=== PATIENT | female | born 1960 | race Caucasian/White ===

== ENCOUNTER 2025-03-12 13:58 | Outpatient (AMB) | payer MEDICARE, SELFPAY ==
--- OUTSIDE RECORDS SUMMARY | 2024-05-27 08:30 | XMS_ITS ---
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 Name Role Phone YUE ESTEVEZ Unavailable [phone] LALO PRATER [phone] Encounters Encounter Location Date Provider Diagnosis [facility] [address] [place] [address] 05/27/2024 LALO PRATER Plan Of Treatment Next Appt Details Provider Name:LALO PRATER , 05/13/2025 01:00:00 PM, [address], [address], [place], [address], Progress Notes * Varsha COOKeDOB: (65 yo F)Acc No.[id number]:05/27/2024 Patient: Wendi GARCIA Provider: Debbie PRATER :1960 A ge:64 Y S ex:Female Date:05/27/2024 Address:[address] [place] [address] * Electronic signature of SID PRATER PA-C, [id number] on 03/12/2025 at 06:35 PM EST Sign off status: Pending * Provider: Debbie PRATER Date: 0 05/27/2024 Generated for Printi ng/Faxing/eTransmitting on: 1 05/13/2024 06:35 PM EST
--- NOTE | 2025-03-12 14:01 | MHC.OFFVIS ---
Intake Visit Reasons: 6M Allergies lisinopril Allergy (Unknown, Verified 03/12/25 14:07) Unknown Medication List - Last Reconciled 03/12/25 by Hortensia Ordaz CNP albuterol sulfate 90 mcg/actuation 1 puff inhalation QID amlodipine 5 mg PO DAILY rvegpsrcso-maruntvlzpfom-zamj 50-325-40 mg 1 tab PO Q6H PRN 30 days gabapentin 800 mg PO TID trazodone mg PO BEDTIME PRN HPI Comments Details: She was doing okay. Over the last few months, she had few brief, sharp, shooting-pains to left side of head that lasted about 3 seconds. It could happen once every couple of weeks, none within the last four weeks or so. Some mild, pressure-type headaches to top of head. Butalbital as needed helps. Mood has been okay, working with psychiatrist. Had twin grandsons born 01/2024.?Seen at [facility] for headache around 11/2023. Stress is trigger for headaches. Previously, concerned about taking butalbital as she is caffeine sensitive. Maintains sleep schedule as it is important for managing bipolar disorder. She has history of anxiety, depression and bipolar disorder. She started having headaches when she was 22 years old treated by [facility] quite effectively. On January 25, 2021 she was seen in the emergency room for severe headache that had been going on for [address] scan was negative. She was given Fioricet which helped. Since then she has had a few headaches one for which he needed to take a single Fioricet. [facility] Medical History (Updated 03/12/25 @ 14:06 by Hortensia Ordaz CNP) Hyperlipidemia Hypertension Mood disorder Asthma Migraine Insomnia Tension headache Review of Systems Const Denies chills, Denies daytime sleepiness, Reports difficulty sleeping, Denies fatigue, Denies fever(s), Denies frequent falls, Reports headache(s), Denies increased appetite, Denies poor appetite, Denies snoring, Denies weakness, Denies weight gain and Denies weight loss Eyes Denies loss of vision ENT Denies vertigo, Reports dizziness, Reports headache(s) and Reports neck pain Card Denies chest pain at rest, Denies chest pain with activity, Denies syncope, Denies leg edema, Denies palpitations, Denies dyspnea and Denies dyspnea on exertion Resp Denies cough, Denies dyspnea, Denies dyspnea on exertion and Denies snoring GI Denies abdominal pain, Denies constipation, Denies heartburn, Denies diarrhea and Denies nausea Denies urinary frequency, Denies urinary incontinence and Denies urinary urgency Musc Denies abnormal gait, Reports back pain, Reports myalgias, Denies arthralgias, Reports neck pain, Denies numbness and Denies tingling Neuro Denies abnormal gait, Denies vertigo, Reports dizziness, Denies syncope, Denies frequent falls, Reports headache(s), Denies lack of coordination, Denies loss of vision, Denies memory loss, Denies numbness, Denies Other visual disturbances, Denies restless legs, Denies seizure-like activity, Denies tingling, Denies paresthesias, Denies tremor(s) and Denies weakness Psych Reports anxiety, Denies depression, Denies auditory hallucinations, Denies memory loss and Denies visual hallucinations Endo Denies fatigue and Denies palpitations Physical Exam Const Other: General Appearance:? normal, in no acute distress. Heart:? S1, S2 normal, no murmurs. Lungs:? clear anteriorly and posteriorly. Musculoskeletal:? normal. Extremities:? no edema. Psych:? alert, oriented, cognitive function intact, cooperative with exam. Neuro Other: Abnormal Neurological Findings:?none.? Mental Status: alert and oriented X 3. Normal attention, orientation, memory, and affect. Cranial Nerves: Pupils are equal, round, and reactive to light. External ocular muscles are intact. Visual zarate are full, no ptosis. Face is symmetrical, no facial weakness or droop. Facial sensations are normal. Tongue protrudes in midline. Palate elevates symmetrically. Shoulder shrugging is normal Motor Examination: Normal muscle tone, bulk and strength. No atrophy or fasciculations. No drift of the extended upper extremities. DTR 2+. Plantars are flexor. Sensory Exam: Normal light touch, temperature, pinprick, vibration, and joint-position sensations. Rhomberg sign is absent. Coordination: No ataxia. No titubation. Gait Exam: Within normal limits. Cerebellar Signs: Gezrrt-nz-hbgu is okay. Extrapyramidal System: No tremor, rigidity with normal facial expressions. No bradykinesia. No bradyphrenia. Normal arm swing and posture. No propulsion or retropulsion. Speech: Normal. Assessment & Plan Assessment & Plan (1) Tension headache: Code(s): G44.209 - Tension-type headache, unspecified, not intractable Category: Medical Plan: Continue idibnxotkz-ICXY-xtsx 50-325-40mg 1 tablet q6h as needed for headache #12 for 30 days. Follow up in 6 months or sooner as needed. Plan Meds tried: naproxen, sumatriptan Coding Level of Care Code Est Pt Level 4 (63901) Diagnoses Tension headache G44.209
--- OUTSIDE RECORDS SUMMARY | 2025-03-12 18:34 | XMS_ITS | Patient Health Record ---
Author Organization [facility] Address [address] [place] [address] Care Team Providers Care General Teller Name Role Phone GRZEGORZ DAVALOS Primary Care Provider Unavail able Hoda Marshall Unavailable [phone] Allergies Allergen (clinical drug ingredient) Drug/Non Drug Allergy documented on EMR Reaction Allergy Type Onset Date Status lisinopril Lisinopril Unknown Drug Allergy Activ e Reason For Referral No Information Medications Medication SIG (Take, Route, Frequency, Duration) Notes Start Date End Date Status Cinnamon 500 MG as directed Orally Active Glucosamine Chond Complex/MSM - as directed Orally Active Probiotic - as directed Orally Active Ventolin HFA 108 (90 Base) MCG/ACT 1 puff as needed Inhalation every 4 hrs Active Multi-Vitamin - 1 tablet Orally Once a day; Duration: 30 day(s) Active Alpha Lipoic Acid 200 MG 1 capsule Orally Once a day; Duration: 30 day(s) Active Fish Oil 1200 MG 1 capsule Orally Onc e a day; Duration: 30 day(s) Active Melatonin 5 MG 1 tablet in the evening Orally Once a day; Duration: 30 day(s) Unknown Dose Active LORazepam 0.5 MG 1 tablet at bedtime as needed Orally Once a day NEEDED Active ProAir HFA Active 5-HTP 50 MG 1 capsule with a denise l Orally Once a day; Duration: 30 day(s) Unknown Dose Active Fmlgneelje-PFII-Eqslvee e 50-300-40 MG 2 capsule as needed Orally Active cloNIDine HCl 0.2 MG 1 Orally twice daily [facility] 10/17/19 14 Active Vitamin D3 125 MCG (5000 UT) as directed Orally Active Gabapentin 800 MG 1 Orally daily [facility] 10/16/2013 Active Collagen Ultra - as directed Orally Active traZODone HCl 150 MG 1 tablet at bedtime Orally Once a day; Duration: 30 day(s) Active amLODIPine Besylate 5 MG TAKE 1 TABLET BY MOUTH EVERY DAY Oral; Duration: 90 Active Social History Tobacco Use: Social History Observation Description Date Details (start date - stop date) Former Smoker NA - NA Tobacco Use/Smoking Question Answer Notes Are you a former smoker How long has it been since you last smoked? > 10 years Alcohol Screen (Audit-C) Question Answer Notes Did you have a drink contain ing alcohol in the past year? Yes How often did you have a dri nk containing alcohol in the past year? 2 to 3 times a week (3 points) How many drinks did you have on a typical day when you were drinking in the past year? 3 or 4 drinks (1 point) Points 4 Interpretation Positive Sexual History Question Answer Notes Had sex in the past 12 months (vaginal, oral, or anal)? No Section Notes: MARITAL STATUS: CHILDREN: 2 Children LIVES WITH: spouse OCCUPATION: employed full-time NUTRITION: average diet EXERCISE: regular walking SEXUAL ACTIVITY: monogamous relationship. CONTRACEPTION: tubal ligation .CE: Smoking: Former smoker .CE: ALCOHOL: socially drinks alcohol TEXT MESSAGING WHILE DRIVING: no SUNSCREEN: yes ILLICIT DRUGS: no SEATBEALT: yes MARITAL STATUS: CHILDREN: 2 Children LIVES WITH: spouse OCCUPATION: employed full-time NUTRITION: average diet EXERCISE: regular walking SEXUAL ACTIVITY: monogamous relationship. CONTRACEPTION: tubal ligation .CE: Smoking: Former smoker .CE: ALCOHOL: socially drinks alcohol TEXT MESSAGING WHILE DRIVING: no SUNSCREEN: yes ILLICIT DRUGS: no SEATBEALT: yes MARITAL STATUS: CHILDREN: 2 Children LIVES WITH: spouse OCCUPATION: employed full-time NUTRITION: average diet EXERCISE: regular walking SEXUAL ACTIVITY: monogamous relationship. CONTRACEPTION: tubal ligation .CE: Smoking: Former smoker .CE: ALCOHOL: socially drinks alcohol TEXT MESSAGING WHILE DRIVING: no SUNSCREEN: yes ILLICIT DRUGS: no SEATBEALT: yes Problems Problem Type SNOMED Code ICD Code Onset Dates Problem Status W/U Status Risk Notes Problem Postmenopausal atrophic vaginitis (98875390) Postmenopausal atrophic vaginitis (N95.2) Active confirmed Problem Essential hypertension (97009132) Essential (primary) hypertension (I10) Active confirmed Problem Anxiety disorder (562685089) Anxiety disorder, unspecified (F41.9) Active confirmed Problem Asthma (995778211) Other asthma (J45.998) Active confirmed Problem Congenital deformity of hip joint (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) 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) Active confirmed Problem Excessive and frequent menstruation (842160005) Excessive or frequent menstruation (626.2) Active confirmed Diag Problem Gynecological examination normal (881685449759268) Routine gynecological examination (V72.31) Active confirmed Major Plan Of Treatment Pending Test Test Name Order Date MAMMOGRAM, SCREENING 07/29/2021 THIN PREP,HPV,DAKOTAH IF HPV+ (>29YR)(SCRN) 12/26/2017 BONE DENSITY 10/27/2022 MM Digital Mammo Screening 12/26/2017 MM Digital Mammo Screening 10/27/2022 MM Digital Mammo Screening 07/27/2020 MM Digital Mammo Screening 07/29/2021 Next Appt Details Provider Name:Hoda Grant brian, 04/18/2025 02:00:00 PM, [address] [facility], [address], [place], [address], Insurance Providers Payer Name Payer Address Payer Phone Subscriber Number Group Number Insured Name Patient Relationship to Insured Coverage Start Date Coverage End Date [employer] MEDICARE PPO [address] [place] [address] [id number] KIERA MOREJON Self - patient is the insured Medical (General) History Medical History History ICD Code Excessive and frequent menstruation with regular cycle N92.0 Postmenopausal atrophic vaginitis N95.2 Anxiety disorder, unspecified F41.9 Essential (primary) hypertension I10 Other specified congenital deformities o f hip Q65.89 Other asthma J45.998 Surgical History Surgery Date(Month/Year) Bilateral Tubal Ligation Colonoscopy Bilateral Hip Reconstruction Sinus Surgery Hospitalization History Reason Date(Month/Year) Child See Surgery Hx ER Visit for Headache
--- OUTSIDE RECORDS SUMMARY | 2025-03-12 18:35 | XMS_ITS | Patient Health Record ---
Author Organization [facility] [address] Address [address] [place] [address] Care Team Providers Care Turkey Cleaner Name Role Phone YUE ESTEVEZ Unavailable [phone] YolaFarzaneh peña Unavailable [phone] LUIDYLLAN LALO Unavailable [phone] Allergies Allergen (clinical drug ingredient) Drug/Non Drug Allergy documented on EMR Reaction Allergy Type Onset Date Status lisinopril Lisinopril swollen lips Drug Allergy Ac tive Results Component Value Reference Range Flag Notes LIPID PANEL WITH REFLEX TO D IRECT LDL Reviewed date:01/07/2025 03:24:52 PM Interpretation: Performing Lab: Notes/Report: Cholesterol 220 0-200 mg/dL H Triglycerides 55 0-150 mg/dL HDL 106 >=40 mg/dL LDL Calculated 103 0-100 mg/dL H Estimated LDL Calculated using equation: Total cholesterol - HDL cholesterol - (Triglycerides/5) VLDL Cholesterol Isaac 11 Non HDL Chol. (LDL+VLDL) 114 <145 mg/dL Chol/HDL Ratio 2.1 0.0-4.4 VITAMIN D 25 HYDROXY Reviewed date:01/07/2025 08:47:38 AM Interpretation: Performing Lab: Notes/Report: Vit D, 25-Hydroxy 68.2 30.0-80.0 ng/mL COMPREHENSIVE METABOLIC PANE L Reviewed date:01/07/2025 08:47:51 AM Interpretation: Performing Lab: Notes/Report: Sodium 135 133-145 mmol/L Potassium 3.9 3.5-5.5 mmol/L Chloride 104 96-110 mmol/L CO2 27 21-32 mmol/L Anion Gap 4 3-11 Glucose 89 70-100 mg/dL BUN 13 5-25 mg/dL Creatinine 0.94 0.50-1.10 mg/dL eGFR 67 >=60 mL/min/1.73m2 Calculation based on the Chronic Kidney Disease Epidemiology Collaboration (CKD-EPI) equation refit without adjustment for race. BUN/Creatinine Ratio 13.8 Calcium 9.1 8.5-10.5 mg/dL AST (SGOT) 21 10-42 unit/L ALT (SGPT) 23 10-60 unit/L Alkaline Phosphatase 80 42-121 unit/L Total Protein 7.5 6.0-8.0 g/dL Albumin 3.9 3.2-5.0 g/dL Total Bilirubin 0.4 0.0-1.4 mg/dL THYROID STIMULATING HORMONE WITH REFLEX TO FREE T4 AND FREE T3 Reviewed date:01/07/2025 08:47:42 AM Interpretation: Performing Lab: Notes/Report: TSH 1.41 0.40-4.00 mcIU/mL CBC WITH AUTO DIFFERENTIAL Reviewed date:01/07/2025 08:48:10 AM Interpretation: Performing Lab: Notes/Report: WBC 6.1 4.8-10.8 K/mcL RBC 4.20 3.80-4.80 M/mcL Hemoglobin 12.9 11.5-16.0 g/dL Hematocrit 39.3 35.0-47.0 % MCV 92.9 79.0-98.0 FL MCH 30.5 27.0-32.0 pcg MCHC 32.8 32.0-37.0 g/dL RDW 13.4 11.0-15.0 % Platelets 314 130-400 K/mcL MPV 11.0 7.0-11.0 FL NRBC 0.0 <1.0 % NRBC Absolute 0.00 <0.10 K/mcL Neutrophils Relative 49.6 Lymphocytes Relative 32.4 Monocytes Relative 12.7 Eosinophils Relative 4.0 Basophils Relative 1.0 Immature Granulocytes Relative 0.3 Neutrophils Absolute 3.00 1.50-7.00 K/mcL Lymphocytes Absolute 1.96 1.00-5.00 K/mcL Monocytes Absolute 0.77 0.20-1.00 K/mcL Eosinophils Absolute 0.24 0.00-0.50 K/mcL Basophils Absolute 0.06 0.00-0.20 K/mcL Immature Granulocytes Absolute 0.02 0.00-0.03 K/mcL URINALYSIS WITH REFLEX MICRO SCOPIC Reviewed date:01/07/2025 03:24:56 PM Interpretation: Performing Lab: Notes/Report: Specific [place] Urine 1.014 1.003-1.030 pH, Urine 7.5 5.0-8.0 pH Leukocytes, Urine Large Negative A Nitrite, Urine Negative Negative Protein, Urine Negative <=Trace mg/dL Glucose, Urine Negative Negative mg/dL Ketones, Urine Negative Negative mg/dL Urobilinogen, Urine 1.0 0.2-1.0 mg/dL Bilirubin, Urine Negative Negative Blood, Urine Negative Negative RBC, Urine 0.0 0-4 /HPF WBC, Urine 8.0 0-4 /HPF H Squamous Epithelial, Urine 33 0-60 /LPF Bacteria, Urine Few Negative /HPF A Hyaline Casts, Urine 0.8 0-3 /LPF Non-Squamous Epithelial, Urine 5-10 Transitional epithelial cells. LIPID PANEL, STANDARD Reviewed date:06/26/2024 04:10:06 PM Interpretation: Performing Lab:NL2, [employer] [id number] Harmeet Polo Notes/Report: FASTING:NO FASTING: NO CHOLESTEROL, TOTAL 229 <200 mg/dL H HDL CHOLESTEROL 91 > OR = 50 mg/dL N TRIGLYCERIDES 86 <150 mg/dL N LDL-CHOLESTEROL 119 H Reference range: <100 Desirable range <100 mg/dL for primary prevention; <70 mg/dL for patients with CHD or diabetic patients with > or = 2 CHD risk factors. LDL-C is now calculated using the Levy-Lacy calculation, which is a validated novel method providing better accuracy than the Friedewald equation in the estimation of LDL-C. Levy CHAN et al. GARY. 2013;310(19): 4784-1231 (http://education.Heart Health.com/faq /MBG604) CHOL/HDLC RATIO 2.5 <5.0 (calc) N NON HDL CHOLESTEROL 138 <130 mg/dL (calc) H For patients with diabetes plus 1 major ASCVD risk factor, treating to a non-HDL-C goal of <100 mg/dL (LDL-C of <70 mg/dL) is considered a therapeutic option. BD BONE DENSITY DXA AXIAL SK [facility] Reviewed date:02/04/2025 08:51:41 AM Interpretation: Performing Lab: Notes/Report: See Note [facility], a member of [employer] HISTORY: The patient is a 65-year-old postmenopausal female with clinical concern for metabolic bone disease. The patient has undergone previous bilateral hip replacement surgery. FINDINGS: Dual energy x-ray absorptiometry of the lumbar spine is performed. The mean bone mineral density at L1-L4 (with the exclusion of L3) is 1.031 gm/cm2 which is 88% of that of young normals and 97% of that of age matched controls. This yields a T-score of -1.2 and a Z-score of -0.3 which is diagnostic of osteopenia. IMPRESSION: Osteopenia. There has been a decrease of 7.0% in bone mineral density in the lumbar spine since the prior examination of 12/28/2018. Code 10525 -------- FINAL REPORT -------- Dictated By: Oswald Witt Dictated Date: 02/04/2025 08:06 ET Assigned Physician: Oswald Witt Reviewed and Electronically Signed By: Oswald Witt Signed Date: 02/04/2025 08:08 ET Workstation ID: [id number] Transcribed By: Self Edit Transcribed Date: 02/04/2025 08:06 ET Reason For Referral No Information Medications Medication SIG (Take, Route, Frequency, Duration) Notes Start Date End Date Status amLODIPine Besylate 5 MG Tablet TAKE ONE TABLET BY MOUTH EVERY DAY; Duration: 90 Active Albuterol Sulfate HFA 108 (90 Base) MCG/ACT Aerosol Solution 1 puff as needed Inhalation every 4 hrs; Duration: 30 days As needed for shortness of breath or wheezing Active Multi Vitamin 05/11/2023 Activ e Collagen Active LORazepam 0.5 MG Tablet TAKE 1 TABLET BY MOUTH DAILY AT BEDTIME NEEDED FOR ANXIETY FOR UP TO 30 DAYS Oral; Duration: 30 Days Active Gabapentin 800 MG Tablet TAKE 1 TABLET B Y MOUTH THREE TIMES A DAY Oral; Duration: 90 Days Active Fish Oil 1200 MG Capsule 1 capsule Orall y Three times a day; Duration: 30 day(s) 05/11/2023 Active Calcium 600 MG Tablet 1 tablet with meal s Orally Twice a day; Duration: 30 day(s) 05/11/2023 Active Glucosamine Chondr 1500 Complx - Capsule as directed Orally Activ e Probiotic & Acidophilus Ex St Active traZODone HCl 150 MG Tablet TAKE 1 AND 1 /2 TO 2 TABLETS BY MOUTH EVERY NIGHT NEEDED FOR SLEEP Oral; Duration: 90 Days Active Alpha Lipoic Acid 200 MG Capsule 1 capsule Orally Once a day Active Social History Tobacco Use: Social History Observation Description Date Details (start date - stop date) Former Smoker NA - NA Social History Drugs/Alcohol: Social Info Question Answer Notes Alcohol Screen (Audit-C) Did you have a drink containing alcohol in the past year? Yes How often did you have a drink containing alcohol in the past year? Monthly or less (1 point) Points 1 Interpretation Negative Drugs Have you used drugs other than those for medical reasons in the past 12 months? No Tobacco Use: Social Info Question Answer Notes Tobacco Use/Smoking Are you a former smoker How long has it been since you last smoked? > 10 years Section Notes: quit smoking in 1980 quit smoking in 1980 quit smoking in 1980 quit smoking in 1980 quit smoking in 1980 quit smoking in 1980 quit smoking in 1980 quit smoking in 1980 quit smoking in 1980 quit smoking in 1980 quit smoking in 1980 quit smoking in 1980 Problems Problem Type SNOMED Code ICD Code Onset Dates Problem Status W/U Status Risk Notes Problem Obesity (151116439) Other obesity (E66.8) Active confirmed Problem Mixed hyperlipidemia (220258105) Mixed hyperlipidemia (E78.2) Active confirmed Problem Insomnia (177792069) Other insomnia (G47.09) Active confirmed Problem Lipid screening (836620408) Encounter for screening for lipoid disorders (Z13.220) Active confirmed Problem Hyperlipidaemia (73551231) Hyperlipidemia, unspecified hyperlipidemia type (E78.5) Active confirmed Problem Anxiety (18957868) Anxiety (F41.9) Active confi rmed Problem Adult health examination (523176619) Adult general medical exam (Z00.00) Active confirmed Problem Vitamin D deficiency (23535915) Vitamin D deficiency (E55.9) Active confirmed Problem Diabetes mellitus screening (835009480) Diabetes mellitus screening (Z13.1) Active confirmed Problem Mild intermittent asthma (987045059) Mild intermittent asthma without complication (J45.20) Active confirmed Problem Obese class I (467838066374069) BMI 33.0-33.9,adult (Z68.33) Active confirmed Problem BMI 30+ - obesity (419202294) BMI 32.0-32.9,adult (Z68.32) Active confirmed Problem Primary hypertension (38850677) Primary hypertension (I10) Active confirmed Problem Body mass index 30.00 to 34.99 (470635407490747) BMI 31.0-31.9,adult (Z68.31) Active confirmed Problem Adult-onset obesity (651230949) Adult-onset obesity (E66.9) Active confirmed Problem Avitaminosis D (88342539) Avitaminosis D (E55.9) Active confirmed Problem Endocrine/metaboli c screening (476252852) Encounter for screening for endocrine disorder (Z13.29) Active confirmed Problem Episodic migraine (959225731239076) Episodic migraine (G43.909) Active confirmed Problem Bipolar disorder (86038892) Bipolar disease, chronic (F31.9) Active confirmed Problem Insomnia due to mental disorder (06239320) Insomnia due to mental disorder (F51.05) Active confirmed Vital Signs Heart Rate 83 /min 01/07/2025 Oximetry 95 % 01/07/2025 Blood pressure diastolic 64 mm Hg 01/07/2025 Height 63 in 01/07/2025 Blood pressure systolic 118 mm Hg 01/07/2025 Weight 186 lbs 01/07/2025 BMI 32.94 kg/m2 01/07/2025 Encounters Encounter Location Date Provider Diagnosis [facility] [address] [address] 04/01/2024 LALO PRATER Adult-onset obesity E66.9 ; BMI 33.0-33.9,adult Z68.33 ; Primary hypertension I10 ; Bipolar disease, chronic F31.9 ; Mild intermittent asthma without complication J45.20 ; Other insomnia G47.09 ; Hyperlipidemia, unspecified hyperlipidemia type E78.5 ; Episodic migraine G43.909 ; Acute left ankle pain M25.572 and Hot flashes R23.2 [facility] [address] [address] 04/29/2024 LALO PRATER Adult-onset obesity E66.9 ; BMI 32.0-32.9,adult Z68.32 ; Primary hypertension I10 ; Bipolar disease, chronic F31.9 ; Mild intermittent asthma without complication J45.20 ; Other insomnia G47.09 ; Hyperlipidemia, unspecified hyperlipidemia type E78.5 and Episodic migraine G43.909 [facility] [address] 05/27/2024 LALO PRATER Adult-onset obesity E66.9 ; BMI 32.0-32.9,adult Z68.32 ; Primary hypertension I10 ; Bipolar disease, chronic F31.9 ; Mild intermittent asthma without complication J45.20 ; Other insomnia G47.09 ; Hyperlipidemia, unspecified hyperlipidemia type E78.5 and Episodic migraine G43.909 [facility] [address] [address] 06/24/2024 LALO PRATER Adult-onset obesity E66.9 ; BMI 31.0-31.9,adult Z68.31 ; Primary hypertension I10 ; Bipolar disease, chronic F31.9 ; Mild intermittent asthma without complication J45.20 ; Other insomnia G47.09 ; Hyperlipidemia, unspecified hyperlipidemia type E78.5 and Episodic migraine G43.909 [facility] [address] [address] 06/26/2024 LALO PRATER Mixed hyperlipidemia E78.2 ; Primary hypertension I10 ; Mild intermittent asthma without complication J45.20 ; Bipolar disease, chronic F31.9 ; Other insomnia G47.09 ; Anxiety F41.9 ; Episodic migraine G43.909 and Obesity (BMI 30.0-34.9) E66.811 [facility] [address] [address] 11/19/2024 Farzaneh Svrcek Left wrist pain M25. 532 and Primary hypertension I10 [facility] [address] [address] 01/07/2025 LALO PRATER Adult general medica l exam Z00.00 ; Depression screen Z13.31 ; Encounter for screening for other disorder Z13.89 ; Adult-onset obesity E66.9 ; BMI 32.0-32.9,adult Z68.32 ; Advance care planning Z71.89 ; Primary hypertension I10 ; Bipolar disease, chronic F31.9 ; Anxiety F41.9 ; Episodic migraine G43.909 ; Mixed hyperlipidemia E78.2 and Insomnia due to mental disorder F51.05 [facility] [address] [place] [address] 04/04/2024 LALO BIRKS [facility] [address] [place] [address] 04/12/2024 LALO BIRKS [facility] [address] [place] [address] 04/29/[address] [facility] [address] [place] [address] 11/15/2024 YUE ESTEVEZ [facility] [address] [place] [address] 12/24/2024 LALO BIRKS [facility] [address] [place] [address] 02/03/2025 LALO BIRKS [facility] [address] [place] [address] 02/04/2025 LALO BIRKS [facility] [address] [place] [address] 02/04/[address] [facility] [address] [place] [address] 04/03/[address] [facility] [address] [place] [address] 04/05/[address]KS [facility] [address] [place] [address] 04/11/[address]KS [facility] [address] [place] [address] 04/11/[address]KS [facility] [address] [place] [address] 04/11/2024 YUE ESTEVEZ [facility] [address] [place] [address] 04/15/[address]IRKS [facility] [address] [place] [address] 07/23/2024 YUE ESTEVEZ [facility] [address] [place] [address] 08/02/[address]IRKS [facility] [address] [place] [address] 08/05/[address] [facility] [address] [facility] [place] [address] 10/14/[address]ATER [facility] [address] [facility] [place] [address] 11/15/2024 YUE [address]EVEZ [facility] [address] [place] [address] 11/24/2024 YUE ESTEVEZ [facility] [address] [place] [address] 12/07/2024 LALO PRATER Encounter for screen ing for osteoporosis Z13.820 Assessments Encounter Date Diagnosis (ICD Code) Assessment Notes Treatment Notes Treatment Clinical Notes Section Notes 04/01/2024 BMI 33.0-33.9,adult (ICD-10 - Z68.33) Patient is here for weight management follow-up. We focused on significance of healthy lifestyle changes. We talked about need to track steps with goal between 6000-10,000 steps daily, focus on portion control, read food labels, get adequate sleep between 7 to 8 hours, get adequate rest to the body, meditate, frequent nutritious meals including vegetables and healthy choices of lean meats, fish, and elimination of refined carbohydrates. We also talked about mindfulness and mindful eating. Particular focus was on continuing to improve diet and increase physical activity as well as reducing alcohol consumption. Total time spent with 30 minutes with greater than 50% spent on counseling and coordinating care. 11/30/2023:Weight 184, BMI 32 Extensively educated on lifestyle modifications including high-protein foods, low carbohydrate snacks, healthy fats, sleep hygiene, stress reduction. Provided with educational documentation in regards to all of this. Discussed cortisol manager [place] for sleep. Options limited for medication secondary to Medicare. Discussed Contrave which patient would like to avoid because she does drink alcohol on occasion. Avoid phentermine due to age. Patient also has a history of insomnia/difficulty sleeping. Will obtain blood work for physical in 4 weeks. 01/03/2024: Weight 184, BMI 32.7. Patient's weight has plateaued since consultation last visit. She is still working on lifestyle. Hesitant to start GLP-1 secondary to patient's concern for hair loss. Is going to contact her health insurance to see if they cover medication such as Wegovy or Zepbound. Otherwise, discussed [id number] options but patient states that this is a challenge for her to afford. Continue to encourage that she is able to do this with lifestyle alone with consistency. 02/28/24: Weight 186, BMI 32. Patient is going to contact her health insurance to see if they cover medication such as Zepbound or Wegovy and with the rij-cf-[id number] cost looks like. Avoid Contrave due to other psychiatric medications.Avoid phentermine secondary to history of hypertension, Continue to encourage lifestyle, Body scan showing 2 pounds of increased fat, but also 2 pounds of increased muscle. 04/01/2024: Weight 189 pounds, BMI 33.48. Currently not on weight loss medication. She is not a good candidate for Contrave given concomitant psychiatric medications. Would avoid phentermine given history of hypertension. Discussed Wegovy and Zepbound and patient will contact insurance to understand which medication may be covered by plan. Reviewed goals of lifestyle including diet and exercise. Plan to follow-up in approximately 1 month for further management. # Left ankle pain: Patient reporting injury to left ankle while she was consuming alcohol, was dressing and had a mechanical fall on her left foot. Reports improvement in pain overall, following up with podiatry tomorrow at [facility] [place] with Dr. Sheldon Spencer. Advised to continue [id number] Tylenol or ibuprofen as needed for pain. Will continue to monitor. # Hot flashes: Reporting on and off sensation of feeling hot then cold. TSH within normal limits at 1.670. She is in menopause at this time. Was previously on hormone replacement therapy however discontinued due to risks associated. Can consider DHEA-S for symptomatic treatment. # Osteoporosis of forearm and femoral head/hip: Taking vitamin D/calcium. Finding in 2022 with plan to repeat in next 1 to 2 years. Not interested in medication for treatment of osteoporosis at this time. # Hypertension: Continue amlodipine 5 mg once daily. No longer taking clonidine. Discussed red flag signs of hypertension clinic but not limited to headache, blurry vision, chest pain, difficulty breathing, dizziness, or weakness. Will continue to monitor. # Asthma: Currently well-controlled without maintenance inhalers. Continue albuterol sulfate as needed. # Bipolar disorder: History of 2 prior hospitalizations. Currently stable on current regimen followed by psychiatry through [facility]. # Insomnia: Continue trazodone and gabapentin. Medications managed by psychiatry. # Hyperlipidemia: Total cholesterol on 12/06/2023 with LDL 107. Reviewed importance of lifestyle to help lower cholesterol and prevent other comorbidities. Will repeat lipid panel in 6 months and consider statin if increased. Discussed importance of incorporating fish oil. # Anxiety: Stable at this time, managed with psychiatry through [facility]. Infrequently uses lorazepam for panic symptoms. Reports some improvement with the clonidine. # Migraines: Per chart review has had 2 ED visits due to severe headaches. Follows with Dr. Troy with neurology. Trialed sumatriptan however made her nauseous. Continue butalbital, APAP, and caffeine tablet. 04/01/2024 Adult-onset obesity (ICD-10 - E66.9) Patient is here for weight management follow-up. We focused on significance of healthy lifestyle changes. We talked about need to track steps with goal between 6000-10,000 steps daily, focus on portion control, read food labels, get adequate sleep between 7 to 8 hours, get adequate rest to the body, meditate, frequent nutritious meals including vegetables and healthy choices of lean meats, fish, and elimination of refined carbohydrates. We also talked about mindfulness and mindful eating. Particular focus was on continuing to improve diet and increase physical activity as well as reducing alcohol consumption. Total time spent with 30 minutes with greater than 50% spent on counseling and coordinating care. 11/30/2023:Weight 184, BMI 32 Extensively educated on lifestyle modifications including high-protein foods, low carbohydrate snacks, healthy fats, sleep hygiene, stress reduction. Provided with educational documentation in regards to all of this. Discussed cortisol manager [place] for sleep. Options limited for medication secondary to Medicare. Discussed Contrave which patient would like to avoid because she does drink alcohol on occasion. Avoid phentermine due to age. Patient also has a history of insomnia/difficulty sleeping. Will obtain blood work for physical in 4 weeks. 01/03/2024: Weight 184, BMI 32.7. Patient's weight has plateaued since consultation last visit. She is still working on lifestyle. Hesitant to start GLP-1 secondary to patient's concern for hair loss. Is going to contact her health insurance to see if they cover medication such as Wegovy or Zepbound. Otherwise, discussed [id number] options but patient states that this is a challenge for her to afford. Continue to encourage that she is able to do this with lifestyle alone with consistency. 02/28/24: Weight 186, BMI 32. Patient is going to contact her health insurance to see if they cover medication such as Zepbound or Wegovy and with the [id number] cost looks like. Avoid Contrave due to other psychiatric medications.Avoid phentermine secondary to history of hypertension, Continue to encourage lifestyle, Body scan showing 2 pounds of increased fat, but also 2 pounds of increased muscle. 04/01/2024: Weight 189 pounds, BMI 33.48. Currently not on weight loss medication. She is not a good candidate for Contrave given concomitant psychiatric medications. Would avoid phentermine given history of hypertension. Discussed Wegovy and Zepbound and patient will contact insurance to understand which medication may be covered by plan. Reviewed goals of lifestyle including diet and exercise. Plan to follow-up in approximately 1 month for further management. # Left ankle pain: Patient reporting injury to left ankle while she was consuming alcohol, was dressing and had a mechanical fall on her left foot. Reports improvement in pain overall, following up with podiatry tomorrow at [facility] [place] with Dr. Sheldon Spencer. Advised to continue [id number]-xoeypta Tylenol or ibuprofen as needed for pain. Will continue to monitor. # Hot flashes: Reporting on and off sensation of feeling hot then cold. TSH within normal limits at 1.670. She is in menopause at this time. Was previously on hormone replacement therapy however discontinued due to risks associated. Can consider DHEA-S for symptomatic treatment. # Osteoporosis of forearm and femoral head/hip: Taking vitamin D/calcium. Finding in 2022 with plan to repeat in next 1 to 2 years. Not interested in medication for treatment of osteoporosis at this time. # Hypertension: Continue amlodipine 5 mg once daily. No longer taking clonidine. Discussed red flag signs of hypertension clinic but not limited to headache, blurry vision, chest pain, difficulty breathing, dizziness, or weakness. Will continue to monitor. # Asthma: Currently well-controlled without maintenance inhalers. Continue albuterol sulfate as needed. # Bipolar disorder: History of 2 prior hospitalizations. Currently stable on current regimen followed by psychiatry through [facility]. # Insomnia: Continue trazodone and gabapentin. Medications managed by psychiatry. # Hyperlipidemia: Total cholesterol on 12/06/2023 with LDL 107. Reviewed importance of lifestyle to help lower cholesterol and prevent other comorbidities. Will repeat lipid panel in 6 months and consider statin if increased. Discussed importance of incorporating fish oil. # Anxiety: Stable at this time, managed with psychiatry through [facility]. Infrequently uses lorazepam for panic symptoms. Reports some improvement with the clonidine. # Migraines: Per chart review has had 2 ED visits due to severe headaches. Follows with Dr. Troy with neurology. Trialed sumatriptan however made her nauseous. Continue butalbital, APAP, and caffeine tablet. 04/29/2024 BMI 32.0-32.9,adult (ICD-10 - Z68.32) Patient is here for weight management follow-up. We focused on significance of healthy lifestyle changes. We talked about need to track steps with goal between 6000-10,000 steps daily, focus on portion control, read food labels, get adequate sleep between 7 to 8 hours, get adequate rest to the body, meditate, frequent nutritious meals including vegetables and healthy choices of lean meats, fish, and elimination of refined carbohydrates. We also talked about mindfulness and mindful eating. Particular focus was on continuing to improve diet and increase physical activity as well as reducing alcohol consumption. Total time spent with 30 minutes with greater than 50% spent on counseling and coordinating care. 11/30/2023:Weight 184, BMI 32 Extensively educated on lifestyle modifications including high-protein foods, low carbohydrate snacks, healthy fats, sleep hygiene, stress reduction. Provided with educational documentation in regards to all of this. Discussed cortisol manager [place] for sleep. Options limited for medication secondary to Medicare. Discussed Contrave which patient would like to avoid because she does drink alcohol on occasion. Avoid phentermine due to age. Patient also has a history of insomnia/difficulty sleeping. Will obtain blood work for physical in 4 weeks. 01/03/2024: Weight 184, BMI 32.7. Patient's weight has plateaued since consultation last visit. She is still working on lifestyle. Hesitant to start GLP-1 secondary to patient's concern for hair loss. Is going to contact her health insurance to see if they cover medication such as Wegovy or Zepbound. Otherwise, discussed [id number] options but patient states that this is a challenge for her to afford. Continue to encourage that she is able to do this with lifestyle alone with consistency. 02/28/24: Weight 186, BMI 32. Patient is going to contact her health insurance to see if they cover medication such as Zepbound or Wegovy and with the [id number] cost looks like. Avoid Contrave due to other psychiatric medications.Avoid phentermine secondary to history of hypertension, Continue to encourage lifestyle, Body scan showing 2 pounds of increased fat, but also 2 pounds of increased muscle. 04/01/2024: Weight 189 pounds, BMI 33.48. Currently not on weight loss medication. She is not a good candidate for Contrave given concomitant psychiatric medications. Would avoid phentermine given history of hypertension. Discussed Wegovy and Zepbound and patient will contact insurance to understand which medication may be covered by plan. Reviewed goals of lifestyle including diet and exercise. Plan to follow-up in approximately 1 month for further management. 04/29/2024: Weight 183 pounds, BMI 32.41. Seca scan completed today and interpreted with patient. She is down approximately 6 pounds from last visit. Prior authorization for Wegovy denied by insurance. Otherwise has been implementing lifestyle modifications including exercise. Reviewed goals of diet and hydration of 60 to 80 ounces daily. At this time we will trial Contrave 8-90 mg. Discussed proper use of the medication and potential side effect profile including but not limited to headache, dizziness, dry mouth, and GI upset. Advised that medication requires a prior authorization which can take 2 to 4 weeks. If medication is uncovered she will pay as much as $99 per month through [email or web address]. Patient understanding. She will follow-up in office in 4 weeks for further management. # Osteoporosis of forearm and femoral head/hip: Taking vitamin D/calcium. Finding in 2022 with plan to repeat in next 1 to 2 years. Not interested in medication for treatment of osteoporosis at this time. # Hypertension: BP 118/76. Continue amlodipine 5 mg once daily. No longer taking clonidine. Discussed red flag signs of hypertension clinic but not limited to headache, blurry vision, chest pain, difficulty breathing, dizziness, or weakness. Will continue to monitor. # Asthma: Currently well-controlled without maintenance inhalers. Continue albuterol sulfate as needed. # Bipolar disorder: History of 2 prior hospitalizations. Currently stable on current regimen followed by psychiatry through [facility]. # Insomnia: Continue trazodone and gabapentin. Medications managed by psychiatry. # Hyperlipidemia: Total cholesterol on 12/06/2023 with LDL 107. Reviewed importance of lifestyle to help lower cholesterol and prevent other comorbidities. Will repeat lipid panel in 6 months and consider statin if increased. Discussed importance of incorporating fish oil. # Anxiety: Stable at this time, managed with psychiatry through [facility]. Infrequently uses lorazepam for panic symptoms. Reports some improvement with the clonidine. # Migraines: Per chart review has had 2 ED visits due to severe headaches. Follows with Dr. Troy with neurology. Trialed sumatriptan however made her nauseous. Continue butalbital, APAP, and caffeine tablet. All questions have been answered to patient's satisfaction. Patient verbalized understanding of diagnosis and treatments explained. Advised to call sooner prior to next visit it any questions/concerns arise. Case discussed with collaborating physician Hudson Vela who reviewed the assessment and plan. Chart, medications, labs, vital signs reviewed. Dictation was accomplished with the use of [employer] voice recognition software, which is prone to medical misidentifications and grammatical errors. This are unintentional and the practitioner does try to identify and correct these, but some could still be present. Please do not hesitate to contact practitioner for clarification. 04/29/2024 Adult-onset obesity (ICD-10 - E66.9) Patient is here for weight management follow-up. We focused on significance of healthy lifestyle changes. We talked about need to track steps with goal between 6000-10,000 steps daily, focus on portion control, read food labels, get adequate sleep between 7 to 8 hours, get adequate rest to the body, meditate, frequent nutritious meals including vegetables and healthy choices of lean meats, fish, and elimination of refined carbohydrates. We also talked about mindfulness and mindful eating. Particular focus was on continuing to improve diet and increase physical activity as well as reducing alcohol consumption. Total time spent with 30 minutes with greater than 50% spent on counseling and coordinating care. 11/30/2023:Weight 184, BMI 32 Extensively educated on lifestyle modifications including high-protein foods, low carbohydrate snacks, healthy fats, sleep hygiene, stress reduction. Provided with educational documentation in regards to all of this. Discussed cortisol manager [place] for sleep. Options limited for medication secondary to Medicare. Discussed Contrave which patient would like to avoid because she does drink alcohol on occasion. Avoid phentermine due to age. Patient also has a history of insomnia/difficulty sleeping. Will obtain blood work for physical in 4 weeks. 01/03/2024: Weight 184, BMI 32.7. Patient's weight has plateaued since consultation last visit. She is still working on lifestyle. Hesitant to start GLP-1 secondary to patient's concern for hair loss. Is going to contact her health insurance to see if they cover medication such as Wegovy or Zepbound. Otherwise, discussed [id number] options but patient states that this is a challenge for her to afford. Continue to encourage that she is able to do this with lifestyle alone with consistency. 02/28/24: Weight 186, BMI 32. Patient is going to contact her health insurance to see if they cover medication such as Zepbound or Wegovy and with the [id number] cost looks like. Avoid Contrave due to other psychiatric medications.Avoid phentermine secondary to history of hypertension, Continue to encourage lifestyle, Body scan showing 2 pounds of increased fat, but also 2 pounds of increased muscle. 04/01/2024: Weight 189 pounds, BMI 33.48. Currently not on weight loss medication. She is not a good candidate for Contrave given concomitant psychiatric medications. Would avoid phentermine given history of hypertension. Discussed Wegovy and Zepbound and patient will contact insurance to understand which medication may be covered by plan. Reviewed goals of lifestyle including diet and exercise. Plan to follow-up in approximately 1 month for further management. 04/29/2024: Weight 183 pounds, BMI 32.41. Seca scan completed today and interpreted with patient. She is down approximately 6 pounds from last visit. Prior authorization for Wegovy denied by insurance. Otherwise has been implementing lifestyle modifications including exercise. Reviewed goals of diet and hydration of 60 to 80 ounces daily. At this time we will trial Contrave 8-90 mg. Discussed proper use of the medication and potential side effect profile including but not limited to headache, dizziness, dry mouth, and GI upset. Advised that medication requires a prior authorization which can take 2 to 4 weeks. If medication is uncovered she will pay as much as $99 per month through [facility]. Patient understanding. She will follow-up in office in 4 weeks for further management. # Osteoporosis of forearm and femoral head/hip: Taking vitamin D/calcium. Finding in 2022 with plan to repeat in next 1 to 2 years. Not interested in medication for treatment of osteoporosis at this time. # Hypertension: BP 118/76. Continue amlodipine 5 mg once daily. No longer taking clonidine. Discussed red flag signs of hypertension clinic but not limited to headache, blurry vision, chest pain, difficulty breathing, dizziness, or weakness. Will continue to monitor. # Asthma: Currently well-controlled without maintenance inhalers. Continue albuterol sulfate as needed. # Bipolar disorder: History of 2 prior hospitalizations. Currently stable on current regimen followed by psychiatry through [facility]. # Insomnia: Continue trazodone and gabapentin. Medications managed by psychiatry. # Hyperlipidemia: Total cholesterol on 12/06/2023 with LDL 107. Reviewed importance of lifestyle to help lower cholesterol and prevent other comorbidities. Will repeat lipid panel in 6 months and consider statin if increased. Discussed importance of incorporating fish oil. # Anxiety: Stable at this time, managed with psychiatry through [facility]. Infrequently uses lorazepam for panic symptoms. Reports some improvement with the clonidine. # Migraines: Per chart review has had 2 ED visits due to severe headaches. Follows with Dr. Troy with neurology. Trialed sumatriptan however made her nauseous. Continue butalbital, APAP, and caffeine tablet. All questions have been answered to patient's satisfaction. Patient verbalized understanding of diagnosis and treatments explained. Advised to call sooner prior to next visit it any questions/concerns arise. Case discussed with collaborating physician Hudson Vela who reviewed the assessment and plan. Chart, medications, labs, vital signs reviewed. Dictation was accomplished with the use of [employer] voice recognition software, which is prone to medical misidentifications and grammatical errors. This are unintentional and the practitioner does try to identify and correct these, but some could still be present. Please do not hesitate to contact practitioner for clarification. 05/27/2024 Adult-onset obesity (ICD-10 - E66.9) Patient is here for weight management follow-up. We focused on significance of healthy lifestyle changes. We talked about need to track steps with goal between 6000-10,000 steps daily, focus on portion control, read food labels, get adequate sleep between 7 to 8 hours, get adequate rest to the body, meditate, frequent nutritious meals including vegetables and healthy choices of lean meats, fish, and elimination of refined carbohydrates. We also talked about mindfulness and mindful eating. Particular focus was on continuing to improve diet and increase physical activity as well as reducing alcohol consumption. Total time spent with 30 minutes with greater than 50% spent on counseling and coordinating care. 11/30/2023:Weight 184, BMI 32 Extensively educated on lifestyle modifications including high-protein foods, low carbohydrate snacks, healthy fats, sleep hygiene, stress reduction. Provided with educational documentation in regards to all of this. Discussed cortisol manager [place] for sleep. Options limited for medication secondary to Medicare. Discussed Contrave which patient would like to avoid because she does drink alcohol on occasion. Avoid phentermine due to age. Patient also has a history of insomnia/difficulty sleeping. Will obtain blood work for physical in 4 weeks. 01/03/2024: Weight 184, BMI 32.7. Patient's weight has plateaued since consultation last visit. She is still working on lifestyle. Hesitant to start GLP-1 secondary to patient's concern for hair loss. Is going to contact her health insurance to see if they cover medication such as Wegovy or Zepbound. Otherwise, discussed [id number] options but patient states that this is a challenge for her to afford. Continue to encourage that she is able to do this with lifestyle alone with consistency. 02/28/24: Weight 186, BMI 32. Patient is going to contact her health insurance to see if they cover medication such as Zepbound or Wegovy and with the [id number] cost looks like. Avoid Contrave due to other psychiatric medications.Avoid phentermine secondary to history of hypertension, Continue to encourage lifestyle, Body scan showing 2 pounds of increased fat, but also 2 pounds of increased muscle. 04/01/2024: Weight 189 pounds, BMI 33.48. Currently not on weight loss medication. She is not a good candidate for Contrave given concomitant psychiatric medications. Would avoid phentermine given history of hypertension. Discussed Wegovy and Zepbound and patient will contact insurance to understand which medication may be covered by plan. Reviewed goals of lifestyle including diet and exercise. Plan to follow-up in approximately 1 month for further management. 04/29/2024: Weight 183 pounds, BMI 32.41. Seca scan completed today and interpreted with patient. She is down approximately 6 pounds from last visit. Prior authorization for Wegovy denied by insurance. Otherwise has been implementing lifestyle modifications including exercise. Reviewed goals of diet and hydration of 60 to 80 ounces daily. At this time we will trial Contrave 8-90 mg. Discussed proper use of the medication and potential side effect profile including but not limited to headache, dizziness, dry mouth, and GI upset. Advised that medication requires a prior authorization which can take 2 to 4 weeks. If medication is uncovered she will pay as much as $99 per month through [email or web address]. Patient understanding. She will follow-up in office in 4 weeks for further management. 05/27/2024: Weight 183 pounds, BMI 32.41. Seca scan completed today and interpreted with the patient. Patient's weight has been stable since last visit. Is now going to retrial Contrave, tried a couple doses however had a headache. Reviewed goals of diet and exercise as well as hydration 60 to 80 ounces daily. She will follow-up in office in approximately 4 weeks at which time we will reevaluate progress. # Osteoporosis of forearm and femoral head/hip: Taking vitamin D/calcium. Finding in 2022 with plan to repeat in next 1 to 2 years. Not interested in medication for treatment of osteoporosis at this time. # Hypertension: BP 128/88. Continue amlodipine 5 mg once daily. No longer taking clonidine. Discussed red flag signs of hypertension clinic but not limited to headache, blurry vision, chest pain, difficulty breathing, dizziness, or weakness. Will continue to monitor. # Asthma: Currently well-controlled without maintenance inhalers. Continue albuterol sulfate as needed. # Bipolar disorder: History of 2 prior hospitalizations. Currently stable on current regimen followed by psychiatry through [facility]. # Insomnia: Continue trazodone and gabapentin. Medications managed by psychiatry. # Hyperlipidemia: Total cholesterol on 12/06/2023 with LDL 107. Reviewed importance of lifestyle to help lower cholesterol and prevent other comorbidities. Will repeat lipid panel in 6 months and consider statin if increased. Discussed importance of incorporating fish oil. # Anxiety: Stable at this time, managed with psychiatry through [facility]. Infrequently uses lorazepam for panic symptoms. Reports some improvement with the clonidine. # Migraines: Per chart review has had 2 ED visits due to severe headaches. Follows with Dr. Troy with neurology. Trialed sumatriptan however made her nauseous. Continue butalbital, APAP, and caffeine tablet. All questions have been answered to patient's satisfaction. Patient verbalized understanding of diagnosis and treatments explained. Advised to call sooner prior to next visit it any questions/concerns arise. Case discussed with collaborating physician Hudson Vela who reviewed the assessment and plan. Chart, medications, labs, vital signs reviewed. Dictation was accomplished with the use of [employer] voice recognition software, which is prone to medical misidentifications and grammatical errors. This are unintentional and the practitioner does try to identify and correct these, but some could still be present. Please do not hesitate to contact practitioner for clarification. 06/24/2024 BMI 31.0-31.9,adult (ICD-10 - Z68.31) Patient is here for weight management follow-up. We focused on significance of healthy lifestyle changes. We talked about need to track steps with goal between 6000-10,000 steps daily, focus on portion control, read food labels, get adequate sleep between 7 to 8 hours, get adequate rest to the body, meditate, frequent nutritious meals including vegetables and healthy choices of lean meats, fish, and elimination of refined carbohydrates. We also talked about mindfulness and mindful eating. Particular focus was on continuing to practice portion control and implement physical activity. Total time spent with 30 minutes with greater than 50% spent on counseling and coordinating care. 11/30/2023:Weight 184, BMI 32 Extensively educated on lifestyle modifications including high-protein foods, low carbohydrate snacks, healthy fats, sleep hygiene, stress reduction. Provided with educational documentation in regards to all of this. Discussed cortisol [place] for sleep. Options limited for medication secondary to Medicare. Discussed Contrave which patient would like to avoid because she does drink alcohol on occasion. Avoid phentermine due to age. Patient also has a history of insomnia/difficulty sleeping. Will obtain blood work for physical in 4 weeks. 01/03/2024: Weight 184, BMI 32.7. Patient's weight has plateaued since consultation last visit. She is still working on lifestyle. Hesitant to start GLP-1 secondary to patient's concern for hair loss. Is going to contact her health insurance to see if they cover medication such as Wegovy or Zepbound. Otherwise, discussed [id number] options but patient states that this is a challenge for her to afford. Continue to encourage that she is able to do this with lifestyle alone with consistency. 02/28/24: Weight 186, BMI 32. Patient is going to contact her health insurance to see if they cover medication such as Zepbound or Wegovy and with the [id number] cost looks like. Avoid Contrave due to other psychiatric medications.Avoid phentermine secondary to history of hypertension, Continue to encourage lifestyle, Body scan showing 2 pounds of increased fat, but also 2 pounds of increased muscle. 04/01/2024: Weight 189 pounds, BMI 33.48. Currently not on weight loss medication. She is not a good candidate for Contrave given concomitant psychiatric medications. Would avoid phentermine given history of hypertension. Discussed Wegovy and Zepbound and patient will contact insurance to understand which medication may be covered by plan. Reviewed goals of lifestyle including diet and exercise. Plan to follow-up in approximately 1 month for further management. 04/29/2024: Weight 183 pounds, BMI 32.41. Seca scan completed today and interpreted with patient. She is down approximately 6 pounds from last visit. Prior authorization for Wegovy denied by insurance. Otherwise has been implementing lifestyle modifications including exercise. Reviewed goals of diet and hydration of 60 to 80 ounces daily. At this time we will trial Contrave 8-90 mg. Discussed proper use of the medication and potential side effect profile including but not limited to headache, dizziness, dry mouth, and GI upset. Advised that medication requires a prior authorization which can take 2 to 4 weeks. If medication is uncovered she will pay as much as $99 per month through [email or web address]. Patient understanding. She will follow-up in office in 4 weeks for further management. 05/27/2024: Weight 183 pounds, BMI 32.41. Seca scan completed today and interpreted with the patient. Patient's weight has been stable since last visit. Is now going to retrial Contrave, tried a couple doses however had a headache. Reviewed goals of diet and exercise as well as hydration 60 to 80 ounces daily. She will follow-up in office in approximately 4 weeks at which time we will reevaluate progress. 06/24/2024: Weight 177 pounds, BMI 31.35. SECA scan completed today and interpreted with the patient. Patient is down about 6 pounds from last visit. She is down 4 pounds of fat mass and has increased amounts of muscle mass. Waist circumference has decreased by 2 inches. Patient is no longer on Contrave due to adverse effects of dizziness and sensation of off balance. At this time not on medication. Insurance not covering GLP-1 medications. We discussed use of compounded medications including compounded tirzepatide and semaglutide. Patient will have discussion with her and get back to our office regarding plan of action. Otherwise we reviewed goals of diet and exercise as well as hydration 60 to 80 ounces daily. Plan is to follow-up for weight management in 4 weeks for further assessment. # Osteoporosis of forearm and femoral head/hip: Taking vitamin D/calcium. Finding in 2022 with plan to repeat in next 1 to 2 years. Not interested in medication for treatment of osteoporosis at this time. # Hypertension: BP (). Continue amlodipine 5 mg once daily. No longer taking clonidine. Discussed red flag signs of hypertension clinic but not limited to headache, blurry vision, chest pain, difficulty breathing, dizziness, or weakness. Will continue to monitor. # Asthma: Currently well-controlled without maintenance inhalers. Continue albuterol sulfate as needed. # Bipolar disorder: History of 2 prior hospitalizations. Currently stable on current regimen followed by psychiatry through [facility]. # Insomnia: Continue trazodone and gabapentin. Medications managed by psychiatry. # Hyperlipidemia: Total cholesterol on 12/06/2023 with LDL 107. Reviewed importance of lifestyle to help lower cholesterol and prevent other comorbidities. Will repeat lipid panel at next f/u and consider statin if increased. Discussed importance of incorporating fish oil. # Anxiety: Stable at this time, managed with psychiatry through [facility]. Infrequently uses lorazepam for panic symptoms. Reports some improvement with the clonidine. # Migraines: Per chart review has had 2 ED visits due to severe headaches. Follows with Dr. Troy with neurology. Trialed sumatriptan however made her nauseous. Continue butalbital, APAP, and caffeine tablet. # Preventative medicine: Patient recently updated her Shingrix vaccine. Had first dose in series however this was a few years ago and now has to restart series. Will complete second dose in approximately 2 to 6 months. Also recently updated COVID booster. All questions have been answered to patient's satisfaction. Patient verbalized understanding of diagnosis and treatments explained. Advised to call sooner prior to next visit it any questions/concerns arise. Case discussed with collaborating physician Hudson Vela who reviewed the assessment and plan. Chart, medications, labs, vital signs reviewed. Dictation was accomplished with the use of [employer] voice recognition software, which is prone to medical misidentifications and grammatical errors. This are unintentional and the practitioner does try to identify and correct these, but some could still be present. Please do not hesitate to contact practitioner for clarification. 06/24/2024 Adult-onset obesity (ICD-10 - E66.9) Patient is here for weight management follow-up. We focused on significance of healthy lifestyle changes. We talked about need to track steps with goal between 6000-10,000 steps daily, focus on portion control, read food labels, get adequate sleep between 7 to 8 hours, get adequate rest to the body, meditate, frequent nutritious meals including vegetables and healthy choices of lean meats, fish, and elimination of refined carbohydrates. We also talked about mindfulness and mindful eating. Particular focus was on continuing to practice portion control and implement physical activity. Total time spent with 30 minutes with greater than 50% spent on counseling and coordinating care. 11/30/2023:Weight 184, BMI 32 Extensively educated on lifestyle modifications including high-protein foods, low carbohydrate snacks, healthy fats, sleep hygiene, stress reduction. Provided with educational documentation in regards to all of this. Discussed cortisol manager [place] for sleep. Options limited for medication secondary to Medicare. Discussed Contrave which patient would like to avoid because she does drink alcohol on occasion. Avoid phentermine due to age. Patient also has a history of insomnia/difficulty sleeping. Will obtain blood work for physical in 4 weeks. 01/03/2024: Weight 184, BMI 32.7. Patient's weight has plateaued since consultation last visit. She is still working on lifestyle. Hesitant to start GLP-1 secondary to patient's concern for hair loss. Is going to contact her health insurance to see if they cover medication such as Wegovy or Zepbound. Otherwise, discussed [id number] options but patient states that this is a challenge for her to afford. Continue to encourage that she is able to do this with lifestyle alone with consistency. 02/28/24: Weight 186, BMI 32. Patient is going to contact her health insurance to see if they cover medication such as Zepbound or Wegovy and with the [id number] cost looks like. Avoid Contrave due to other psychiatric medications.Avoid phentermine secondary to history of hypertension, Continue to encourage lifestyle, Body scan showing 2 pounds of increased fat, but also 2 pounds of increased muscle. 04/01/2024: Weight 189 pounds, BMI 33.48. Currently not on weight loss medication. She is not a good candidate for Contrave given concomitant psychiatric medications. Would avoid phentermine given history of hypertension. Discussed Wegovy and Zepbound and patient will contact insurance to understand which medication may be covered by plan. Reviewed goals of lifestyle including diet and exercise. Plan to follow-up in approximately 1 month for further management. 04/29/2024: Weight 183 pounds, BMI 32.41. Seca scan completed today and interpreted with patient. She is down approximately 6 pounds from last visit. Prior authorization for Wegovy denied by insurance. Otherwise has been implementing lifestyle modifications including exercise. Reviewed goals of diet and hydration of 60 to 80 ounces daily. At this time we will trial Contrave 8-90 mg. Discussed proper use of the medication and potential side effect profile including but not limited to headache, dizziness, dry mouth, and GI upset. Advised that medication requires a prior authorization which can take 2 to 4 weeks. If medication is uncovered she will pay as much as $99 per month through [email or web address]. Patient understanding. She will follow-up in office in 4 weeks for further management. 05/27/2024: Weight 183 pounds, BMI 32.41. Seca scan completed today and interpreted with the patient. Patient's weight has been stable since last visit. Is now going to retrial Contrave, tried a couple doses however had a headache. Reviewed goals of diet and exercise as well as hydration 60 to 80 ounces daily. She will follow-up in office in approximately 4 weeks at which time we will reevaluate progress. 06/24/2024: Weight 177 pounds, BMI 31.35. SECA scan completed today and interpreted with the patient. Patient is down about 6 pounds from last visit. She is down 4 pounds of fat mass and has increased amounts of muscle mass. Waist circumference has decreased by 2 inches. Patient is no longer on Contrave due to adverse effects of dizziness and sensation of off balance. At this time not on medication. Insurance not covering GLP-1 medications. We discussed use of compounded medications including compounded tirzepatide and semaglutide. Patient will have discussion with her and get back to our office regarding plan of action. Otherwise we reviewed goals of diet and exercise as well as hydration 60 to 80 ounces daily. Plan is to follow-up for weight management in 4 weeks for further assessment. # Osteoporosis of forearm and femoral head/hip: Taking vitamin D/calcium. Finding in 2022 with plan to repeat in next 1 to 2 years. Not interested in medication for treatment of osteoporosis at this time. # Hypertension: BP (). Continue amlodipine 5 mg once daily. No longer taking clonidine. Discussed red flag signs of hypertension clinic but not limited to headache, blurry vision, chest pain, difficulty breathing, dizziness, or weakness. Will continue to monitor. # Asthma: Currently well-controlled without maintenance inhalers. Continue albuterol sulfate as needed. # Bipolar disorder: History of 2 prior hospitalizations. Currently stable on current regimen followed by psychiatry through [facility]. # Insomnia: Continue trazodone and gabapentin. Medications managed by psychiatry. # Hyperlipidemia: Total cholesterol on 12/06/2023 with LDL 107. Reviewed importance of lifestyle to help lower cholesterol and prevent other comorbidities. Will repeat lipid panel at next f/u and consider statin if increased. Discussed importance of incorporating fish oil. # Anxiety: Stable at this time, managed with psychiatry through [facility]. Infrequently uses lorazepam for panic symptoms. Reports some improvement with the clonidine. # Migraines: Per chart review has had 2 ED visits due to severe headaches. Follows with Dr. Troy with neurology. Trialed sumatriptan however made her nauseous. Continue butalbital, APAP, and caffeine tablet. # Preventative medicine: Patient recently updated her Shingrix vaccine. Had first dose in series however this was a few years ago and now has to restart series. Will complete second dose in approximately 2 to 6 months. Also recently updated COVID booster. All questions have been answered to patient's satisfaction. Patient verbalized understanding of diagnosis and treatments explained. Advised to call sooner prior to next visit it any questions/concerns arise. Case discussed with collaborating physician Hudson Vela who reviewed the assessment and plan. Chart, medications, labs, vital signs reviewed. Dictation was accomplished with the use of [employer] voice recognition software, which is prone to medical misidentifications and grammatical errors. This are unintentional and the practitioner does try to identify and correct these, but some could still be present. Please do not hesitate to contact practitioner for clarification. 06/26/2024 Mixed hyperlipidemia (ICD-10 - E78.2) Wendi is a 64-year-old male with a of multiple medical conditions who presents today for follow-up today of hyperlipidemia. Cardiopulmonary exam unremarkable. Patient will follow-up in office for her annual exam in December with updated labs. # Hyperlipidemia: Updated lipid panel on with total cholesterol 229, HDL 91, triglycerides 86, LDL 119. LDL and total cholesterol have slightly increased from labs in November. Low ASCVD risk less than 10%, no indication for statin at this time. Discussed other measures of lowering cholesterol including incorporating fiber in diet, regular vitamin D intake, use of turmeric supplements, fish oil which she currently takes, as well as maintaining regular physical activity. Patient understanding and will reevaluate lipid panel at her next visit in December. # Hypertension: BP 122/80. Continue amlodipine 5 mg once daily. No longer taking clonidine. Discussed red flag signs of hypertension clinic but not limited to headache, blurry vision, chest pain, difficulty breathing, dizziness, or weakness. Will continue to monitor. # Asthma: Currently well-controlled without maintenance inhalers. Continue albuterol sulfate as needed. # Bipolar disorder: History of 2 prior hospitalizations. Currently stable on current regimen followed by psychiatry through [facility]. # Insomnia: Continue trazodone and gabapentin. Medications managed by psychiatry. # Anxiety: Stable at this time, managed with psychiatry through [facility]. Infrequently uses lorazepam for panic symptoms. Reports some improvement with the clonidine. # Migraines: Per chart review has had 2 ED visits due to severe headaches. Follows with Dr. Troy with neurology. Trialed sumatriptan however made her nauseous. Continue butalbital, APAP, and caffeine tablet. # Obesity: Weight 177 pounds, BMI 31.35. Patient established in weight management program, next follow-up on 07/25/2024. Will continue to monitor. All questions have been answered to patient's satisfaction. Patient verbalized understanding of diagnosis and treatments explained. Advised to call sooner prior to next visit it any questions/concerns arise. Case discussed with collaborating physician Hudson Vela who reviewed the assessment and plan. Chart, medications, labs, vital signs reviewed. Dictation was accomplished with the use of [employer] voice recognition software, which is prone to medical misidentifications and grammatical errors. This are unintentional and the practitioner does try to identify and correct these, but some could still be present. Please do not hesitate to contact practitioner for clarification. 06/26/2024 Primary hypertension (ICD-10 - I10) Wendi is a 64-year-old male with a of multiple medical conditions who presents today for follow-up today of hyperlipidemia. Cardiopulmonary exam unremarkable. Patient will follow-up in office for her annual exam in December with updated labs. # Hyperlipidemia: Updated lipid panel on with total cholesterol 229, HDL 91, triglycerides 86, LDL 119. LDL and total cholesterol have slightly increased from labs in November. Low ASCVD risk less than 10%, no indication for statin at this time. Discussed other measures of lowering cholesterol including incorporating fiber in diet, regular vitamin D intake, use of turmeric supplements, fish oil which she currently takes, as well as maintaining regular physical activity. Patient understanding and will reevaluate lipid panel at her next visit in December. # Hypertension: BP 122/80. Continue amlodipine 5 mg once daily. No longer taking clonidine. Discussed red flag signs of hypertension clinic but not limited to headache, blurry vision, chest pain, difficulty breathing, dizziness, or weakness. Will continue to monitor. # Asthma: Currently well-controlled without maintenance inhalers. Continue albuterol sulfate as needed. # Bipolar disorder: History of 2 prior hospitalizations. Currently stable on current regimen followed by psychiatry through [facility]. # Insomnia: Continue trazodone and gabapentin. Medications managed by psychiatry. # Anxiety: Stable at this time, managed with psychiatry through [facility]. Infrequently uses lorazepam for panic symptoms. Reports some improvement with the clonidine. # Migraines: Per chart review has had 2 ED visits due to severe headaches. Follows with Dr. Troy with neurology. Trialed sumatriptan however made her nauseous. Continue butalbital, APAP, and caffeine tablet. # Obesity: Weight 177 pounds, BMI 31.35. Patient established in weight management program, next follow-up on 07/25/2024. Will continue to monitor. All questions have been answered to patient's satisfaction. Patient verbalized understanding of diagnosis and treatments explained. Advised to call sooner prior to next visit it any questions/concerns arise. Case discussed with collaborating physician Hudson Vela who reviewed the assessment and plan. Chart, medications, labs, vital signs reviewed. Dictation was accomplished with the use of [employer] voice recognition software, which is prone to medical misidentifications and grammatical errors. This are unintentional and the practitioner does try to identify and correct these, but some could still be present. Please do not hesitate to contact practitioner for clarification. 11/19/2024 Left wrist pain (ICD-10 - M25.532) #Left wrist swelling/discomfort. Transient left wrist swelling last week which has since resolved. Likely overuse from new exercises she has been doing at home. Normal exam in the office today. Reassurance provided. Follow-up with any recurrent symptoms. #Hypertension blood pressure at goal and well-controlled on current regimen of amlodipine 5 mg daily. Follow-up with PCP as scheduled for CPE/labs. Case discussed with collaborating physician Linda Vela who reviewed the assessment and plan. Chart, medications, labs, vital signs reviewed. Dictation was accomplished with the use of [employer] voice recognition software, prone to medical misidentifications and grammatical errors. This is unintentional and the practitioner does try to identify and correct these, but some could still be present. Please do not hesitate to contact practitioner for clarification. All questions answered to patients satisfaction. Patient verbalized understanding of diagnosis and treatments explained. To call sooner prior to next visit it any questions/concerns arise. 12/07/2024 Encounter for screening for osteoporosis (ICD-10 - Z13.820) 01/07/2025 Adult general medical exam (ICD-10 - Z00.00) Patient is here for a Medicare wellness visit. Complete paperwork was reviewed and updated and has been filed and scanned. Depression screen completed. Alcohol AUDIT SCREEN completed. Obesity screen completed. Cardiovascular risk stratification screen completed. # Hyperlipidemia: Lipid panel updated on 01/03/2025 with values of total cholesterol 220, triglycerides 55, LDL 103, HDL 106. ASCVD risk of 5.4%, moderate intensity statin is recommended. Patient centered discussion had today regarding ongoing treatment for hyperlipidemia, at this time patient states that she would prefer to not go on statin and continue to prioritize lifestyle. Discussed other measures of lowering cholesterol including incorporating fiber in diet, regular vitamin D intake, use of turmeric supplements, fish oil which she currently takes, as well as maintaining regular physical activity. # Hypertension: BP stable in office. Continue amlodipine 5 mg once daily. No longer taking clonidine. Discussed red flag signs of hypertension clinic but not limited to headache, blurry vision, chest pain, difficulty breathing, dizziness, or weakness. Will continue to monitor. # Asthma: Currently well-controlled without maintenance inhalers. Continue albuterol sulfate as needed. # Bipolar II disorder: Last televisit with psychiatry on 05/13/2024. Per specialist note review, mood symptoms are well-managed. She reports some sleep issues but is satisfied with trazodone and will work on sleep hygiene. Psychiatric evaluation is without wilfredo, psychosis, delusions, or OCD behaviors. Denies SI or HI. No previous history of suicidal attempts. Plan with specialist is to continue Ativan 0.5 mg daily as needed for anxiety, trazodone 225 to 300 mg nightly for sleep as needed, and to decrease gabapentin 800 mg from 3 times daily to 2 times daily. # Insomnia: Continue trazodone 225 to 300 mg once nightly as needed for sleep. Continue to practice good sleep hygiene. # Anxiety: Stable at this time, managed with psychiatry through [facility]. Infrequently uses lorazepam for panic symptoms. Reports some improvement with the clonidine. # Migraines: Per chart review has had 2 ED visits due to severe headaches. Follows with Dr. Troy with neurology. Trialed sumatriptan however made her nauseous. Continue butalbital, APAP, and caffeine tablet. # Obesity: Weight 186 pounds, BMI 32.94. Discussed lifestyle modifications to treat underlying obesity. Patient has been improving her diet. She is down 4 pounds from her last visit in October. Continue to monitor. # Preventative medicine: Patient up-to-date on all vaccinations. Mammogram updated November 2024. Updated bone mineral density scan is scheduled. # Advance care planning: Discussed and provided forms today for healthcare proxy and MOLST. Cognition assessed and within reasonable limits Fall risk assessed. Discussed healthcare proxy. Discussed [place] order for life sustaining treatment, end-of-life issues, intubation and resuscitation dialysis artificial nutrition and hydration is appropriate. We discussed [place] order for life sustaining treatment and healthcare proxy. We discussed need for resuscitation, intubation, ventilation, need for dialysis, short-term versus long-term, nutrition, IV nutrition and hydration. Total time spent was 45 minutes with greater than 50% spent on counseling and coordinating care All questions have been answered to patient's satisfaction. Patient verbalized understanding of diagnosis and treatments explained. Advised to call sooner prior to next visit it any questions/concerns arise. Case discussed with collaborating physician Hudson Vela who reviewed the assessment and plan. Chart, medications, labs, vital signs reviewed. Dictation was accomplished with the use of [employer] voice recognition software, which is prone to medical misidentifications and grammatical errors. This are unintentional and the practitioner does try to identify and correct these, but some could still be present. Please do not hesitate to contact practitioner for clarification. 01/07/2025 Depression screen (ICD-10 - Z13.31) Patient is here for a Medicare wellness visit. Complete paperwork was reviewed and updated and has been filed and scanned. Depression screen completed. Alcohol AUDIT SCREEN completed. Obesity screen completed. Cardiovascular risk stratification screen completed. # Hyperlipidemia: Lipid panel updated on 01/03/2025 with values of total cholesterol 220, triglycerides 55, LDL 103, HDL 106. ASCVD risk of 5.4%, moderate intensity statin is recommended. Patient centered discussion had today regarding ongoing treatment for hyperlipidemia, at this time patient states that she would prefer to not go on statin and continue to prioritize lifestyle. Discussed other measures of lowering cholesterol including incorporating fiber in diet, regular vitamin D intake, use of turmeric supplements, fish oil which she currently takes, as well as maintaining regular physical activity. # Hypertension: BP stable in office. Continue amlodipine 5 mg once daily. No longer taking clonidine. Discussed red flag signs of hypertension clinic but not limited to headache, blurry vision, chest pain, difficulty breathing, dizziness, or weakness. Will continue to monitor. # Asthma: Currently well-controlled without maintenance inhalers. Continue albuterol sulfate as needed. # Bipolar II disorder: Last televisit with psychiatry on 05/13/2024. Per specialist note review, mood symptoms are well-managed. She reports some sleep issues but is satisfied with trazodone and will work on sleep hygiene. Psychiatric evaluation is without wilfredo, psychosis, delusions, or OCD behaviors. Denies SI or HI. No previous history of suicidal attempts. Plan with specialist is to continue Ativan 0.5 mg daily as needed for anxiety, trazodone 225 to 300 mg nightly for sleep as needed, and to decrease gabapentin 800 mg from 3 times daily to 2 times daily. # Insomnia: Continue trazodone 225 to 300 mg once nightly as needed for sleep. Continue to practice good sleep hygiene. # Anxiety: Stable at this time, managed with psychiatry through [facility]. Infrequently uses lorazepam for panic symptoms. Reports some improvement with the clonidine. # Migraines: Per chart review has had 2 ED visits due to severe headaches. Follows with Dr. Troy with neurology. Trialed sumatriptan however made her nauseous. Continue butalbital, APAP, and caffeine tablet. # Obesity: Weight 186 pounds, BMI 32.94. Discussed lifestyle modifications to treat underlying obesity. Patient has been improving her diet. She is down 4 pounds from her last visit in October. Continue to monitor. # Preventative medicine: Patient up-to-date on all vaccinations. Mammogram updated November 2024. Updated bone mineral density scan is scheduled. # Advance care planning: Discussed and provided forms today for healthcare proxy and MOLST. Cognition assessed and within reasonable limits Fall risk assessed. Discussed healthcare proxy. Discussed [place] order for life sustaining treatment, end-of-life issues, intubation and resuscitation dialysis artificial nutrition and hydration is appropriate. We discussed [place] order for life sustaining treatment and healthcare proxy. We discussed need for resuscitation, intubation, ventilation, need for dialysis, short-term versus long-term, nutrition, IV nutrition and hydration. Total time spent was 45 minutes with greater than 50% spent on counseling and coordinating care All questions have been answered to patient's satisfaction. Patient verbalized understanding of diagnosis and treatments explained. Advised to call sooner prior to next visit it any questions/concerns arise. Case discussed with collaborating physician Hudson Vela who reviewed the assessment and plan. Chart, medications, labs, vital signs reviewed. Dictation was accomplished with the use of [employer] voice recognition software, which is prone to medical misidentifications and grammatical errors. This are unintentional and the practitioner does try to identify and correct these, but some could still be present. Please do not hesitate to contact practitioner for clarification. 01/07/2025 Encounter for screening for other disorder (ICD-10 - Z13.89) Patient is here for a Medicare wellness visit. Complete paperwork was reviewed and updated and has been filed and scanned. Depression screen completed. Alcohol AUDIT SCREEN completed. Obesity screen completed. Cardiovascular risk stratification screen completed. # Hyperlipidemia: Lipid panel updated on 01/03/2025 with values of total cholesterol 220, triglycerides 55, LDL 103, HDL 106. ASCVD risk of 5.4%, moderate intensity statin is recommended. Patient centered discussion had today regarding ongoing treatment for hyperlipidemia, at this time patient states that she would prefer to not go on statin and continue to prioritize lifestyle. Discussed other measures of lowering cholesterol including incorporating fiber in diet, regular vitamin D intake, use of turmeric supplements, fish oil which she currently takes, as well as maintaining regular physical activity. # Hypertension: BP stable in office. Continue amlodipine 5 mg once daily. No longer taking clonidine. Discussed red flag signs of hypertension clinic but not limited to headache, blurry vision, chest pain, difficulty breathing, dizziness, or weakness. Will continue to monitor. # Asthma: Currently well-controlled without maintenance inhalers. Continue albuterol sulfate as needed. # Bipolar II disorder: Last televisit with psychiatry on 05/13/2024. Per specialist note review, mood symptoms are well-managed. She reports some sleep issues but is satisfied with trazodone and will work on sleep hygiene. Psychiatric evaluation is without wilfredo, psychosis, delusions, or OCD behaviors. Denies SI or HI. No previous history of suicidal attempts. Plan with specialist is to continue Ativan 0.5 mg daily as needed for anxiety, trazodone 225 to 300 mg nightly for sleep as needed, and to decrease gabapentin 800 mg from 3 times daily to 2 times daily. # Insomnia: Continue trazodone 225 to 300 mg once nightly as needed for sleep. Continue to practice good sleep hygiene. # Anxiety: Stable at this time, managed with psychiatry through [facility]. Infrequently uses lorazepam for panic symptoms. Reports some improvement with the clonidine. # Migraines: Per chart review has had 2 ED visits due to severe headaches. Follows with Dr. Troy with neurology. Trialed sumatriptan however made her nauseous. Continue butalbital, APAP, and caffeine tablet. # Obesity: Weight 186 pounds, BMI 32.94. Discussed lifestyle modifications to treat underlying obesity. Patient has been improving her diet. She is down 4 pounds from her last visit in October. Continue to monitor. # Preventative medicine: Patient up-to-date on all vaccinations. Mammogram updated November 2024. Updated bone mineral density scan is scheduled. # Advance care planning: Discussed and provided forms today for healthcare proxy and MOLST. Cognition assessed and within reasonable limits Fall risk assessed. Discussed healthcare proxy. Discussed [place] order for life sustaining treatment, end-of-life issues, intubation and resuscitation dialysis artificial nutrition and hydration is appropriate. We discussed [place] order for life sustaining treatment and healthcare proxy. We discussed need for resuscitation, intubation, ventilation, need for dialysis, short-term versus long-term, nutrition, IV nutrition and hydration. Total time spent was 45 minutes with greater than 50% spent on counseling and coordinating care All questions have been answered to patient's satisfaction. Patient verbalized understanding of diagnosis and treatments explained. Advised to call sooner prior to next visit it any questions/concerns arise. Case discussed with collaborating physician Hudson Vela who reviewed the assessment and plan. Chart, medications, labs, vital signs reviewed. Dictation was accomplished with the use of [employer] voice recognition software, which is prone to medical misidentifications and grammatical errors. This are unintentional and the practitioner does try to identify and correct these, but some could still be present. Please do not hesitate to contact practitioner for clarification. 06/26/2024 Mild intermittent asthma without complication (ICD-10 - J45.20) Wendi is a 64-year-old male with a of multiple medical conditions who presents today for follow-up today of hyperlipidemia. Cardiopulmonary exam unremarkable. Patient will follow-up in office for her annual exam in December with updated labs. # Hyperlipidemia: Updated lipid panel on with total cholesterol 229, HDL 91, triglycerides 86, LDL 119. LDL and total cholesterol have slightly increased from labs in November. Low ASCVD risk less than 10%, no indication for statin at this time. Discussed other measures of lowering cholesterol including incorporating fiber in diet, regular vitamin D intake, use of turmeric supplements, fish oil which she currently takes, as well as maintaining regular physical activity. Patient understanding and will reevaluate lipid panel at her next visit in December. # Hypertension: BP 122/80. Continue amlodipine 5 mg once daily. No longer taking clonidine. Discussed red flag signs of hypertension clinic but not limited to headache, blurry vision, chest pain, difficulty breathing, dizziness, or weakness. Will continue to monitor. # Asthma: Currently well-controlled without maintenance inhalers. Continue albuterol sulfate as needed. # Bipolar disorder: History of 2 prior hospitalizations. Currently stable on current regimen followed by psychiatry through [facility]. # Insomnia: Continue trazodone and gabapentin. Medications managed by psychiatry. # Anxiety: Stable at this time, managed with psychiatry through [facility]. Infrequently uses lorazepam for panic symptoms. Reports some improvement with the clonidine. # Migraines: Per chart review has had 2 ED visits due to severe headaches. Follows with Dr. Troy with neurology. Trialed sumatriptan however made her nauseous. Continue butalbital, APAP, and caffeine tablet. # Obesity: Weight 177 pounds, BMI 31.35. Patient established in weight management program, next follow-up on 07/25/2024. Will continue to monitor. All questions have been answered to patient's satisfaction. Patient verbalized understanding of diagnosis and treatments explained. Advised to call sooner prior to next visit it any questions/concerns arise. Case discussed with collaborating physician Hudson Vela who reviewed the assessment and plan. Chart, medications, labs, vital signs reviewed. Dictation was accomplished with the use of [employer] voice recognition software, which is prone to medical misidentifications and grammatical errors. This are unintentional and the practitioner does try to identify and correct these, but some could still be present. Please do not hesitate to contact practitioner for clarification. 11/19/2024 Primary hypertension (ICD-10 - I10) #Left wrist swelling/discomfort. Transient left wrist swelling last week which has since resolved. Likely overuse from new exercises she has been doing at home. Normal exam in the office today. Reassurance provided. Follow-up with any recurrent symptoms. #Hypertension blood pressure at goal and well-controlled on current regimen of amlodipine 5 mg daily. Follow-up with PCP as scheduled for CPE/labs. Case discussed with collaborating physician Linda Vela who reviewed the assessment and plan. Chart, medications, labs, vital signs reviewed. Dictation was accomplished with the use of [employer] voice recognition software, prone to medical misidentifications and grammatical errors. This is unintentional and the practitioner does try to identify and correct these, but some could still be present. Please do not hesitate to contact practitioner for clarification. All questions answered to patients satisfaction. Patient verbalized understanding of diagnosis and treatments explained. To call sooner prior to next visit it any questions/concerns arise. 06/24/2024 Primary hypertension (ICD-10 - I10) Patient is here for weight management follow-up. We focused on significance of healthy lifestyle changes. We talked about need to track steps with goal between 6000-10,000 steps daily, focus on portion control, read food labels, get adequate sleep between 7 to 8 hours, get adequate rest to the body, meditate, frequent nutritious meals including vegetables and healthy choices of lean meats, fish, and elimination of refined carbohydrates. We also talked about mindfulness and mindful eating. Particular focus was on continuing to practice portion control and implement physical activity. Total time spent with 30 minutes with greater than 50% spent on counseling and coordinating care. 11/30/2023:Weight 184, BMI 32 Extensively educated on lifestyle modifications including high-protein foods, low carbohydrate snacks, healthy fats, sleep hygiene, stress reduction. Provided with educational documentation in regards to all of this. Discussed cortisol manager [place] for sleep. Options limited for medication secondary to Medicare. Discussed Contrave which patient would like to avoid because she does drink alcohol on occasion. Avoid phentermine due to age. Patient also has a history of insomnia/difficulty sleeping. Will obtain blood work for physical in 4 weeks. 01/03/2024: Weight 184, BMI 32.7. Patient's weight has plateaued since consultation last visit. She is still working on lifestyle. Hesitant to start GLP-1 secondary to patient's concern for hair loss. Is going to contact her health insurance to see if they cover medication such as Wegovy or Zepbound. Otherwise, discussed [id number] options but patient states that this is a challenge for her to afford. Continue to encourage that she is able to do this with lifestyle alone with consistency. 02/28/24: Weight 186, BMI 32. Patient is going to contact her health insurance to see if they cover medication such as Zepbound or Wegovy and with the [id number] cost looks like. Avoid Contrave due to other psychiatric medications.Avoid phentermine secondary to history of hypertension, Continue to encourage lifestyle, Body scan showing 2 pounds of increased fat, but also 2 pounds of increased muscle. 04/01/2024: Weight 189 pounds, BMI 33.48. Currently not on weight loss medication. She is not a good candidate for Contrave given concomitant psychiatric medications. Would avoid phentermine given history of hypertension. Discussed Wegovy and Zepbound and patient will contact insurance to understand which medication may be covered by plan. Reviewed goals of lifestyle including diet and exercise. Plan to follow-up in approximately 1 month for further management. 04/29/2024: Weight 183 pounds, BMI 32.41. Seca scan completed today and interpreted with patient. She is down approximately 6 pounds from last visit. Prior authorization for Wegovy denied by insurance. Otherwise has been implementing lifestyle modifications including exercise. Reviewed goals of diet and hydration of 60 to 80 ounces daily. At this time we will trial Contrave 8-90 mg. Discussed proper use of the medication and potential side effect profile including but not limited to headache, dizziness, dry mouth, and GI upset. Advised that medication requires a prior authorization which can take 2 to 4 weeks. If medication is uncovered she will pay as much as $99 per month through [email or web address]. Patient understanding. She will follow-up in office in 4 weeks for further management. 05/27/2024: Weight 183 pounds, BMI 32.41. Seca scan completed today and interpreted with the patient. Patient's weight has been stable since last visit. Is now going to retrial Contrave, tried a couple doses however had a headache. Reviewed goals of diet and exercise as well as hydration 60 to 80 ounces daily. She will follow-up in office in approximately 4 weeks at which time we will reevaluate progress. 06/24/2024: Weight 177 pounds, BMI 31.35. SECA scan completed today and interpreted with the patient. Patient is down about 6 pounds from last visit. She is down 4 pounds of fat mass and has increased amounts of muscle mass. Waist circumference has decreased by 2 inches. Patient is no longer on Contrave due to adverse effects of dizziness and sensation of off balance. At this time not on medication. Insurance not covering GLP-1 medications. We discussed use of compounded medications including compounded tirzepatide and semaglutide. Patient will have discussion with her and get back to our office regarding plan of action. Otherwise we reviewed goals of diet and exercise as well as hydration 60 to 80 ounces daily. Plan is to follow-up for weight management in 4 weeks for further assessment. # Osteoporosis of forearm and femoral head/hip: Taking vitamin D/calcium. Finding in 2022 with plan to repeat in next 1 to 2 years. Not interested in medication for treatment of osteoporosis at this time. # Hypertension: BP (). Continue amlodipine 5 mg once daily. No longer taking clonidine. Discussed red flag signs of hypertension clinic but not limited to headache, blurry vision, chest pain, difficulty breathing, dizziness, or weakness. Will continue to monitor. # Asthma: Currently well-controlled without maintenance inhalers. Continue albuterol sulfate as needed. # Bipolar disorder: History of 2 prior hospitalizations. Currently stable on current regimen followed by psychiatry through [facility]. # Insomnia: Continue trazodone and gabapentin. Medications managed by psychiatry. # Hyperlipidemia: Total cholesterol on 12/06/2023 with LDL 107. Reviewed importance of lifestyle to help lower cholesterol and prevent other comorbidities. Will repeat lipid panel at next f/u and consider statin if increased. Discussed importance of incorporating fish oil. # Anxiety: Stable at this time, managed with psychiatry through [facility]. Infrequently uses lorazepam for panic symptoms. Reports some improvement with the clonidine. # Migraines: Per chart review has had 2 ED visits due to severe headaches. Follows with Dr. Troy with neurology. Trialed sumatriptan however made her nauseous. Continue butalbital, APAP, and caffeine tablet. # Preventative medicine: Patient recently updated her Shingrix vaccine. Had first dose in series however this was a few years ago and now has to restart series. Will complete second dose in approximately 2 to 6 months. Also recently updated COVID booster. All questions have been answered to patient's satisfaction. Patient verbalized understanding of diagnosis and treatments explained. Advised to call sooner prior to next visit it any questions/concerns arise. Case discussed with collaborating physician Hudson Vela who reviewed the assessment and plan. Chart, medications, labs, vital signs reviewed. Dictation was accomplished with the use of [employer] voice recognition software, which is prone to medical misidentifications and grammatical errors. This are unintentional and the practitioner does try to identify and correct these, but some could still be present. Please do not hesitate to contact practitioner for clarification. 04/29/2024 Primary hypertension (ICD-10 - I10) Patient is here for weight management follow-up. We focused on significance of healthy lifestyle changes. We talked about need to track steps with goal between 6000-10,000 steps daily, focus on portion control, read food labels, get adequate sleep between 7 to 8 hours, get adequate rest to the body, meditate, frequent nutritious meals including vegetables and healthy choices of lean meats, fish, and elimination of refined carbohydrates. We also talked about mindfulness and mindful eating. Particular focus was on continuing to improve diet and increase physical activity as well as reducing alcohol consumption. Total time spent with 30 minutes with greater than 50% spent on counseling and coordinating care. 11/30/2023:Weight 184, BMI 32 Extensively educated on lifestyle modifications including high-protein foods, low carbohydrate snacks, healthy fats, sleep hygiene, stress reduction. Provided with educational documentation in regards to all of this. Discussed cortisol [place] for sleep. Options limited for medication secondary to Medicare. Discussed Contrave which patient would like to avoid because she does drink alcohol on occasion. Avoid phentermine due to age. Patient also has a history of insomnia/difficulty sleeping. Will obtain blood work for physical in 4 weeks. 01/03/2024: Weight 184, BMI 32.7. Patient's weight has plateaued since consultation last visit. She is still working on lifestyle. Hesitant to start GLP-1 secondary to patient's concern for hair loss. Is going to contact her health insurance to see if they cover medication such as Wegovy or Zepbound. Otherwise, discussed [id number] options but patient states that this is a challenge for her to afford. Continue to encourage that she is able to do this with lifestyle alone with consistency. 02/28/24: Weight 186, BMI 32. Patient is going to contact her health insurance to see if they cover medication such as Zepbound or Wegovy and with the [id number] cost looks like. Avoid Contrave due to other psychiatric medications.Avoid phentermine secondary to history of hypertension, Continue to encourage lifestyle, Body scan showing 2 pounds of increased fat, but also 2 pounds of increased muscle. 04/01/2024: Weight 189 pounds, BMI 33.48. Currently not on weight loss medication. She is not a good candidate for Contrave given concomitant psychiatric medications. Would avoid phentermine given history of hypertension. Discussed Wegovy and Zepbound and patient will contact insurance to understand which medication may be covered by plan. Reviewed goals of lifestyle including diet and exercise. Plan to follow-up in approximately 1 month for further management. 04/29/2024: Weight 183 pounds, BMI 32.41. Seca scan completed today and interpreted with patient. She is down approximately 6 pounds from last visit. Prior authorization for Wegovy denied by insurance. Otherwise has been implementing lifestyle modifications including exercise. Reviewed goals of diet and hydration of 60 to 80 ounces daily. At this time we will trial Contrave 8-90 mg. Discussed proper use of the medication and potential side effect profile including but not limited to headache, dizziness, dry mouth, and GI upset. Advised that medication requires a prior authorization which can take 2 to 4 weeks. If medication is uncovered she will pay as much as $99 per month through [email or web address]. Patient understanding. She will follow-up in office in 4 weeks for further management. # Osteoporosis of forearm and femoral head/hip: Taking vitamin D/calcium. Finding in 2022 with plan to repeat in next 1 to 2 years. Not interested in medication for treatment of osteoporosis at this time. # Hypertension: BP 118/76. Continue amlodipine 5 mg once daily. No longer taking clonidine. Discussed red flag signs of hypertension clinic but not limited to headache, blurry vision, chest pain, difficulty breathing, dizziness, or weakness. Will continue to monitor. # Asthma: Currently well-controlled without maintenance inhalers. Continue albuterol sulfate as needed. # Bipolar disorder: History of 2 prior hospitalizations. Currently stable on current regimen followed by psychiatry through [facility]. # Insomnia: Continue trazodone and gabapentin. Medications managed by psychiatry. # Hyperlipidemia: Total cholesterol on 12/06/2023 with LDL 107. Reviewed importance of lifestyle to help lower cholesterol and prevent other comorbidities. Will repeat lipid panel in 6 months and consider statin if increased. Discussed importance of incorporating fish oil. # Anxiety: Stable at this time, managed with psychiatry through [facility]. Infrequently uses lorazepam for panic symptoms. Reports some improvement with the clonidine. # Migraines: Per chart review has had 2 ED visits due to severe headaches. Follows with Dr. Troy with neurology. Trialed sumatriptan however made her nauseous. Continue butalbital, APAP, and caffeine tablet. All questions have been answered to patient's satisfaction. Patient verbalized understanding of diagnosis and treatments explained. Advised to call sooner prior to next visit it any questions/concerns arise. Case discussed with collaborating physician Hudson Vela who reviewed the assessment and plan. Chart, medications, labs, vital signs reviewed. Dictation was accomplished with the use of [employer] voice recognition software, which is prone to medical misidentifications and grammatical errors. This are unintentional and the practitioner does try to identify and correct these, but some could still be present. Please do not hesitate to contact practitioner for clarification. 05/27/2024 BMI 32.0-32.9,adult (ICD-10 - Z68.32) Patient is here for weight management follow-up. We focused on significance of healthy lifestyle changes. We talked about need to track steps with goal between 6000-10,000 steps daily, focus on portion control, read food labels, get adequate sleep between 7 to 8 hours, get adequate rest to the body, meditate, frequent nutritious meals including vegetables and healthy choices of lean meats, fish, and elimination of refined carbohydrates. We also talked about mindfulness and mindful eating. Particular focus was on continuing to improve diet and increase physical activity as well as reducing alcohol consumption. Total time spent with 30 minutes with greater than 50% spent on counseling and coordinating care. 11/30/2023:Weight 184, BMI 32 Extensively educated on lifestyle modifications including high-protein foods, low carbohydrate snacks, healthy fats, sleep hygiene, stress reduction. Provided with educational documentation in regards to all of this. Discussed cortisol [place] for sleep. Options limited for medication secondary to Medicare. Discussed Contrave which patient would like to avoid because she does drink alcohol on occasion. Avoid phentermine due to age. Patient also has a history of insomnia/difficulty sleeping. Will obtain blood work for physical in 4 weeks. 01/03/2024: Weight 184, BMI 32.7. Patient's weight has plateaued since consultation last visit. She is still working on lifestyle. Hesitant to start GLP-1 secondary to patient's concern for hair loss. Is going to contact her health insurance to see if they cover medication such as Wegovy or Zepbound. Otherwise, discussed [id number] options but patient states that this is a challenge for her to afford. Continue to encourage that she is able to do this with lifestyle alone with consistency. 02/28/24: Weight 186, BMI 32. Patient is going to contact her health insurance to see if they cover medication such as Zepbound or Wegovy and with the [id number] cost looks like. Avoid Contrave due to other psychiatric medications.Avoid phentermine secondary to history of hypertension, Continue to encourage lifestyle, Body scan showing 2 pounds of increased fat, but also 2 pounds of increased muscle. 04/01/2024: Weight 189 pounds, BMI 33.48. Currently not on weight loss medication. She is not a good candidate for Contrave given concomitant psychiatric medications. Would avoid phentermine given history of hypertension. Discussed Wegovy and Zepbound and patient will contact insurance to understand which medication may be covered by plan. Reviewed goals of lifestyle including diet and exercise. Plan to follow-up in approximately 1 month for further management. 04/29/2024: Weight 183 pounds, BMI 32.41. Seca scan completed today and interpreted with patient. She is down approximately 6 pounds from last visit. Prior authorization for Wegovy denied by insurance. Otherwise has been implementing lifestyle modifications including exercise. Reviewed goals of diet and hydration of 60 to 80 ounces daily. At this time we will trial Contrave 8-90 mg. Discussed proper use of the medication and potential side effect profile including but not limited to headache, dizziness, dry mouth, and GI upset. Advised that medication requires a prior authorization which can take 2 to 4 weeks. If medication is uncovered she will pay as much as $99 per month through [email or web address]. Patient understanding. She will follow-up in office in 4 weeks for further management. 05/27/2024: Weight 183 pounds, BMI 32.41. Seca scan completed today and interpreted with the patient. Patient's weight has been stable since last visit. Is now going to retrial Contrave, tried a couple doses however had a headache. Reviewed goals of diet and exercise as well as hydration 60 to 80 ounces daily. She will follow-up in office in approximately 4 weeks at which time we will reevaluate progress. # Osteoporosis of forearm and femoral head/hip: Taking vitamin D/calcium. Finding in 2022 with plan to repeat in next 1 to 2 years. Not interested in medication for treatment of osteoporosis at this time. # Hypertension: BP 128/88. Continue amlodipine 5 mg once daily. No longer taking clonidine. Discussed red flag signs of hypertension clinic but not limited to headache, blurry vision, chest pain, difficulty breathing, dizziness, or weakness. Will continue to monitor. # Asthma: Currently well-controlled without maintenance inhalers. Continue albuterol sulfate as needed. # Bipolar disorder: History of 2 prior hospitalizations. Currently stable on current regimen followed by psychiatry through [facility]. # Insomnia: Continue trazodone and gabapentin. Medications managed by psychiatry. # Hyperlipidemia: Total cholesterol on 12/06/2023 with LDL 107. Reviewed importance of lifestyle to help lower cholesterol and prevent other comorbidities. Will repeat lipid panel in 6 months and consider statin if increased. Discussed importance of incorporating fish oil. # Anxiety: Stable at this time, managed with psychiatry through [facility]. Infrequently uses lorazepam for panic symptoms. Reports some improvement with the clonidine. # Migraines: Per chart review has had 2 ED visits due to severe headaches. Follows with Dr. Troy with neurology. Trialed sumatriptan however made her nauseous. Continue butalbital, APAP, and caffeine tablet. All questions have been answered to patient's satisfaction. Patient verbalized understanding of diagnosis and treatments explained. Advised to call sooner prior to next visit it any questions/concerns arise. Case discussed with collaborating physician Hudson Vela who reviewed the assessment and plan. Chart, medications, labs, vital signs reviewed. Dictation was accomplished with the use of [employer] voice recognition software, which is prone to medical misidentifications and grammatical errors. This are unintentional and the practitioner does try to identify and correct these, but some could still be present. Please do not hesitate to contact practitioner for clarification. 04/01/2024 Primary hypertension (ICD-10 - I10) Patient is here for weight management follow-up. We focused on significance of healthy lifestyle changes. We talked about need to track steps with goal between 6000-10,000 steps daily, focus on portion control, read food labels, get adequate sleep between 7 to 8 hours, get adequate rest to the body, meditate, frequent nutritious meals including vegetables and healthy choices of lean meats, fish, and elimination of refined carbohydrates. We also talked about mindfulness and mindful eating. Particular focus was on continuing to improve diet and increase physical activity as well as reducing alcohol consumption. Total time spent with 30 minutes with greater than 50% spent on counseling and coordinating care. 11/30/2023:Weight 184, BMI 32 Extensively educated on lifestyle modifications including high-protein foods, low carbohydrate snacks, healthy fats, sleep hygiene, stress reduction. Provided with educational documentation in regards to all of this. Discussed cortisol [place] for sleep. Options limited for medication secondary to Medicare. Discussed Contrave which patient would like to avoid because she does drink alcohol on occasion. Avoid phentermine due to age. Patient also has a history of insomnia/difficulty sleeping. Will obtain blood work for physical in 4 weeks. 01/03/2024: Weight 184, BMI 32.7. Patient's weight has plateaued since consultation last visit. She is still working on lifestyle. Hesitant to start GLP-1 secondary to patient's concern for hair loss. Is going to contact her health insurance to see if they cover medication such as Wegovy or Zepbound. Otherwise, discussed [id number] options but patient states that this is a challenge for her to afford. Continue to encourage that she is able to do this with lifestyle alone with consistency. 02/28/24: Weight 186, BMI 32. Patient is going to contact her health insurance to see if they cover medication such as Zepbound or Wegovy and with the [id number] cost looks like. Avoid Contrave due to other psychiatric medications.Avoid phentermine secondary to history of hypertension, Continue to encourage lifestyle, Body scan showing 2 pounds of increased fat, but also 2 pounds of increased muscle. 04/01/2024: Weight 189 pounds, BMI 33.48. Currently not on weight loss medication. She is not a good candidate for Contrave given concomitant psychiatric medications. Would avoid phentermine given history of hypertension. Discussed Wegovy and Zepbound and patient will contact insurance to understand which medication may be covered by plan. Reviewed goals of lifestyle including diet and exercise. Plan to follow-up in approximately 1 month for further management. # Left ankle pain: Patient reporting injury to left ankle while she was consuming alcohol, was dressing and had a mechanical fall on her left foot. Reports improvement in pain overall, following up with podiatry tomorrow at [facility] [place] with Dr. Sheldon Spencer. Advised to continue [id number] Tylenol or ibuprofen as needed for pain. Will continue to monitor. # Hot flashes: Reporting on and off sensation of feeling hot then cold. TSH within normal limits at 1.670. She is in menopause at this time. Was previously on hormone replacement therapy however discontinued due to risks associated. Can consider DHEA-S for symptomatic treatment. # Osteoporosis of forearm and femoral head/hip: Taking vitamin D/calcium. Finding in 2022 with plan to repeat in next 1 to 2 years. Not interested in medication for treatment of osteoporosis at this time. # Hypertension: Continue amlodipine 5 mg once daily. No longer taking clonidine. Discussed red flag signs of hypertension clinic but not limited to headache, blurry vision, chest pain, difficulty breathing, dizziness, or weakness. Will continue to monitor. # Asthma: Currently well-controlled without maintenance inhalers. Continue albuterol sulfate as needed. # Bipolar disorder: History of 2 prior hospitalizations. Currently stable on current regimen followed by psychiatry through [facility]. # Insomnia: Continue trazodone and gabapentin. Medications managed by psychiatry. # Hyperlipidemia: Total cholesterol on 12/06/2023 with LDL 107. Reviewed importance of lifestyle to help lower cholesterol and prevent other comorbidities. Will repeat lipid panel in 6 months and consider statin if increased. Discussed importance of incorporating fish oil. # Anxiety: Stable at this time, managed with psychiatry through [facility]. Infrequently uses lorazepam for panic symptoms. Reports some improvement with the clonidine. # Migraines: Per chart review has had 2 ED visits due to severe headaches. Follows with Dr. Troy with neurology. Trialed sumatriptan however made her nauseous. Continue butalbital, APAP, and caffeine tablet. 04/01/2024 Bipolar disease, chronic (ICD-10 - F31.9) Patient is here for weight management follow-up. We focused on significance of healthy lifestyle changes. We talked about need to track steps with goal between 6000-10,000 steps daily, focus on portion control, read food labels, get adequate sleep between 7 to 8 hours, get adequate rest to the body, meditate, frequent nutritious meals including vegetables and healthy choices of lean meats, fish, and elimination of refined carbohydrates. We also talked about mindfulness and mindful eating. Particular focus was on continuing to improve diet and increase physical activity as well as reducing alcohol consumption. Total time spent with 30 minutes with greater than 50% spent on counseling and coordinating care. 11/30/2023:Weight 184, BMI 32 Extensively educated on lifestyle modifications including high-protein foods, low carbohydrate snacks, healthy fats, sleep hygiene, stress reduction. Provided with educational documentation in regards to all of this. Discussed cortisol [place] for sleep. Options limited for medication secondary to Medicare. Discussed Contrave which patient would like to avoid because she does drink alcohol on occasion. Avoid phentermine due to age. Patient also has a history of insomnia/difficulty sleeping. Will obtain blood work for physical in 4 weeks. 01/03/2024: Weight 184, BMI 32.7. Patient's weight has plateaued since consultation last visit. She is still working on lifestyle. Hesitant to start GLP-1 secondary to patient's concern for hair loss. Is going to contact her health insurance to see if they cover medication such as Wegovy or Zepbound. Otherwise, discussed [id number] options but patient states that this is a challenge for her to afford. Continue to encourage that she is able to do this with lifestyle alone with consistency. 02/28/24: Weight 186, BMI 32. Patient is going to contact her health insurance to see if they cover medication such as Zepbound or Wegovy and with the [id number] cost looks like. Avoid Contrave due to other psychiatric medications.Avoid phentermine secondary to history of hypertension, Continue to encourage lifestyle, Body scan showing 2 pounds of increased fat, but also 2 pounds of increased muscle. 04/01/2024: Weight 189 pounds, BMI 33.48. Currently not on weight loss medication. She is not a good candidate for Contrave given concomitant psychiatric medications. Would avoid phentermine given history of hypertension. Discussed Wegovy and Zepbound and patient will contact insurance to understand which medication may be covered by plan. Reviewed goals of lifestyle including diet and exercise. Plan to follow-up in approximately 1 month for further management. # Left ankle pain: Patient reporting injury to left ankle while she was consuming alcohol, was dressing and had a mechanical fall on her left foot. Reports improvement in pain overall, following up with podiatry tomorrow at [facility] [place] with Dr. Sheldon Spencer. Advised to continue [id number] Tylenol or ibuprofen as needed for pain. Will continue to monitor. # Hot flashes: Reporting on and off sensation of feeling hot then cold. TSH within normal limits at 1.670. She is in menopause at this time. Was previously on hormone replacement therapy however discontinued due to risks associated. Can consider DHEA-S for symptomatic treatment. # Osteoporosis of forearm and femoral head/hip: Taking vitamin D/calcium. Finding in 2022 with plan to repeat in next 1 to 2 years. Not interested in medication for treatment of osteoporosis at this time. # Hypertension: Continue amlodipine 5 mg once daily. No longer taking clonidine. Discussed red flag signs of hypertension clinic but not limited to headache, blurry vision, chest pain, difficulty breathing, dizziness, or weakness. Will continue to monitor. # Asthma: Currently well-controlled without maintenance inhalers. Continue albuterol sulfate as needed. # Bipolar disorder: History of 2 prior hospitalizations. Currently stable on current regimen followed by psychiatry through [facility]. # Insomnia: Continue trazodone and gabapentin. Medications managed by psychiatry. # Hyperlipidemia: Total cholesterol on 12/06/2023 with LDL 107. Reviewed importance of lifestyle to help lower cholesterol and prevent other comorbidities. Will repeat lipid panel in 6 months and consider statin if increased. Discussed importance of incorporating fish oil. # Anxiety: Stable at this time, managed with psychiatry through [facility]. Infrequently uses lorazepam for panic symptoms. Reports some improvement with the clonidine. # Migraines: Per chart review has had 2 ED visits due to severe headaches. Follows with Dr. Troy with neurology. Trialed sumatriptan however made her nauseous. Continue butalbital, APAP, and caffeine tablet. 05/27/2024 Primary hypertension (ICD-10 - I10) Patient is here for weight management follow-up. We focused on significance of healthy lifestyle changes. We talked about need to track steps with goal between 6000-10,000 steps daily, focus on portion control, read food labels, get adequate sleep between 7 to 8 hours, get adequate rest to the body, meditate, frequent nutritious meals including vegetables and healthy choices of lean meats, fish, and elimination of refined carbohydrates. We also talked about mindfulness and mindful eating. Particular focus was on continuing to improve diet and increase physical activity as well as reducing alcohol consumption. Total time spent with 30 minutes with greater than 50% spent on counseling and coordinating care. 11/30/2023:Weight 184, BMI 32 Extensively educated on lifestyle modifications including high-protein foods, low carbohydrate snacks, healthy fats, sleep hygiene, stress reduction. Provided with educational documentation in regards to all of this. Discussed cortisol [place] for sleep. Options limited for medication secondary to Medicare. Discussed Contrave which patient would like to avoid because she does drink alcohol on occasion. Avoid phentermine due to age. Patient also has a history of insomnia/difficulty sleeping. Will obtain blood work for physical in 4 weeks. 01/03/2024: Weight 184, BMI 32.7. Patient's weight has plateaued since consultation last visit. She is still working on lifestyle. Hesitant to start GLP-1 secondary to patient's concern for hair loss. Is going to contact her health insurance to see if they cover medication such as Wegovy or Zepbound. Otherwise, discussed [id number] options but patient states that this is a challenge for her to afford. Continue to encourage that she is able to do this with lifestyle alone with consistency. 02/28/24: Weight 186, BMI 32. Patient is going to contact her health insurance to see if they cover medication such as Zepbound or Wegovy and with the [id number] cost looks like. Avoid Contrave due to other psychiatric medications.Avoid phentermine secondary to history of hypertension, Continue to encourage lifestyle, Body scan showing 2 pounds of increased fat, but also 2 pounds of increased muscle. 04/01/2024: Weight 189 pounds, BMI 33.48. Currently not on weight loss medication. She is not a good candidate for Contrave given concomitant psychiatric medications. Would avoid phentermine given history of hypertension. Discussed Wegovy and Zepbound and patient will contact insurance to understand which medication may be covered by plan. Reviewed goals of lifestyle including diet and exercise. Plan to follow-up in approximately 1 month for further management. 04/29/2024: Weight 183 pounds, BMI 32.41. Seca scan completed today and interpreted with patient. She is down approximately 6 pounds from last visit. Prior authorization for Wegovy denied by insurance. Otherwise has been implementing lifestyle modifications including exercise. Reviewed goals of diet and hydration of 60 to 80 ounces daily. At this time we will trial Contrave 8-90 mg. Discussed proper use of the medication and potential side effect profile including but not limited to headache, dizziness, dry mouth, and GI upset. Advised that medication requires a prior authorization which can take 2 to 4 weeks. If medication is uncovered she will pay as much as $99 per month through [email or web address]. Patient understanding. She will follow-up in office in 4 weeks for further management. 05/27/2024: Weight 183 pounds, BMI 32.41. Seca scan completed today and interpreted with the patient. Patient's weight has been stable since last visit. Is now going to retrial Contrave, tried a couple doses however had a headache. Reviewed goals of diet and exercise as well as hydration 60 to 80 ounces daily. She will follow-up in office in approximately 4 weeks at which time we will reevaluate progress. # Osteoporosis of forearm and femoral head/hip: Taking vitamin D/calcium. Finding in 2022 with plan to repeat in next 1 to 2 years. Not interested in medication for treatment of osteoporosis at this time. # Hypertension: BP 128/88. Continue amlodipine 5 mg once daily. No longer taking clonidine. Discussed red flag signs of hypertension clinic but not limited to headache, blurry vision, chest pain, difficulty breathing, dizziness, or weakness. Will continue to monitor. # Asthma: Currently well-controlled without maintenance inhalers. Continue albuterol sulfate as needed. # Bipolar disorder: History of 2 prior hospitalizations. Currently stable on current regimen followed by psychiatry through [facility]. # Insomnia: Continue trazodone and gabapentin. Medications managed by psychiatry. # Hyperlipidemia: Total cholesterol on 12/06/2023 with LDL 107. Reviewed importance of lifestyle to help lower cholesterol and prevent other comorbidities. Will repeat lipid panel in 6 months and consider statin if increased. Discussed importance of incorporating fish oil. # Anxiety: Stable at this time, managed with psychiatry through [facility]. Infrequently uses lorazepam for panic symptoms. Reports some improvement with the clonidine. # Migraines: Per chart review has had 2 ED visits due to severe headaches. Follows with Dr. Troy with neurology. Trialed sumatriptan however made her nauseous. Continue butalbital, APAP, and caffeine tablet. All questions have been answered to patient's satisfaction. Patient verbalized understanding of diagnosis and treatments explained. Advised to call sooner prior to next visit it any questions/concerns arise. Case discussed with collaborating physician Hudson Vela who reviewed the assessment and plan. Chart, medications, labs, vital signs reviewed. Dictation was accomplished with the use of [employer] voice recognition software, which is prone to medical misidentifications and grammatical errors. This are unintentional and the practitioner does try to identify and correct these, but some could still be present. Please do not hesitate to contact practitioner for clarification. 04/29/2024 Bipolar disease, chronic (ICD-10 - F31.9) Patient is here for weight management follow-up. We focused on significance of healthy lifestyle changes. We talked about need to track steps with goal between 6000-10,000 steps daily, focus on portion control, read food labels, get adequate sleep between 7 to 8 hours, get adequate rest to the body, meditate, frequent nutritious meals including vegetables and healthy choices of lean meats, fish, and elimination of refined carbohydrates. We also talked about mindfulness and mindful eating. Particular focus was on continuing to improve diet and increase physical activity as well as reducing alcohol consumption. Total time spent with 30 minutes with greater than 50% spent on counseling and coordinating care. 11/30/2023:Weight 184, BMI 32 Extensively educated on lifestyle modifications including high-protein foods, low carbohydrate snacks, healthy fats, sleep hygiene, stress reduction. Provided with educational documentation in regards to all of this. Discussed cortisol [place] for sleep. Options limited for medication secondary to Medicare. Discussed Contrave which patient would like to avoid because she does drink alcohol on occasion. Avoid phentermine due to age. Patient also has a history of insomnia/difficulty sleeping. Will obtain blood work for physical in 4 weeks. 01/03/2024: Weight 184, BMI 32.7. Patient's weight has plateaued since consultation last visit. She is still working on lifestyle. Hesitant to start GLP-1 secondary to patient's concern for hair loss. Is going to contact her health insurance to see if they cover medication such as Wegovy or Zepbound. Otherwise, discussed [id number] options but patient states that this is a challenge for her to afford. Continue to encourage that she is able to do this with lifestyle alone with consistency. 02/28/24: Weight 186, BMI 32. Patient is going to contact her health insurance to see if they cover medication such as Zepbound or Wegovy and with the [id number] cost looks like. Avoid Contrave due to other psychiatric medications.Avoid phentermine secondary to history of hypertension, Continue to encourage lifestyle, Body scan showing 2 pounds of increased fat, but also 2 pounds of increased muscle. 04/01/2024: Weight 189 pounds, BMI 33.48. Currently not on weight loss medication. She is not a good candidate for Contrave given concomitant psychiatric medications. Would avoid phentermine given history of hypertension. Discussed Wegovy and Zepbound and patient will contact insurance to understand which medication may be covered by plan. Reviewed goals of lifestyle including diet and exercise. Plan to follow-up in approximately 1 month for further management. 04/29/2024: Weight 183 pounds, BMI 32.41. Seca scan completed today and interpreted with patient. She is down approximately 6 pounds from last visit. Prior authorization for Wegovy denied by insurance. Otherwise has been implementing lifestyle modifications including exercise. Reviewed goals of diet and hydration of 60 to 80 ounces daily. At this time we will trial Contrave 8-90 mg. Discussed proper use of the medication and potential side effect profile including but not limited to headache, dizziness, dry mouth, and GI upset. Advised that medication requires a prior authorization which can take 2 to 4 weeks. If medication is uncovered she will pay as much as $99 per month through [email or web address]. Patient understanding. She will follow-up in office in 4 weeks for further management. # Osteoporosis of forearm and femoral head/hip: Taking vitamin D/calcium. Finding in 2022 with plan to repeat in next 1 to 2 years. Not interested in medication for treatment of osteoporosis at this time. # Hypertension: BP 118/76. Continue amlodipine 5 mg once daily. No longer taking clonidine. Discussed red flag signs of hypertension clinic but not limited to headache, blurry vision, chest pain, difficulty breathing, dizziness, or weakness. Will continue to monitor. # Asthma: Currently well-controlled without maintenance inhalers. Continue albuterol sulfate as needed. # Bipolar disorder: History of 2 prior hospitalizations. Currently stable on current regimen followed by psychiatry through [facility]. # Insomnia: Continue trazodone and gabapentin. Medications managed by psychiatry. # Hyperlipidemia: Total cholesterol on 12/06/2023 with LDL 107. Reviewed importance of lifestyle to help lower cholesterol and prevent other comorbidities. Will repeat lipid panel in 6 months and consider statin if increased. Discussed importance of incorporating fish oil. # Anxiety: Stable at this time, managed with psychiatry through [facility]. Infrequently uses lorazepam for panic symptoms. Reports some improvement with the clonidine. # Migraines: Per chart review has had 2 ED visits due to severe headaches. Follows with Dr. Troy with neurology. Trialed sumatriptan however made her nauseous. Continue butalbital, APAP, and caffeine tablet. All questions have been answered to patient's satisfaction. Patient verbalized understanding of diagnosis and treatments explained. Advised to call sooner prior to next visit it any questions/concerns arise. Case discussed with collaborating physician Hudson Vela who reviewed the assessment and plan. Chart, medications, labs, vital signs reviewed. Dictation was accomplished with the use of [employer] voice recognition software, which is prone to medical misidentifications and grammatical errors. This are unintentional and the practitioner does try to identify and correct these, but some could still be present. Please do not hesitate to contact practitioner for clarification. 06/24/2024 Bipolar disease, chronic (ICD-10 - F31.9) Patient is here for weight management follow-up. We focused on significance of healthy lifestyle changes. We talked about need to track steps with goal between 6000-10,000 steps daily, focus on portion control, read food labels, get adequate sleep between 7 to 8 hours, get adequate rest to the body, meditate, frequent nutritious meals including vegetables and healthy choices of lean meats, fish, and elimination of refined carbohydrates. We also talked about mindfulness and mindful eating. Particular focus was on continuing to practice portion control and implement physical activity. Total time spent with 30 minutes with greater than 50% spent on counseling and coordinating care. 11/30/2023:Weight 184, BMI 32 Extensively educated on lifestyle modifications including high-protein foods, low carbohydrate snacks, healthy fats, sleep hygiene, stress reduction. Provided with educational documentation in regards to all of this. Discussed cortisol [place] for sleep. Options limited for medication secondary to Medicare. Discussed Contrave which patient would like to avoid because she does drink alcohol on occasion. Avoid phentermine due to age. Patient also has a history of insomnia/difficulty sleeping. Will obtain blood work for physical in 4 weeks. 01/03/2024: Weight 184, BMI 32.7. Patient's weight has plateaued since consultation last visit. She is still working on lifestyle. Hesitant to start GLP-1 secondary to patient's concern for hair loss. Is going to contact her health insurance to see if they cover medication such as Wegovy or Zepbound. Otherwise, discussed [id number] options but patient states that this is a challenge for her to afford. Continue to encourage that she is able to do this with lifestyle alone with consistency. 02/28/24: Weight 186, BMI 32. Patient is going to contact her health insurance to see if they cover medication such as Zepbound or Wegovy and with the [id number] cost looks like. Avoid Contrave due to other psychiatric medications.Avoid phentermine secondary to history of hypertension, Continue to encourage lifestyle, Body scan showing 2 pounds of increased fat, but also 2 pounds of increased muscle. 04/01/2024: Weight 189 pounds, BMI 33.48. Currently not on weight loss medication. She is not a good candidate for Contrave given concomitant psychiatric medications. Would avoid phentermine given history of hypertension. Discussed Wegovy and Zepbound and patient will contact insurance to understand which medication may be covered by plan. Reviewed goals of lifestyle including diet and exercise. Plan to follow-up in approximately 1 month for further management. 04/29/2024: Weight 183 pounds, BMI 32.41. Seca scan completed today and interpreted with patient. She is down approximately 6 pounds from last visit. Prior authorization for Wegovy denied by insurance. Otherwise has been implementing lifestyle modifications including exercise. Reviewed goals of diet and hydration of 60 to 80 ounces daily. At this time we will trial Contrave 8-90 mg. Discussed proper use of the medication and potential side effect profile including but not limited to headache, dizziness, dry mouth, and GI upset. Advised that medication requires a prior authorization which can take 2 to 4 weeks. If medication is uncovered she will pay as much as $99 per month through [email or web address]. Patient understanding. She will follow-up in office in 4 weeks for further management. 05/27/2024: Weight 183 pounds, BMI 32.41. Seca scan completed today and interpreted with the patient. Patient's weight has been stable since last visit. Is now going to retrial Contrave, tried a couple doses however had a headache. Reviewed goals of diet and exercise as well as hydration 60 to 80 ounces daily. She will follow-up in office in approximately 4 weeks at which time we will reevaluate progress. 06/24/2024: Weight 177 pounds, BMI 31.35. SECA scan completed today and interpreted with the patient. Patient is down about 6 pounds from last visit. She is down 4 pounds of fat mass and has increased amounts of muscle mass. Waist circumference has decreased by 2 inches. Patient is no longer on Contrave due to adverse effects of dizziness and sensation of off balance. At this time not on medication. Insurance not covering GLP-1 medications. We discussed use of compounded medications including compounded tirzepatide and semaglutide. Patient will have discussion with her and get back to our office regarding plan of action. Otherwise we reviewed goals of diet and exercise as well as hydration 60 to 80 ounces daily. Plan is to follow-up for weight management in 4 weeks for further assessment. # Osteoporosis of forearm and femoral head/hip: Taking vitamin D/calcium. Finding in 2022 with plan to repeat in next 1 to 2 years. Not interested in medication for treatment of osteoporosis at this time. # Hypertension: BP (). Continue amlodipine 5 mg once daily. No longer taking clonidine. Discussed red flag signs of hypertension clinic but not limited to headache, blurry vision, chest pain, difficulty breathing, dizziness, or weakness. Will continue to monitor. # Asthma: Currently well-controlled without maintenance inhalers. Continue albuterol sulfate as needed. # Bipolar disorder: History of 2 prior hospitalizations. Currently stable on current regimen followed by psychiatry through [facility]. # Insomnia: Continue trazodone and gabapentin. Medications managed by psychiatry. # Hyperlipidemia: Total cholesterol on 12/06/2023 with LDL 107. Reviewed importance of lifestyle to help lower cholesterol and prevent other comorbidities. Will repeat lipid panel at next f/u and consider statin if increased. Discussed importance of incorporating fish oil. # Anxiety: Stable at this time, managed with psychiatry through [facility]. Infrequently uses lorazepam for panic symptoms. Reports some improvement with the clonidine. # Migraines: Per chart review has had 2 ED visits due to severe headaches. Follows with Dr. Troy with neurology. Trialed sumatriptan however made her nauseous. Continue butalbital, APAP, and caffeine tablet. # Preventative medicine: Patient recently updated her Shingrix vaccine. Had first dose in series however this was a few years ago and now has to restart series. Will complete second dose in approximately 2 to 6 months. Also recently updated COVID booster. All questions have been answered to patient's satisfaction. Patient verbalized understanding of diagnosis and treatments explained. Advised to call sooner prior to next visit it any questions/concerns arise. Case discussed with collaborating physician Hudson Vela who reviewed the assessment and plan. Chart, medications, labs, vital signs reviewed. Dictation was accomplished with the use of [employer] voice recognition software, which is prone to medical misidentifications and grammatical errors. This are unintentional and the practitioner does try to identify and correct these, but some could still be present. Please do not hesitate to contact practitioner for clarification. 06/26/2024 Bipolar disease, chronic (ICD-10 - F31.9) Wendi is a 64-year-old male with a of multiple medical conditions who presents today for follow-up today of hyperlipidemia. Cardiopulmonary exam unremarkable. Patient will follow-up in office for her annual exam in December with updated labs. # Hyperlipidemia: Updated lipid panel on with total cholesterol 229, HDL 91, triglycerides 86, LDL 119. LDL and total cholesterol have slightly increased from labs in November. Low ASCVD risk less than 10%, no indication for statin at this time. Discussed other measures of lowering cholesterol including incorporating fiber in diet, regular vitamin D intake, use of turmeric supplements, fish oil which she currently takes, as well as maintaining regular physical activity. Patient understanding and will reevaluate lipid panel at her next visit in December. # Hypertension: BP 122/80. Continue amlodipine 5 mg once daily. No longer taking clonidine. Discussed red flag signs of hypertension clinic but not limited to headache, blurry vision, chest pain, difficulty breathing, dizziness, or weakness. Will continue to monitor. # Asthma: Currently well-controlled without maintenance inhalers. Continue albuterol sulfate as needed. # Bipolar disorder: History of 2 prior hospitalizations. Currently stable on current regimen followed by psychiatry through [facility]. # Insomnia: Continue trazodone and gabapentin. Medications managed by psychiatry. # Anxiety: Stable at this time, managed with psychiatry through [facility]. Infrequently uses lorazepam for panic symptoms. Reports some improvement with the clonidine. # Migraines: Per chart review has had 2 ED visits due to severe headaches. Follows with Dr. Troy with neurology. Trialed sumatriptan however made her nauseous. Continue butalbital, APAP, and caffeine tablet. # Obesity: Weight 177 pounds, BMI 31.35. Patient established in weight management program, next follow-up on 07/25/2024. Will continue to monitor. All questions have been answered to patient's satisfaction. Patient verbalized understanding of diagnosis and treatments explained. Advised to call sooner prior to next visit it any questions/concerns arise. Case discussed with collaborating physician Hudson Vela who reviewed the assessment and plan. Chart, medications, labs, vital signs reviewed. Dictation was accomplished with the use of [employer] voice recognition software, which is prone to medical misidentifications and grammatical errors. This are unintentional and the practitioner does try to identify and correct these, but some could still be present. Please do not hesitate to contact practitioner for clarification. 01/07/2025 Adult-onset obesity (ICD-10 - E66.9) Patient is here for a Medicare wellness visit. Complete paperwork was reviewed and updated and has been filed and scanned. Depression screen completed. Alcohol AUDIT SCREEN completed. Obesity screen completed. Cardiovascular risk stratification screen completed. # Hyperlipidemia: Lipid panel updated on 01/03/2025 with values of total cholesterol 220, triglycerides 55, LDL 103, HDL 106. ASCVD risk of 5.4%, moderate intensity statin is recommended. Patient centered discussion had today regarding ongoing treatment for hyperlipidemia, at this time patient states that she would prefer to not go on statin and continue to prioritize lifestyle. Discussed other measures of lowering cholesterol including incorporating fiber in diet, regular vitamin D intake, use of turmeric supplements, fish oil which she currently takes, as well as maintaining regular physical activity. # Hypertension: BP stable in office. Continue amlodipine 5 mg once daily. No longer taking clonidine. Discussed red flag signs of hypertension clinic but not limited to headache, blurry vision, chest pain, difficulty breathing, dizziness, or weakness. Will continue to monitor. # Asthma: Currently well-controlled without maintenance inhalers. Continue albuterol sulfate as needed. # Bipolar II disorder: Last televisit with psychiatry on 05/13/2024. Per specialist note review, mood symptoms are well-managed. She reports some sleep issues but is satisfied with trazodone and will work on sleep hygiene. Psychiatric evaluation is without wilfredo, psychosis, delusions, or OCD behaviors. Denies SI or HI. No previous history of suicidal attempts. Plan with specialist is to continue Ativan 0.5 mg daily as needed for anxiety, trazodone 225 to 300 mg nightly for sleep as needed, and to decrease gabapentin 800 mg from 3 times daily to 2 times daily. # Insomnia: Continue trazodone 225 to 300 mg once nightly as needed for sleep. Continue to practice good sleep hygiene. # Anxiety: Stable at this time, managed with psychiatry through [facility]. Infrequently uses lorazepam for panic symptoms. Reports some improvement with the clonidine. # Migraines: Per chart review has had 2 ED visits due to severe headaches. Follows with Dr. Troy with neurology. Trialed sumatriptan however made her nauseous. Continue butalbital, APAP, and caffeine tablet. # Obesity: Weight 186 pounds, BMI 32.94. Discussed lifestyle modifications to treat underlying obesity. Patient has been improving her diet. She is down 4 pounds from her last visit in October. Continue to monitor. # Preventative medicine: Patient up-to-date on all vaccinations. Mammogram updated November 2024. Updated bone mineral density scan is scheduled. # Advance care planning: Discussed and provided forms today for healthcare proxy and MOLST. Cognition assessed and within reasonable limits Fall risk assessed. Discussed healthcare proxy. Discussed [place] order for life sustaining treatment, end-of-life issues, intubation and resuscitation dialysis artificial nutrition and hydration is appropriate. We discussed [place] order for life sustaining treatment and healthcare proxy. We discussed need for resuscitation, intubation, ventilation, need for dialysis, short-term versus long-term, nutrition, IV nutrition and hydration. Total time spent was 45 minutes with greater than 50% spent on counseling and coordinating care All questions have been answered to patient's satisfaction. Patient verbalized understanding of diagnosis and treatments explained. Advised to call sooner prior to next visit it any questions/concerns arise. Case discussed with collaborating physician Hudson Vela who reviewed the assessment and plan. Chart, medications, labs, vital signs reviewed. Dictation was accomplished with the use of [employer] voice recognition software, which is prone to medical misidentifications and grammatical errors. This are unintentional and the practitioner does try to identify and correct these, but some could still be present. Please do not hesitate to contact practitioner for clarification. 01/07/2025 BMI 32.0-32.9,adult (ICD-10 - Z68.32) Patient is here for a Medicare wellness visit. Complete paperwork was reviewed and updated and has been filed and scanned. Depression screen completed. Alcohol AUDIT SCREEN completed. Obesity screen completed. Cardiovascular risk stratification screen completed. # Hyperlipidemia: Lipid panel updated on 01/03/2025 with values of total cholesterol 220, triglycerides 55, LDL 103, HDL 106. ASCVD risk of 5.4%, moderate intensity statin is recommended. Patient centered discussion had today regarding ongoing treatment for hyperlipidemia, at this time patient states that she would prefer to not go on statin and continue to prioritize lifestyle. Discussed other measures of lowering cholesterol including incorporating fiber in diet, regular vitamin D intake, use of turmeric supplements, fish oil which she currently takes, as well as maintaining regular physical activity. # Hypertension: BP stable in office. Continue amlodipine 5 mg once daily. No longer taking clonidine. Discussed red flag signs of hypertension clinic but not limited to headache, blurry vision, chest pain, difficulty breathing, dizziness, or weakness. Will continue to monitor. # Asthma: Currently well-controlled without maintenance inhalers. Continue albuterol sulfate as needed. # Bipolar II disorder: Last televisit with psychiatry on 05/13/2024. Per specialist note review, mood symptoms are well-managed. She reports some sleep issues but is satisfied with trazodone and will work on sleep hygiene. Psychiatric evaluation is without wilfredo, psychosis, delusions, or OCD behaviors. Denies SI or HI. No previous history of suicidal attempts. Plan with specialist is to continue Ativan 0.5 mg daily as needed for anxiety, trazodone 225 to 300 mg nightly for sleep as needed, and to decrease gabapentin 800 mg from 3 times daily to 2 times daily. # Insomnia: Continue trazodone 225 to 300 mg once nightly as needed for sleep. Continue to practice good sleep hygiene. # Anxiety: Stable at this time, managed with psychiatry through [facility]. Infrequently uses lorazepam for panic symptoms. Reports some improvement with the clonidine. # Migraines: Per chart review has had 2 ED visits due to severe headaches. Follows with Dr. Troy with neurology. Trialed sumatriptan however made her nauseous. Continue butalbital, APAP, and caffeine tablet. # Obesity: Weight 186 pounds, BMI 32.94. Discussed lifestyle modifications to treat underlying obesity. Patient has been improving her diet. She is down 4 pounds from her last visit in October. Continue to monitor. # Preventative medicine: Patient up-to-date on all vaccinations. Mammogram updated November 2024. Updated bone mineral density scan is scheduled. # Advance care planning: Discussed and provided forms today for healthcare proxy and MOLST. Cognition assessed and within reasonable limits Fall risk assessed. Discussed healthcare proxy. Discussed [place] order for life sustaining treatment, end-of-life issues, intubation and resuscitation dialysis artificial nutrition and hydration is appropriate. We discussed [place] order for life sustaining treatment and healthcare proxy. We discussed need for resuscitation, intubation, ventilation, need for dialysis, short-term versus long-term, nutrition, IV nutrition and hydration. Total time spent was 45 minutes with greater than 50% spent on counseling and coordinating care All questions have been answered to patient's satisfaction. Patient verbalized understanding of diagnosis and treatments explained. Advised to call sooner prior to next visit it any questions/concerns arise. Case discussed with collaborating physician Hudson Vela who reviewed the assessment and plan. Chart, medications, labs, vital signs reviewed. Dictation was accomplished with the use of [employer] voice recognition software, which is prone to medical misidentifications and grammatical errors. This are unintentional and the practitioner does try to identify and correct these, but some could still be present. Please do not hesitate to contact practitioner for clarification. 06/26/2024 Other insomnia (ICD-10 - G47.09) Wendi is a 64-year-old male with a of multiple medical conditions who presents today for follow-up today of hyperlipidemia. Cardiopulmonary exam unremarkable. Patient will follow-up in office for her annual exam in December with updated labs. # Hyperlipidemia: Updated lipid panel on with total cholesterol 229, HDL 91, triglycerides 86, LDL 119. LDL and total cholesterol have slightly increased from labs in November. Low ASCVD risk less than 10%, no indication for statin at this time. Discussed other measures of lowering cholesterol including incorporating fiber in diet, regular vitamin D intake, use of turmeric supplements, fish oil which she currently takes, as well as maintaining regular physical activity. Patient understanding and will reevaluate lipid panel at her next visit in December. # Hypertension: BP 122/80. Continue amlodipine 5 mg once daily. No longer taking clonidine. Discussed red flag signs of hypertension clinic but not limited to headache, blurry vision, chest pain, difficulty breathing, dizziness, or weakness. Will continue to monitor. # Asthma: Currently well-controlled without maintenance inhalers. Continue albuterol sulfate as needed. # Bipolar disorder: History of 2 prior hospitalizations. Currently stable on current regimen followed by psychiatry through [facility]. # Insomnia: Continue trazodone and gabapentin. Medications managed by psychiatry. # Anxiety: Stable at this time, managed with psychiatry through [facility]. Infrequently uses lorazepam for panic symptoms. Reports some improvement with the clonidine. # Migraines: Per chart review has had 2 ED visits due to severe headaches. Follows with Dr. Troy with neurology. Trialed sumatriptan however made her nauseous. Continue butalbital, APAP, and caffeine tablet. # Obesity: Weight 177 pounds, BMI 31.35. Patient established in weight management program, next follow-up on 07/25/2024. Will continue to monitor. All questions have been answered to patient's satisfaction. Patient verbalized understanding of diagnosis and treatments explained. Advised to call sooner prior to next visit it any questions/concerns arise. Case discussed with collaborating physician Hudson Vela who reviewed the assessment and plan. Chart, medications, labs, vital signs reviewed. Dictation was accomplished with the use of [employer] voice recognition software, which is prone to medical misidentifications and grammatical errors. This are unintentional and the practitioner does try to identify and correct these, but some could still be present. Please do not hesitate to contact practitioner for clarification. 06/24/2024 Mild intermittent asthma without complication (ICD-10 - J45.20) Patient is here for weight management follow-up. We focused on significance of healthy lifestyle changes. We talked about need to track steps with goal between 6000-10,000 steps daily, focus on portion control, read food labels, get adequate sleep between 7 to 8 hours, get adequate rest to the body, meditate, frequent nutritious meals including vegetables and healthy choices of lean meats, fish, and elimination of refined carbohydrates. We also talked about mindfulness and mindful eating. Particular focus was on continuing to practice portion control and implement physical activity. Total time spent with 30 minutes with greater than 50% spent on counseling and coordinating care. 11/30/2023:Weight 184, BMI 32 Extensively educated on lifestyle modifications including high-protein foods, low carbohydrate snacks, healthy fats, sleep hygiene, stress reduction. Provided with educational documentation in regards to all of this. Discussed cortisol manager [place] for sleep. Options limited for medication secondary to Medicare. Discussed Contrave which patient would like to avoid because she does drink alcohol on occasion. Avoid phentermine due to age. Patient also has a history of insomnia/difficulty sleeping. Will obtain blood work for physical in 4 weeks. 01/03/2024: Weight 184, BMI 32.7. Patient's weight has plateaued since consultation last visit. She is still working on lifestyle. Hesitant to start GLP-1 secondary to patient's concern for hair loss. Is going to contact her health insurance to see if they cover medication such as Wegovy or Zepbound. Otherwise, discussed [id number] options but patient states that this is a challenge for her to afford. Continue to encourage that she is able to do this with lifestyle alone with consistency. 02/28/24: Weight 186, BMI 32. Patient is going to contact her health insurance to see if they cover medication such as Zepbound or Wegovy and with the [id number] cost looks like. Avoid Contrave due to other psychiatric medications.Avoid phentermine secondary to history of hypertension, Continue to encourage lifestyle, Body scan showing 2 pounds of increased fat, but also 2 pounds of increased muscle. 04/01/2024: Weight 189 pounds, BMI 33.48. Currently not on weight loss medication. She is not a good candidate for Contrave given concomitant psychiatric medications. Would avoid phentermine given history of hypertension. Discussed Wegovy and Zepbound and patient will contact insurance to understand which medication may be covered by plan. Reviewed goals of lifestyle including diet and exercise. Plan to follow-up in approximately 1 month for further management. 04/29/2024: Weight 183 pounds, BMI 32.41. Seca scan completed today and interpreted with patient. She is down approximately 6 pounds from last visit. Prior authorization for Wegovy denied by insurance. Otherwise has been implementing lifestyle modifications including exercise. Reviewed goals of diet and hydration of 60 to 80 ounces daily. At this time we will trial Contrave 8-90 mg. Discussed proper use of the medication and potential side effect profile including but not limited to headache, dizziness, dry mouth, and GI upset. Advised that medication requires a prior authorization which can take 2 to 4 weeks. If medication is uncovered she will pay as much as $99 per month through [email or web address]. Patient understanding. She will follow-up in office in 4 weeks for further management. 05/27/2024: Weight 183 pounds, BMI 32.41. Seca scan completed today and interpreted with the patient. Patient's weight has been stable since last visit. Is now going to retrial Contrave, tried a couple doses however had a headache. Reviewed goals of diet and exercise as well as hydration 60 to 80 ounces daily. She will follow-up in office in approximately 4 weeks at which time we will reevaluate progress. 06/24/2024: Weight 177 pounds, BMI 31.35. SECA scan completed today and interpreted with the patient. Patient is down about 6 pounds from last visit. She is down 4 pounds of fat mass and has increased amounts of muscle mass. Waist circumference has decreased by 2 inches. Patient is no longer on Contrave due to adverse effects of dizziness and sensation of off balance. At this time not on medication. Insurance not covering GLP-1 medications. We discussed use of compounded medications including compounded tirzepatide and semaglutide. Patient will have discussion with her and get back to our office regarding plan of action. Otherwise we reviewed goals of diet and exercise as well as hydration 60 to 80 ounces daily. Plan is to follow-up for weight management in 4 weeks for further assessment. # Osteoporosis of forearm and femoral head/hip: Taking vitamin D/calcium. Finding in 2022 with plan to repeat in next 1 to 2 years. Not interested in medication for treatment of osteoporosis at this time. # Hypertension: BP (). Continue amlodipine 5 mg once daily. No longer taking clonidine. Discussed red flag signs of hypertension clinic but not limited to headache, blurry vision, chest pain, difficulty breathing, dizziness, or weakness. Will continue to monitor. # Asthma: Currently well-controlled without maintenance inhalers. Continue albuterol sulfate as needed. # Bipolar disorder: History of 2 prior hospitalizations. Currently stable on current regimen followed by psychiatry through [facility]. # Insomnia: Continue trazodone and gabapentin. Medications managed by psychiatry. # Hyperlipidemia: Total cholesterol on 12/06/2023 with LDL 107. Reviewed importance of lifestyle to help lower cholesterol and prevent other comorbidities. Will repeat lipid panel at next f/u and consider statin if increased. Discussed importance of incorporating fish oil. # Anxiety: Stable at this time, managed with psychiatry through [facility]. Infrequently uses lorazepam for panic symptoms. Reports some improvement with the clonidine. # Migraines: Per chart review has had 2 ED visits due to severe headaches. Follows with Dr. Troy with neurology. Trialed sumatriptan however made her nauseous. Continue butalbital, APAP, and caffeine tablet. # Preventative medicine: Patient recently updated her Shingrix vaccine. Had first dose in series however this was a few years ago and now has to restart series. Will complete second dose in approximately 2 to 6 months. Also recently updated COVID booster. All questions have been answered to patient's satisfaction. Patient verbalized understanding of diagnosis and treatments explained. Advised to call sooner prior to next visit it any questions/concerns arise. Case discussed with collaborating physician Hudson Vela who reviewed the assessment and plan. Chart, medications, labs, vital signs reviewed. Dictation was accomplished with the use of [employer] voice recognition software, which is prone to medical misidentifications and grammatical errors. This are unintentional and the practitioner does try to identify and correct these, but some could still be present. Please do not hesitate to contact practitioner for clarification. 05/27/2024 Bipolar disease, chronic (ICD-10 - F31.9) Patient is here for weight management follow-up. We focused on significance of healthy lifestyle changes. We talked about need to track steps with goal between 6000-10,000 steps daily, focus on portion control, read food labels, get adequate sleep between 7 to 8 hours, get adequate rest to the body, meditate, frequent nutritious meals including vegetables and healthy choices of lean meats, fish, and elimination of refined carbohydrates. We also talked about mindfulness and mindful eating. Particular focus was on continuing to improve diet and increase physical activity as well as reducing alcohol consumption. Total time spent with 30 minutes with greater than 50% spent on counseling and coordinating care. 11/30/2023:Weight 184, BMI 32 Extensively educated on lifestyle modifications including high-protein foods, low carbohydrate snacks, healthy fats, sleep hygiene, stress reduction. Provided with educational documentation in regards to all of this. Discussed cortisol manager [place] for sleep. Options limited for medication secondary to Medicare. Discussed Contrave which patient would like to avoid because she does drink alcohol on occasion. Avoid phentermine due to age. Patient also has a history of insomnia/difficulty sleeping. Will obtain blood work for physical in 4 weeks. 01/03/2024: Weight 184, BMI 32.7. Patient's weight has plateaued since consultation last visit. She is still working on lifestyle. Hesitant to start GLP-1 secondary to patient's concern for hair loss. Is going to contact her health insurance to see if they cover medication such as Wegovy or Zepbound. Otherwise, discussed [id number] options but patient states that this is a challenge for her to afford. Continue to encourage that she is able to do this with lifestyle alone with consistency. 02/28/24: Weight 186, BMI 32. Patient is going to contact her health insurance to see if they cover medication such as Zepbound or Wegovy and with the [id number] cost looks like. Avoid Contrave due to other psychiatric medications.Avoid phentermine secondary to history of hypertension, Continue to encourage lifestyle, Body scan showing 2 pounds of increased fat, but also 2 pounds of increased muscle. 04/01/2024: Weight 189 pounds, BMI 33.48. Currently not on weight loss medication. She is not a good candidate for Contrave given concomitant psychiatric medications. Would avoid phentermine given history of hypertension. Discussed Wegovy and Zepbound and patient will contact insurance to understand which medication may be covered by plan. Reviewed goals of lifestyle including diet and exercise. Plan to follow-up in approximately 1 month for further management. 04/29/2024: Weight 183 pounds, BMI 32.41. Seca scan completed today and interpreted with patient. She is down approximately 6 pounds from last visit. Prior authorization for Wegovy denied by insurance. Otherwise has been implementing lifestyle modifications including exercise. Reviewed goals of diet and hydration of 60 to 80 ounces daily. At this time we will trial Contrave 8-90 mg. Discussed proper use of the medication and potential side effect profile including but not limited to headache, dizziness, dry mouth, and GI upset. Advised that medication requires a prior authorization which can take 2 to 4 weeks. If medication is uncovered she will pay as much as $99 per month through [email or web address]. Patient understanding. She will follow-up in office in 4 weeks for further management. 05/27/2024: Weight 183 pounds, BMI 32.41. Seca scan completed today and interpreted with the patient. Patient's weight has been stable since last visit. Is now going to retrial Contrave, tried a couple doses however had a headache. Reviewed goals of diet and exercise as well as hydration 60 to 80 ounces daily. She will follow-up in office in approximately 4 weeks at which time we will reevaluate progress. # Osteoporosis of forearm and femoral head/hip: Taking vitamin D/calcium. Finding in 2022 with plan to repeat in next 1 to 2 years. Not interested in medication for treatment of osteoporosis at this time. # Hypertension: BP 128/88. Continue amlodipine 5 mg once daily. No longer taking clonidine. Discussed red flag signs of hypertension clinic but not limited to headache, blurry vision, chest pain, difficulty breathing, dizziness, or weakness. Will continue to monitor. # Asthma: Currently well-controlled without maintenance inhalers. Continue albuterol sulfate as needed. # Bipolar disorder: History of 2 prior hospitalizations. Currently stable on current regimen followed by psychiatry through [facility]. # Insomnia: Continue trazodone and gabapentin. Medications managed by psychiatry. # Hyperlipidemia: Total cholesterol on 12/06/2023 with LDL 107. Reviewed importance of lifestyle to help lower cholesterol and prevent other comorbidities. Will repeat lipid panel in 6 months and consider statin if increased. Discussed importance of incorporating fish oil. # Anxiety: Stable at this time, managed with psychiatry through [facility]. Infrequently uses lorazepam for panic symptoms. Reports some improvement with the clonidine. # Migraines: Per chart review has had 2 ED visits due to severe headaches. Follows with Dr. Troy with neurology. Trialed sumatriptan however made her nauseous. Continue butalbital, APAP, and caffeine tablet. All questions have been answered to patient's satisfaction. Patient verbalized understanding of diagnosis and treatments explained. Advised to call sooner prior to next visit it any questions/concerns arise. Case discussed with collaborating physician Hudson Vela who reviewed the assessment and plan. Chart, medications, labs, vital signs reviewed. Dictation was accomplished with the use of [employer] voice recognition software, which is prone to medical misidentifications and grammatical errors. This are unintentional and the practitioner does try to identify and correct these, but some could still be present. Please do not hesitate to contact practitioner for clarification. 04/29/2024 Mild intermittent asthma without complication (ICD-10 - J45.20) Patient is here for weight management follow-up. We focused on significance of healthy lifestyle changes. We talked about need to track steps with goal between 6000-10,000 steps daily, focus on portion control, read food labels, get adequate sleep between 7 to 8 hours, get adequate rest to the body, meditate, frequent nutritious meals including vegetables and healthy choices of lean meats, fish, and elimination of refined carbohydrates. We also talked about mindfulness and mindful eating. Particular focus was on continuing to improve diet and increase physical activity as well as reducing alcohol consumption. Total time spent with 30 minutes with greater than 50% spent on counseling and coordinating care. 11/30/2023:Weight 184, BMI 32 Extensively educated on lifestyle modifications including high-protein foods, low carbohydrate snacks, healthy fats, sleep hygiene, stress reduction. Provided with educational documentation in regards to all of this. Discussed cortisol [place] for sleep. Options limited for medication secondary to Medicare. Discussed Contrave which patient would like to avoid because she does drink alcohol on occasion. Avoid phentermine due to age. Patient also has a history of insomnia/difficulty sleeping. Will obtain blood work for physical in 4 weeks. 01/03/2024: Weight 184, BMI 32.7. Patient's weight has plateaued since consultation last visit. She is still working on lifestyle. Hesitant to start GLP-1 secondary to patient's concern for hair loss. Is going to contact her health insurance to see if they cover medication such as Wegovy or Zepbound. Otherwise, discussed [id number] options but patient states that this is a challenge for her to afford. Continue to encourage that she is able to do this with lifestyle alone with consistency. 02/28/24: Weight 186, BMI 32. Patient is going to contact her health insurance to see if they cover medication such as Zepbound or Wegovy and with the [id number] cost looks like. Avoid Contrave due to other psychiatric medications.Avoid phentermine secondary to history of hypertension, Continue to encourage lifestyle, Body scan showing 2 pounds of increased fat, but also 2 pounds of increased muscle. 04/01/2024: Weight 189 pounds, BMI 33.48. Currently not on weight loss medication. She is not a good candidate for Contrave given concomitant psychiatric medications. Would avoid phentermine given history of hypertension. Discussed Wegovy and Zepbound and patient will contact insurance to understand which medication may be covered by plan. Reviewed goals of lifestyle including diet and exercise. Plan to follow-up in approximately 1 month for further management. 04/29/2024: Weight 183 pounds, BMI 32.41. Seca scan completed today and interpreted with patient. She is down approximately 6 pounds from last visit. Prior authorization for Wegovy denied by insurance. Otherwise has been implementing lifestyle modifications including exercise. Reviewed goals of diet and hydration of 60 to 80 ounces daily. At this time we will trial Contrave 8-90 mg. Discussed proper use of the medication and potential side effect profile including but not limited to headache, dizziness, dry mouth, and GI upset. Advised that medication requires a prior authorization which can take 2 to 4 weeks. If medication is uncovered she will pay as much as $99 per month through [email or web address]. Patient understanding. She will follow-up in office in 4 weeks for further management. # Osteoporosis of forearm and femoral head/hip: Taking vitamin D/calcium. Finding in 2022 with plan to repeat in next 1 to 2 years. Not interested in medication for treatment of osteoporosis at this time. # Hypertension: BP 118/76. Continue amlodipine 5 mg once daily. No longer taking clonidine. Discussed red flag signs of hypertension clinic but not limited to headache, blurry vision, chest pain, difficulty breathing, dizziness, or weakness. Will continue to monitor. # Asthma: Currently well-controlled without maintenance inhalers. Continue albuterol sulfate as needed. # Bipolar disorder: History of 2 prior hospitalizations. Currently stable on current regimen followed by psychiatry through [facility]. # Insomnia: Continue trazodone and gabapentin. Medications managed by psychiatry. # Hyperlipidemia: Total cholesterol on 12/06/2023 with LDL 107. Reviewed importance of lifestyle to help lower cholesterol and prevent other comorbidities. Will repeat lipid panel in 6 months and consider statin if increased. Discussed importance of incorporating fish oil. # Anxiety: Stable at this time, managed with psychiatry through [facility]. Infrequently uses lorazepam for panic symptoms. Reports some improvement with the clonidine. # Migraines: Per chart review has had 2 ED visits due to severe headaches. Follows with Dr. Troy with neurology. Trialed sumatriptan however made her nauseous. Continue butalbital, APAP, and caffeine tablet. All questions have been answered to patient's satisfaction. Patient verbalized understanding of diagnosis and treatments explained. Advised to call sooner prior to next visit it any questions/concerns arise. Case discussed with collaborating physician Hudson Vela who reviewed the assessment and plan. Chart, medications, labs, vital signs reviewed. Dictation was accomplished with the use of [employer] voice recognition software, which is prone to medical misidentifications and grammatical errors. This are unintentional and the practitioner does try to identify and correct these, but some could still be present. Please do not hesitate to contact practitioner for clarification. 04/01/2024 Mild intermittent asthma without complication (ICD-10 - J45.20) Patient is here for weight management follow-up. We focused on significance of healthy lifestyle changes. We talked about need to track steps with goal between 6000-10,000 steps daily, focus on portion control, read food labels, get adequate sleep between 7 to 8 hours, get adequate rest to the body, meditate, frequent nutritious meals including vegetables and healthy choices of lean meats, fish, and elimination of refined carbohydrates. We also talked about mindfulness and mindful eating. Particular focus was on continuing to improve diet and increase physical activity as well as reducing alcohol consumption. Total time spent with 30 minutes with greater than 50% spent on counseling and coordinating care. 11/30/2023:Weight 184, BMI 32 Extensively educated on lifestyle modifications including high-protein foods, low carbohydrate snacks, healthy fats, sleep hygiene, stress reduction. Provided with educational documentation in regards to all of this. Discussed cortisol [place] for sleep. Options limited for medication secondary to Medicare. Discussed Contrave which patient would like to avoid because she does drink alcohol on occasion. Avoid phentermine due to age. Patient also has a history of insomnia/difficulty sleeping. Will obtain blood work for physical in 4 weeks. 01/03/2024: Weight 184, BMI 32.7. Patient's weight has plateaued since consultation last visit. She is still working on lifestyle. Hesitant to start GLP-1 secondary to patient's concern for hair loss. Is going to contact her health insurance to see if they cover medication such as Wegovy or Zepbound. Otherwise, discussed [id number] options but patient states that this is a challenge for her to afford. Continue to encourage that she is able to do this with lifestyle alone with consistency. 02/28/24: Weight 186, BMI 32. Patient is going to contact her health insurance to see if they cover medication such as Zepbound or Wegovy and with the [id number] cost looks like. Avoid Contrave due to other psychiatric medications.Avoid phentermine secondary to history of hypertension, Continue to encourage lifestyle, Body scan showing 2 pounds of increased fat, but also 2 pounds of increased muscle. 04/01/2024: Weight 189 pounds, BMI 33.48. Currently not on weight loss medication. She is not a good candidate for Contrave given concomitant psychiatric medications. Would avoid phentermine given history of hypertension. Discussed Wegovy and Zepbound and patient will contact insurance to understand which medication may be covered by plan. Reviewed goals of lifestyle including diet and exercise. Plan to follow-up in approximately 1 month for further management. # Left ankle pain: Patient reporting injury to left ankle while she was consuming alcohol, was dressing and had a mechanical fall on her left foot. Reports improvement in pain overall, following up with podiatry tomorrow at [facility] [place] with Dr. Sheldon Spencer. Advised to continue [id number] Tylenol or ibuprofen as needed for pain. Will continue to monitor. # Hot flashes: Reporting on and off sensation of feeling hot then cold. TSH within normal limits at 1.670. She is in menopause at this time. Was previously on hormone replacement therapy however discontinued due to risks associated. Can consider DHEA-S for symptomatic treatment. # Osteoporosis of forearm and femoral head/hip: Taking vitamin D/calcium. Finding in 2022 with plan to repeat in next 1 to 2 years. Not interested in medication for treatment of osteoporosis at this time. # Hypertension: Continue amlodipine 5 mg once daily. No longer taking clonidine. Discussed red flag signs of hypertension clinic but not limited to headache, blurry vision, chest pain, difficulty breathing, dizziness, or weakness. Will continue to monitor. # Asthma: Currently well-controlled without maintenance inhalers. Continue albuterol sulfate as needed. # Bipolar disorder: History of 2 prior hospitalizations. Currently stable on current regimen followed by psychiatry through [facility]. # Insomnia: Continue trazodone and gabapentin. Medications managed by psychiatry. # Hyperlipidemia: Total cholesterol on 12/06/2023 with LDL 107. Reviewed importance of lifestyle to help lower cholesterol and prevent other comorbidities. Will repeat lipid panel in 6 months and consider statin if increased. Discussed importance of incorporating fish oil. # Anxiety: Stable at this time, managed with psychiatry through [facility]. Infrequently uses lorazepam for panic symptoms. Reports some improvement with the clonidine. # Migraines: Per chart review has had 2 ED visits due to severe headaches. Follows with Dr. Troy with neurology. Trialed sumatriptan however made her nauseous. Continue butalbital, APAP, and caffeine tablet. 04/01/2024 Other insomnia (ICD-10 - G47.09) Patient is here for weight management follow-up. We focused on significance of healthy lifestyle changes. We talked about need to track steps with goal between 6000-10,000 steps daily, focus on portion control, read food labels, get adequate sleep between 7 to 8 hours, get adequate rest to the body, meditate, frequent nutritious meals including vegetables and healthy choices of lean meats, fish, and elimination of refined carbohydrates. We also talked about mindfulness and mindful eating. Particular focus was on continuing to improve diet and increase physical activity as well as reducing alcohol consumption. Total time spent with 30 minutes with greater than 50% spent on counseling and coordinating care. 11/30/2023:Weight 184, BMI 32 Extensively educated on lifestyle modifications including high-protein foods, low carbohydrate snacks, healthy fats, sleep hygiene, stress reduction. Provided with educational documentation in regards to all of this. Discussed cortisol [place] for sleep. Options limited for medication secondary to Medicare. Discussed Contrave which patient would like to avoid because she does drink alcohol on occasion. Avoid phentermine due to age. Patient also has a history of insomnia/difficulty sleeping. Will obtain blood work for physical in 4 weeks. 01/03/2024: Weight 184, BMI 32.7. Patient's weight has plateaued since consultation last visit. She is still working on lifestyle. Hesitant to start GLP-1 secondary to patient's concern for hair loss. Is going to contact her health insurance to see if they cover medication such as Wegovy or Zepbound. Otherwise, discussed [id number] options but patient states that this is a challenge for her to afford. Continue to encourage that she is able to do this with lifestyle alone with consistency. 02/28/24: Weight 186, BMI 32. Patient is going to contact her health insurance to see if they cover medication such as Zepbound or Wegovy and with the [id number] cost looks like. Avoid Contrave due to other psychiatric medications.Avoid phentermine secondary to history of hypertension, Continue to encourage lifestyle, Body scan showing 2 pounds of increased fat, but also 2 pounds of increased muscle. 04/01/2024: Weight 189 pounds, BMI 33.48. Currently not on weight loss medication. She is not a good candidate for Contrave given concomitant psychiatric medications. Would avoid phentermine given history of hypertension. Discussed Wegovy and Zepbound and patient will contact insurance to understand which medication may be covered by plan. Reviewed goals of lifestyle including diet and exercise. Plan to follow-up in approximately 1 month for further management. # Left ankle pain: Patient reporting injury to left ankle while she was consuming alcohol, was dressing and had a mechanical fall on her left foot. Reports improvement in pain overall, following up with podiatry tomorrow at [facility] [place] with Dr. Sheldon Spencer. Advised to continue [id number] Tylenol or ibuprofen as needed for pain. Will continue to monitor. # Hot flashes: Reporting on and off sensation of feeling hot then cold. TSH within normal limits at 1.670. She is in menopause at this time. Was previously on hormone replacement therapy however discontinued due to risks associated. Can consider DHEA-S for symptomatic treatment. # Osteoporosis of forearm and femoral head/hip: Taking vitamin D/calcium. Finding in 2022 with plan to repeat in next 1 to 2 years. Not interested in medication for treatment of osteoporosis at this time. # Hypertension: Continue amlodipine 5 mg once daily. No longer taking clonidine. Discussed red flag signs of hypertension clinic but not limited to headache, blurry vision, chest pain, difficulty breathing, dizziness, or weakness. Will continue to monitor. # Asthma: Currently well-controlled without maintenance inhalers. Continue albuterol sulfate as needed. # Bipolar disorder: History of 2 prior hospitalizations. Currently stable on current regimen followed by psychiatry through [facility]. # Insomnia: Continue trazodone and gabapentin. Medications managed by psychiatry. # Hyperlipidemia: Total cholesterol on 12/06/2023 with LDL 107. Reviewed importance of lifestyle to help lower cholesterol and prevent other comorbidities. Will repeat lipid panel in 6 months and consider statin if increased. Discussed importance of incorporating fish oil. # Anxiety: Stable at this time, managed with psychiatry through [facility]. Infrequently uses lorazepam for panic symptoms. Reports some improvement with the clonidine. # Migraines: Per chart review has had 2 ED visits due to severe headaches. Follows with Dr. Troy with neurology. Trialed sumatriptan however made her nauseous. Continue butalbital, APAP, and caffeine tablet. 04/29/2024 Other insomnia (ICD-10 - G47.09) Patient is here for weight management follow-up. We focused on significance of healthy lifestyle changes. We talked about need to track steps with goal between 6000-10,000 steps daily, focus on portion control, read food labels, get adequate sleep between 7 to 8 hours, get adequate rest to the body, meditate, frequent nutritious meals including vegetables and healthy choices of lean meats, fish, and elimination of refined carbohydrates. We also talked about mindfulness and mindful eating. Particular focus was on continuing to improve diet and increase physical activity as well as reducing alcohol consumption. Total time spent with 30 minutes with greater than 50% spent on counseling and coordinating care. 11/30/2023:Weight 184, BMI 32 Extensively educated on lifestyle modifications including high-protein foods, low carbohydrate snacks, healthy fats, sleep hygiene, stress reduction. Provided with educational documentation in regards to all of this. Discussed cortisol manager [place] for sleep. Options limited for medication secondary to Medicare. Discussed Contrave which patient would like to avoid because she does drink alcohol on occasion. Avoid phentermine due to age. Patient also has a history of insomnia/difficulty sleeping. Will obtain blood work for physical in 4 weeks. 01/03/2024: Weight 184, BMI 32.7. Patient's weight has plateaued since consultation last visit. She is still working on lifestyle. Hesitant to start GLP-1 secondary to patient's concern for hair loss. Is going to contact her health insurance to see if they cover medication such as Wegovy or Zepbound. Otherwise, discussed [id number] options but patient states that this is a challenge for her to afford. Continue to encourage that she is able to do this with lifestyle alone with consistency. 02/28/24: Weight 186, BMI 32. Patient is going to contact her health insurance to see if they cover medication such as Zepbound or Wegovy and with the [id number] cost looks like. Avoid Contrave due to other psychiatric medications.Avoid phentermine secondary to history of hypertension, Continue to encourage lifestyle, Body scan showing 2 pounds of increased fat, but also 2 pounds of increased muscle. 04/01/2024: Weight 189 pounds, BMI 33.48. Currently not on weight loss medication. She is not a good candidate for Contrave given concomitant psychiatric medications. Would avoid phentermine given history of hypertension. Discussed Wegovy and Zepbound and patient will contact insurance to understand which medication may be covered by plan. Reviewed goals of lifestyle including diet and exercise. Plan to follow-up in approximately 1 month for further management. 04/29/2024: Weight 183 pounds, BMI 32.41. Seca scan completed today and interpreted with patient. She is down approximately 6 pounds from last visit. Prior authorization for Wegovy denied by insurance. Otherwise has been implementing lifestyle modifications including exercise. Reviewed goals of diet and hydration of 60 to 80 ounces daily. At this time we will trial Contrave 8-90 mg. Discussed proper use of the medication and potential side effect profile including but not limited to headache, dizziness, dry mouth, and GI upset. Advised that medication requires a prior authorization which can take 2 to 4 weeks. If medication is uncovered she will pay as much as $99 per month through [email or web address]. Patient understanding. She will follow-up in office in 4 weeks for further management. # Osteoporosis of forearm and femoral head/hip: Taking vitamin D/calcium. Finding in 2022 with plan to repeat in next 1 to 2 years. Not interested in medication for treatment of osteoporosis at this time. # Hypertension: BP 118/76. Continue amlodipine 5 mg once daily. No longer taking clonidine. Discussed red flag signs of hypertension clinic but not limited to headache, blurry vision, chest pain, difficulty breathing, dizziness, or weakness. Will continue to monitor. # Asthma: Currently well-controlled without maintenance inhalers. Continue albuterol sulfate as needed. # Bipolar disorder: History of 2 prior hospitalizations. Currently stable on current regimen followed by psychiatry through [facility]. # Insomnia: Continue trazodone and gabapentin. Medications managed by psychiatry. # Hyperlipidemia: Total cholesterol on 12/06/2023 with LDL 107. Reviewed importance of lifestyle to help lower cholesterol and prevent other comorbidities. Will repeat lipid panel in 6 months and consider statin if increased. Discussed importance of incorporating fish oil. # Anxiety: Stable at this time, managed with psychiatry through [facility]. Infrequently uses lorazepam for panic symptoms. Reports some improvement with the clonidine. # Migraines: Per chart review has had 2 ED visits due to severe headaches. Follows with Dr. Troy with neurology. Trialed sumatriptan however made her nauseous. Continue butalbital, APAP, and caffeine tablet. All questions have been answered to patient's satisfaction. Patient verbalized understanding of diagnosis and treatments explained. Advised to call sooner prior to next visit it any questions/concerns arise. Case discussed with collaborating physician Hudson Vela who reviewed the assessment and plan. Chart, medications, labs, vital signs reviewed. Dictation was accomplished with the use of [employer] voice recognition software, which is prone to medical misidentifications and grammatical errors. This are unintentional and the practitioner does try to identify and correct these, but some could still be present. Please do not hesitate to contact practitioner for clarification. 06/24/2024 Other insomnia (ICD-10 - G47.09) Patient is here for weight management follow-up. We focused on significance of healthy lifestyle changes. We talked about need to track steps with goal between 6000-10,000 steps daily, focus on portion control, read food labels, get adequate sleep between 7 to 8 hours, get adequate rest to the body, meditate, frequent nutritious meals including vegetables and healthy choices of lean meats, fish, and elimination of refined carbohydrates. We also talked about mindfulness and mindful eating. Particular focus was on continuing to practice portion control and implement physical activity. Total time spent with 30 minutes with greater than 50% spent on counseling and coordinating care. 11/30/2023:Weight 184, BMI 32 Extensively educated on lifestyle modifications including high-protein foods, low carbohydrate snacks, healthy fats, sleep hygiene, stress reduction. Provided with educational documentation in regards to all of this. Discussed cortisol manager [place] for sleep. Options limited for medication secondary to Medicare. Discussed Contrave which patient would like to avoid because she does drink alcohol on occasion. Avoid phentermine due to age. Patient also has a history of insomnia/difficulty sleeping. Will obtain blood work for physical in 4 weeks. 01/03/2024: Weight 184, BMI 32.7. Patient's weight has plateaued since consultation last visit. She is still working on lifestyle. Hesitant to start GLP-1 secondary to patient's concern for hair loss. Is going to contact her health insurance to see if they cover medication such as Wegovy or Zepbound. Otherwise, discussed [id number] options but patient states that this is a challenge for her to afford. Continue to encourage that she is able to do this with lifestyle alone with consistency. 02/28/24: Weight 186, BMI 32. Patient is going to contact her health insurance to see if they cover medication such as Zepbound or Wegovy and with the [id number] cost looks like. Avoid Contrave due to other psychiatric medications.Avoid phentermine secondary to history of hypertension, Continue to encourage lifestyle, Body scan showing 2 pounds of increased fat, but also 2 pounds of increased muscle. 04/01/2024: Weight 189 pounds, BMI 33.48. Currently not on weight loss medication. She is not a good candidate for Contrave given concomitant psychiatric medications. Would avoid phentermine given history of hypertension. Discussed Wegovy and Zepbound and patient will contact insurance to understand which medication may be covered by plan. Reviewed goals of lifestyle including diet and exercise. Plan to follow-up in approximately 1 month for further management. 04/29/2024: Weight 183 pounds, BMI 32.41. Seca scan completed today and interpreted with patient. She is down approximately 6 pounds from last visit. Prior authorization for Wegovy denied by insurance. Otherwise has been implementing lifestyle modifications including exercise. Reviewed goals of diet and hydration of 60 to 80 ounces daily. At this time we will trial Contrave 8-90 mg. Discussed proper use of the medication and potential side effect profile including but not limited to headache, dizziness, dry mouth, and GI upset. Advised that medication requires a prior authorization which can take 2 to 4 weeks. If medication is uncovered she will pay as much as $99 per month through [email or web address]. Patient understanding. She will follow-up in office in 4 weeks for further management. 05/27/2024: Weight 183 pounds, BMI 32.41. Seca scan completed today and interpreted with the patient. Patient's weight has been stable since last visit. Is now going to retrial Contrave, tried a couple doses however had a headache. Reviewed goals of diet and exercise as well as hydration 60 to 80 ounces daily. She will follow-up in office in approximately 4 weeks at which time we will reevaluate progress. 06/24/2024: Weight 177 pounds, BMI 31.35. SECA scan completed today and interpreted with the patient. Patient is down about 6 pounds from last visit. She is down 4 pounds of fat mass and has increased amounts of muscle mass. Waist circumference has decreased by 2 inches. Patient is no longer on Contrave due to adverse effects of dizziness and sensation of off balance. At this time not on medication. Insurance not covering GLP-1 medications. We discussed use of compounded medications including compounded tirzepatide and semaglutide. Patient will have discussion with her and get back to our office regarding plan of action. Otherwise we reviewed goals of diet and exercise as well as hydration 60 to 80 ounces daily. Plan is to follow-up for weight management in 4 weeks for further assessment. # Osteoporosis of forearm and femoral head/hip: Taking vitamin D/calcium. Finding in 2022 with plan to repeat in next 1 to 2 years. Not interested in medication for treatment of osteoporosis at this time. # Hypertension: BP (). Continue amlodipine 5 mg once daily. No longer taking clonidine. Discussed red flag signs of hypertension clinic but not limited to headache, blurry vision, chest pain, difficulty breathing, dizziness, or weakness. Will continue to monitor. # Asthma: Currently well-controlled without maintenance inhalers. Continue albuterol sulfate as needed. # Bipolar disorder: History of 2 prior hospitalizations. Currently stable on current regimen followed by psychiatry through [facility]. # Insomnia: Continue trazodone and gabapentin. Medications managed by psychiatry. # Hyperlipidemia: Total cholesterol on 12/06/2023 with LDL 107. Reviewed importance of lifestyle to help lower cholesterol and prevent other comorbidities. Will repeat lipid panel at next f/u and consider statin if increased. Discussed importance of incorporating fish oil. # Anxiety: Stable at this time, managed with psychiatry through [facility]. Infrequently uses lorazepam for panic symptoms. Reports some improvement with the clonidine. # Migraines: Per chart review has had 2 ED visits due to severe headaches. Follows with Dr. Troy with neurology. Trialed sumatriptan however made her nauseous. Continue butalbital, APAP, and caffeine tablet. # Preventative medicine: Patient recently updated her Shingrix vaccine. Had first dose in series however this was a few years ago and now has to restart series. Will complete second dose in approximately 2 to 6 months. Also recently updated COVID booster. All questions have been answered to patient's satisfaction. Patient verbalized understanding of diagnosis and treatments explained. Advised to call sooner prior to next visit it any questions/concerns arise. Case discussed with collaborating physician Hudson Vela who reviewed the assessment and plan. Chart, medications, labs, vital signs reviewed. Dictation was accomplished with the use of [employer] voice recognition software, which is prone to medical misidentifications and grammatical errors. This are unintentional and the practitioner does try to identify and correct these, but some could still be present. Please do not hesitate to contact practitioner for clarification. 05/27/2024 Mild intermittent asthma without complication (ICD-10 - J45.20) Patient is here for weight management follow-up. We focused on significance of healthy lifestyle changes. We talked about need to track steps with goal between 6000-10,000 steps daily, focus on portion control, read food labels, get adequate sleep between 7 to 8 hours, get adequate rest to the body, meditate, frequent nutritious meals including vegetables and healthy choices of lean meats, fish, and elimination of refined carbohydrates. We also talked about mindfulness and mindful eating. Particular focus was on continuing to improve diet and increase physical activity as well as reducing alcohol consumption. Total time spent with 30 minutes with greater than 50% spent on counseling and coordinating care. 11/30/2023:Weight 184, BMI 32 Extensively educated on lifestyle modifications including high-protein foods, low carbohydrate snacks, healthy fats, sleep hygiene, stress reduction. Provided with educational documentation in regards to all of this. Discussed cortisol manager [place] for sleep. Options limited for medication secondary to Medicare. Discussed Contrave which patient would like to avoid because she does drink alcohol on occasion. Avoid phentermine due to age. Patient also has a history of insomnia/difficulty sleeping. Will obtain blood work for physical in 4 weeks. 01/03/2024: Weight 184, BMI 32.7. Patient's weight has plateaued since consultation last visit. She is still working on lifestyle. Hesitant to start GLP-1 secondary to patient's concern for hair loss. Is going to contact her health insurance to see if they cover medication such as Wegovy or Zepbound. Otherwise, discussed [id number] options but patient states that this is a challenge for her to afford. Continue to encourage that she is able to do this with lifestyle alone with consistency. 02/28/24: Weight 186, BMI 32. Patient is going to contact her health insurance to see if they cover medication such as Zepbound or Wegovy and with the [id number] cost looks like. Avoid Contrave due to other psychiatric medications.Avoid phentermine secondary to history of hypertension, Continue to encourage lifestyle, Body scan showing 2 pounds of increased fat, but also 2 pounds of increased muscle. 04/01/2024: Weight 189 pounds, BMI 33.48. Currently not on weight loss medication. She is not a good candidate for Contrave given concomitant psychiatric medications. Would avoid phentermine given history of hypertension. Discussed Wegovy and Zepbound and patient will contact insurance to understand which medication may be covered by plan. Reviewed goals of lifestyle including diet and exercise. Plan to follow-up in approximately 1 month for further management. 04/29/2024: Weight 183 pounds, BMI 32.41. Seca scan completed today and interpreted with patient. She is down approximately 6 pounds from last visit. Prior authorization for Wegovy denied by insurance. Otherwise has been implementing lifestyle modifications including exercise. Reviewed goals of diet and hydration of 60 to 80 ounces daily. At this time we will trial Contrave 8-90 mg. Discussed proper use of the medication and potential side effect profile including but not limited to headache, dizziness, dry mouth, and GI upset. Advised that medication requires a prior authorization which can take 2 to 4 weeks. If medication is uncovered she will pay as much as $99 per month through [email or web address]. Patient understanding. She will follow-up in office in 4 weeks for further management. 05/27/2024: Weight 183 pounds, BMI 32.41. Seca scan completed today and interpreted with the patient. Patient's weight has been stable since last visit. Is now going to retrial Contrave, tried a couple doses however had a headache. Reviewed goals of diet and exercise as well as hydration 60 to 80 ounces daily. She will follow-up in office in approximately 4 weeks at which time we will reevaluate progress. # Osteoporosis of forearm and femoral head/hip: Taking vitamin D/calcium. Finding in 2022 with plan to repeat in next 1 to 2 years. Not interested in medication for treatment of osteoporosis at this time. # Hypertension: BP 128/88. Continue amlodipine 5 mg once daily. No longer taking clonidine. Discussed red flag signs of hypertension clinic but not limited to headache, blurry vision, chest pain, difficulty breathing, dizziness, or weakness. Will continue to monitor. # Asthma: Currently well-controlled without maintenance inhalers. Continue albuterol sulfate as needed. # Bipolar disorder: History of 2 prior hospitalizations. Currently stable on current regimen followed by psychiatry through [facility]. # Insomnia: Continue trazodone and gabapentin. Medications managed by psychiatry. # Hyperlipidemia: Total cholesterol on 12/06/2023 with LDL 107. Reviewed importance of lifestyle to help lower cholesterol and prevent other comorbidities. Will repeat lipid panel in 6 months and consider statin if increased. Discussed importance of incorporating fish oil. # Anxiety: Stable at this time, managed with psychiatry through [facility]. Infrequently uses lorazepam for panic symptoms. Reports some improvement with the clonidine. # Migraines: Per chart review has had 2 ED visits due to severe headaches. Follows with Dr. Troy with neurology. Trialed sumatriptan however made her nauseous. Continue butalbital, APAP, and caffeine tablet. All questions have been answered to patient's satisfaction. Patient verbalized understanding of diagnosis and treatments explained. Advised to call sooner prior to next visit it any questions/concerns arise. Case discussed with collaborating physician Hudson Vela who reviewed the assessment and plan. Chart, medications, labs, vital signs reviewed. Dictation was accomplished with the use of [employer] voice recognition software, which is prone to medical misidentifications and grammatical errors. This are unintentional and the practitioner does try to identify and correct these, but some could still be present. Please do not hesitate to contact practitioner for clarification. 06/26/2024 Anxiety (ICD-10 - F41.9) Wendi is a 64-year-old male with a of multiple medical conditions who presents today for follow-up today of hyperlipidemia. Cardiopulmonary exam unremarkable. Patient will follow-up in office for her annual exam in December with updated labs. # Hyperlipidemia: Updated lipid panel on with total cholesterol 229, HDL 91, triglycerides 86, LDL 119. LDL and total cholesterol have slightly increased from labs in November. Low ASCVD risk less than 10%, no indication for statin at this time. Discussed other measures of lowering cholesterol including incorporating fiber in diet, regular vitamin D intake, use of turmeric supplements, fish oil which she currently takes, as well as maintaining regular physical activity. Patient understanding and will reevaluate lipid panel at her next visit in December. # Hypertension: BP 122/80. Continue amlodipine 5 mg once daily. No longer taking clonidine. Discussed red flag signs of hypertension clinic but not limited to headache, blurry vision, chest pain, difficulty breathing, dizziness, or weakness. Will continue to monitor. # Asthma: Currently well-controlled without maintenance inhalers. Continue albuterol sulfate as needed. # Bipolar disorder: History of 2 prior hospitalizations. Currently stable on current regimen followed by psychiatry through [facility]. # Insomnia: Continue trazodone and gabapentin. Medications managed by psychiatry. # Anxiety: Stable at this time, managed with psychiatry through [facility]. Infrequently uses lorazepam for panic symptoms. Reports some improvement with the clonidine. # Migraines: Per chart review has had 2 ED visits due to severe headaches. Follows with Dr. Troy with neurology. Trialed sumatriptan however made her nauseous. Continue butalbital, APAP, and caffeine tablet. # Obesity: Weight 177 pounds, BMI 31.35. Patient established in weight management program, next follow-up on 07/25/2024. Will continue to monitor. All questions have been answered to patient's satisfaction. Patient verbalized understanding of diagnosis and treatments explained. Advised to call sooner prior to next visit it any questions/concerns arise. Case discussed with collaborating physician Hudson Vela who reviewed the assessment and plan. Chart, medications, labs, vital signs reviewed. Dictation was accomplished with the use of [employer] voice recognition software, which is prone to medical misidentifications and grammatical errors. This are unintentional and the practitioner does try to identify and correct these, but some could still be present. Please do not hesitate to contact practitioner for clarification. 01/07/2025 Advance care planning (ICD-10 - Z71.89) Patient is here for a Medicare wellness visit. Complete paperwork was reviewed and updated and has been filed and scanned. Depression screen completed. Alcohol AUDIT SCREEN completed. Obesity screen completed. Cardiovascular risk stratification screen completed. # Hyperlipidemia: Lipid panel updated on 01/03/2025 with values of total cholesterol 220, triglycerides 55, LDL 103, HDL 106. ASCVD risk of 5.4%, moderate intensity statin is recommended. Patient centered discussion had today regarding ongoing treatment for hyperlipidemia, at this time patient states that she would prefer to not go on statin and continue to prioritize lifestyle. Discussed other measures of lowering cholesterol including incorporating fiber in diet, regular vitamin D intake, use of turmeric supplements, fish oil which she currently takes, as well as maintaining regular physical activity. # Hypertension: BP stable in office. Continue amlodipine 5 mg once daily. No longer taking clonidine. Discussed red flag signs of hypertension clinic but not limited to headache, blurry vision, chest pain, difficulty breathing, dizziness, or weakness. Will continue to monitor. # Asthma: Currently well-controlled without maintenance inhalers. Continue albuterol sulfate as needed. # Bipolar II disorder: Last televisit with psychiatry on 05/13/2024. Per specialist note review, mood symptoms are well-managed. She reports some sleep issues but is satisfied with trazodone and will work on sleep hygiene. Psychiatric evaluation is without wilfredo, psychosis, delusions, or OCD behaviors. Denies SI or HI. No previous history of suicidal attempts. Plan with specialist is to continue Ativan 0.5 mg daily as needed for anxiety, trazodone 225 to 300 mg nightly for sleep as needed, and to decrease gabapentin 800 mg from 3 times daily to 2 times daily. # Insomnia: Continue trazodone 225 to 300 mg once nightly as needed for sleep. Continue to practice good sleep hygiene. # Anxiety: Stable at this time, managed with psychiatry through [facility]. Infrequently uses lorazepam for panic symptoms. Reports some improvement with the clonidine. # Migraines: Per chart review has had 2 ED visits due to severe headaches. Follows with Dr. Troy with neurology. Trialed sumatriptan however made her nauseous. Continue butalbital, APAP, and caffeine tablet. # Obesity: Weight 186 pounds, BMI 32.94. Discussed lifestyle modifications to treat underlying obesity. Patient has been improving her diet. She is down 4 pounds from her last visit in October. Continue to monitor. # Preventative medicine: Patient up-to-date on all vaccinations. Mammogram updated November 2024. Updated bone mineral density scan is scheduled. # Advance care planning: Discussed and provided forms today for healthcare proxy and MOLST. Cognition assessed and within reasonable limits Fall risk assessed. Discussed healthcare proxy. Discussed [place] order for life sustaining treatment, end-of-life issues, intubation and resuscitation dialysis artificial nutrition and hydration is appropriate. We discussed [place] order for life sustaining treatment and healthcare proxy. We discussed need for resuscitation, intubation, ventilation, need for dialysis, short-term versus long-term, nutrition, IV nutrition and hydration. Total time spent was 45 minutes with greater than 50% spent on counseling and coordinating care All questions have been answered to patient's satisfaction. Patient verbalized understanding of diagnosis and treatments explained. Advised to call sooner prior to next visit it any questions/concerns arise. Case discussed with collaborating physician Hudson Vela who reviewed the assessment and plan. Chart, medications, labs, vital signs reviewed. Dictation was accomplished with the use of [employer] voice recognition software, which is prone to medical misidentifications and grammatical errors. This are unintentional and the practitioner does try to identify and correct these, but some could still be present. Please do not hesitate to contact practitioner for clarification. 01/07/2025 Primary hypertension (ICD-10 - I10) Patient is here for a Medicare wellness visit. Complete paperwork was reviewed and updated and has been filed and scanned. Depression screen completed. Alcohol AUDIT SCREEN completed. Obesity screen completed. Cardiovascular risk stratification screen completed. # Hyperlipidemia: Lipid panel updated on 01/03/2025 with values of total cholesterol 220, triglycerides 55, LDL 103, HDL 106. ASCVD risk of 5.4%, moderate intensity statin is recommended. Patient centered discussion had today regarding ongoing treatment for hyperlipidemia, at this time patient states that she would prefer to not go on statin and continue to prioritize lifestyle. Discussed other measures of lowering cholesterol including incorporating fiber in diet, regular vitamin D intake, use of turmeric supplements, fish oil which she currently takes, as well as maintaining regular physical activity. # Hypertension: BP stable in office. Continue amlodipine 5 mg once daily. No longer taking clonidine. Discussed red flag signs of hypertension clinic but not limited to headache, blurry vision, chest pain, difficulty breathing, dizziness, or weakness. Will continue to monitor. # Asthma: Currently well-controlled without maintenance inhalers. Continue albuterol sulfate as needed. # Bipolar II disorder: Last televisit with psychiatry on 05/13/2024. Per specialist note review, mood symptoms are well-managed. She reports some sleep issues but is satisfied with trazodone and will work on sleep hygiene. Psychiatric evaluation is without wilfredo, psychosis, delusions, or OCD behaviors. Denies SI or HI. No previous history of suicidal attempts. Plan with specialist is to continue Ativan 0.5 mg daily as needed for anxiety, trazodone 225 to 300 mg nightly for sleep as needed, and to decrease gabapentin 800 mg from 3 times daily to 2 times daily. # Insomnia: Continue trazodone 225 to 300 mg once nightly as needed for sleep. Continue to practice good sleep hygiene. # Anxiety: Stable at this time, managed with psychiatry through [facility]. Infrequently uses lorazepam for panic symptoms. Reports some improvement with the clonidine. # Migraines: Per chart review has had 2 ED visits due to severe headaches. Follows with Dr. Troy with neurology. Trialed sumatriptan however made her nauseous. Continue butalbital, APAP, and caffeine tablet. # Obesity: Weight 186 pounds, BMI 32.94. Discussed lifestyle modifications to treat underlying obesity. Patient has been improving her diet. She is down 4 pounds from her last visit in October. Continue to monitor. # Preventative medicine: Patient up-to-date on all vaccinations. Mammogram updated November 2024. Updated bone mineral density scan is scheduled. # Advance care planning: Discussed and provided forms today for healthcare proxy and MOLST. Cognition assessed and within reasonable limits Fall risk assessed. Discussed healthcare proxy. Discussed [place] order for life sustaining treatment, end-of-life issues, intubation and resuscitation dialysis artificial nutrition and hydration is appropriate. We discussed [place] order for life sustaining treatment and healthcare proxy. We discussed need for resuscitation, intubation, ventilation, need for dialysis, short-term versus long-term, nutrition, IV nutrition and hydration. Total time spent was 45 minutes with greater than 50% spent on counseling and coordinating care All questions have been answered to patient's satisfaction. Patient verbalized understanding of diagnosis and treatments explained. Advised to call sooner prior to next visit it any questions/concerns arise. Case discussed with collaborating physician Hudson Vela who reviewed the assessment and plan. Chart, medications, labs, vital signs reviewed. Dictation was accomplished with the use of [employer] voice recognition software, which is prone to medical misidentifications and grammatical errors. This are unintentional and the practitioner does try to identify and correct these, but some could still be present. Please do not hesitate to contact practitioner for clarification. 06/26/2024 Episodic migraine (ICD-10 - G43.909) Wendi is a 64-year-old male with a of multiple medical conditions who presents today for follow-up today of hyperlipidemia. Cardiopulmonary exam unremarkable. Patient will follow-up in office for her annual exam in December with updated labs. # Hyperlipidemia: Updated lipid panel on with total cholesterol 229, HDL 91, triglycerides 86, LDL 119. LDL and total cholesterol have slightly increased from labs in November. Low ASCVD risk less than 10%, no indication for statin at this time. Discussed other measures of lowering cholesterol including incorporating fiber in diet, regular vitamin D intake, use of turmeric supplements, fish oil which she currently takes, as well as maintaining regular physical activity. Patient understanding and will reevaluate lipid panel at her next visit in December. # Hypertension: BP 122/80. Continue amlodipine 5 mg once daily. No longer taking clonidine. Discussed red flag signs of hypertension clinic but not limited to headache, blurry vision, chest pain, difficulty breathing, dizziness, or weakness. Will continue to monitor. # Asthma: Currently well-controlled without maintenance inhalers. Continue albuterol sulfate as needed. # Bipolar disorder: History of 2 prior hospitalizations. Currently stable on current regimen followed by psychiatry through [facility]. # Insomnia: Continue trazodone and gabapentin. Medications managed by psychiatry. # Anxiety: Stable at this time, managed with psychiatry through [facility]. Infrequently uses lorazepam for panic symptoms. Reports some improvement with the clonidine. # Migraines: Per chart review has had 2 ED visits due to severe headaches. Follows with Dr. Troy with neurology. Trialed sumatriptan however made her nauseous. Continue butalbital, APAP, and caffeine tablet. # Obesity: Weight 177 pounds, BMI 31.35. Patient established in weight management program, next follow-up on 07/25/2024. Will continue to monitor. All questions have been answered to patient's satisfaction. Patient verbalized understanding of diagnosis and treatments explained. Advised to call sooner prior to next visit it any questions/concerns arise. Case discussed with collaborating physician Hudson Vela who reviewed the assessment and plan. Chart, medications, labs, vital signs reviewed. Dictation was accomplished with the use of [employer] voice recognition software, which is prone to medical misidentifications and grammatical errors. This are unintentional and the practitioner does try to identify and correct these, but some could still be present. Please do not hesitate to contact practitioner for clarification. 06/24/2024 Hyperlipidemia, unspecified hyperlipidemia type (ICD-10 - E78.5) Patient is here for weight management follow-up. We focused on significance of healthy lifestyle changes. We talked about need to track steps with goal between 6000-10,000 steps daily, focus on portion control, read food labels, get adequate sleep between 7 to 8 hours, get adequate rest to the body, meditate, frequent nutritious meals including vegetables and healthy choices of lean meats, fish, and elimination of refined carbohydrates. We also talked about mindfulness and mindful eating. Particular focus was on continuing to practice portion control and implement physical activity. Total time spent with 30 minutes with greater than 50% spent on counseling and coordinating care. 11/30/2023:Weight 184, BMI 32 Extensively educated on lifestyle modifications including high-protein foods, low carbohydrate snacks, healthy fats, sleep hygiene, stress reduction. Provided with educational documentation in regards to all of this. Discussed cortisol manager [place] for sleep. Options limited for medication secondary to Medicare. Discussed Contrave which patient would like to avoid because she does drink alcohol on occasion. Avoid phentermine due to age. Patient also has a history of insomnia/difficulty sleeping. Will obtain blood work for physical in 4 weeks. 01/03/2024: Weight 184, BMI 32.7. Patient's weight has plateaued since consultation last visit. She is still working on lifestyle. Hesitant to start GLP-1 secondary to patient's concern for hair loss. Is going to contact her health insurance to see if they cover medication such as Wegovy or Zepbound. Otherwise, discussed [id number] options but patient states that this is a challenge for her to afford. Continue to encourage that she is able to do this with lifestyle alone with consistency. 02/28/24: Weight 186, BMI 32. Patient is going to contact her health insurance to see if they cover medication such as Zepbound or Wegovy and with the [id number] cost looks like. Avoid Contrave due to other psychiatric medications.Avoid phentermine secondary to history of hypertension, Continue to encourage lifestyle, Body scan showing 2 pounds of increased fat, but also 2 pounds of increased muscle. 04/01/2024: Weight 189 pounds, BMI 33.48. Currently not on weight loss medication. She is not a good candidate for Contrave given concomitant psychiatric medications. Would avoid phentermine given history of hypertension. Discussed Wegovy and Zepbound and patient will contact insurance to understand which medication may be covered by plan. Reviewed goals of lifestyle including diet and exercise. Plan to follow-up in approximately 1 month for further management. 04/29/2024: Weight 183 pounds, BMI 32.41. Seca scan completed today and interpreted with patient. She is down approximately 6 pounds from last visit. Prior authorization for Wegovy denied by insurance. Otherwise has been implementing lifestyle modifications including exercise. Reviewed goals of diet and hydration of 60 to 80 ounces daily. At this time we will trial Contrave 8-90 mg. Discussed proper use of the medication and potential side effect profile including but not limited to headache, dizziness, dry mouth, and GI upset. Advised that medication requires a prior authorization which can take 2 to 4 weeks. If medication is uncovered she will pay as much as $99 per month through [email or web address]. Patient understanding. She will follow-up in office in 4 weeks for further management. 05/27/2024: Weight 183 pounds, BMI 32.41. Seca scan completed today and interpreted with the patient. Patient's weight has been stable since last visit. Is now going to retrial Contrave, tried a couple doses however had a headache. Reviewed goals of diet and exercise as well as hydration 60 to 80 ounces daily. She will follow-up in office in approximately 4 weeks at which time we will reevaluate progress. 06/24/2024: Weight 177 pounds, BMI 31.35. SECA scan completed today and interpreted with the patient. Patient is down about 6 pounds from last visit. She is down 4 pounds of fat mass and has increased amounts of muscle mass. Waist circumference has decreased by 2 inches. Patient is no longer on Contrave due to adverse effects of dizziness and sensation of off balance. At this time not on medication. Insurance not covering GLP-1 medications. We discussed use of compounded medications including compounded tirzepatide and semaglutide. Patient will have discussion with her and get back to our office regarding plan of action. Otherwise we reviewed goals of diet and exercise as well as hydration 60 to 80 ounces daily. Plan is to follow-up for weight management in 4 weeks for further assessment. # Osteoporosis of forearm and femoral head/hip: Taking vitamin D/calcium. Finding in 2022 with plan to repeat in next 1 to 2 years. Not interested in medication for treatment of osteoporosis at this time. # Hypertension: BP (). Continue amlodipine 5 mg once daily. No longer taking clonidine. Discussed red flag signs of hypertension clinic but not limited to headache, blurry vision, chest pain, difficulty breathing, dizziness, or weakness. Will continue to monitor. # Asthma: Currently well-controlled without maintenance inhalers. Continue albuterol sulfate as needed. # Bipolar disorder: History of 2 prior hospitalizations. Currently stable on current regimen followed by psychiatry through [facility]. # Insomnia: Continue trazodone and gabapentin. Medications managed by psychiatry. # Hyperlipidemia: Total cholesterol on 12/06/2023 with LDL 107. Reviewed importance of lifestyle to help lower cholesterol and prevent other comorbidities. Will repeat lipid panel at next f/u and consider statin if increased. Discussed importance of incorporating fish oil. # Anxiety: Stable at this time, managed with psychiatry through [facility]. Infrequently uses lorazepam for panic symptoms. Reports some improvement with the clonidine. # Migraines: Per chart review has had 2 ED visits due to severe headaches. Follows with Dr. Troy with neurology. Trialed sumatriptan however made her nauseous. Continue butalbital, APAP, and caffeine tablet. # Preventative medicine: Patient recently updated her Shingrix vaccine. Had first dose in series however this was a few years ago and now has to restart series. Will complete second dose in approximately 2 to 6 months. Also recently updated COVID booster. All questions have been answered to patient's satisfaction. Patient verbalized understanding of diagnosis and treatments explained. Advised to call sooner prior to next visit it any questions/concerns arise. Case discussed with collaborating physician Hudson Vela who reviewed the assessment and plan. Chart, medications, labs, vital signs reviewed. Dictation was accomplished with the use of [employer] voice recognition software, which is prone to medical misidentifications and grammatical errors. This are unintentional and the practitioner does try to identify and correct these, but some could still be present. Please do not hesitate to contact practitioner for clarification. 04/29/2024 Hyperlipidemia, unspecified hyperlipidemia type (ICD-10 - E78.5) Patient is here for weight management follow-up. We focused on significance of healthy lifestyle changes. We talked about need to track steps with goal between 6000-10,000 steps daily, focus on portion control, read food labels, get adequate sleep between 7 to 8 hours, get adequate rest to the body, meditate, frequent nutritious meals including vegetables and healthy choices of lean meats, fish, and elimination of refined carbohydrates. We also talked about mindfulness and mindful eating. Particular focus was on continuing to improve diet and increase physical activity as well as reducing alcohol consumption. Total time spent with 30 minutes with greater than 50% spent on counseling and coordinating care. 11/30/2023:Weight 184, BMI 32 Extensively educated on lifestyle modifications including high-protein foods, low carbohydrate snacks, healthy fats, sleep hygiene, stress reduction. Provided with educational documentation in regards to all of this. Discussed cortisol [place] for sleep. Options limited for medication secondary to Medicare. Discussed Contrave which patient would like to avoid because she does drink alcohol on occasion. Avoid phentermine due to age. Patient also has a history of insomnia/difficulty sleeping. Will obtain blood work for physical in 4 weeks. 01/03/2024: Weight 184, BMI 32.7. Patient's weight has plateaued since consultation last visit. She is still working on lifestyle. Hesitant to start GLP-1 secondary to patient's concern for hair loss. Is going to contact her health insurance to see if they cover medication such as Wegovy or Zepbound. Otherwise, discussed [id number] options but patient states that this is a challenge for her to afford. Continue to encourage that she is able to do this with lifestyle alone with consistency. 02/28/24: Weight 186, BMI 32. Patient is going to contact her health insurance to see if they cover medication such as Zepbound or Wegovy and with the [id number] cost looks like. Avoid Contrave due to other psychiatric medications.Avoid phentermine secondary to history of hypertension, Continue to encourage lifestyle, Body scan showing 2 pounds of increased fat, but also 2 pounds of increased muscle. 04/01/2024: Weight 189 pounds, BMI 33.48. Currently not on weight loss medication. She is not a good candidate for Contrave given concomitant psychiatric medications. Would avoid phentermine given history of hypertension. Discussed Wegovy and Zepbound and patient will contact insurance to understand which medication may be covered by plan. Reviewed goals of lifestyle including diet and exercise. Plan to follow-up in approximately 1 month for further management. 04/29/2024: Weight 183 pounds, BMI 32.41. Seca scan completed today and interpreted with patient. She is down approximately 6 pounds from last visit. Prior authorization for Wegovy denied by insurance. Otherwise has been implementing lifestyle modifications including exercise. Reviewed goals of diet and hydration of 60 to 80 ounces daily. At this time we will trial Contrave 8-90 mg. Discussed proper use of the medication and potential side effect profile including but not limited to headache, dizziness, dry mouth, and GI upset. Advised that medication requires a prior authorization which can take 2 to 4 weeks. If medication is uncovered she will pay as much as $99 per month through [email or web address]. Patient understanding. She will follow-up in office in 4 weeks for further management. # Osteoporosis of forearm and femoral head/hip: Taking vitamin D/calcium. Finding in 2022 with plan to repeat in next 1 to 2 years. Not interested in medication for treatment of osteoporosis at this time. # Hypertension: BP 118/76. Continue amlodipine 5 mg once daily. No longer taking clonidine. Discussed red flag signs of hypertension clinic but not limited to headache, blurry vision, chest pain, difficulty breathing, dizziness, or weakness. Will continue to monitor. # Asthma: Currently well-controlled without maintenance inhalers. Continue albuterol sulfate as needed. # Bipolar disorder: History of 2 prior hospitalizations. Currently stable on current regimen followed by psychiatry through [facility]. # Insomnia: Continue trazodone and gabapentin. Medications managed by psychiatry. # Hyperlipidemia: Total cholesterol on 12/06/2023 with LDL 107. Reviewed importance of lifestyle to help lower cholesterol and prevent other comorbidities. Will repeat lipid panel in 6 months and consider statin if increased. Discussed importance of incorporating fish oil. # Anxiety: Stable at this time, managed with psychiatry through [facility]. Infrequently uses lorazepam for panic symptoms. Reports some improvement with the clonidine. # Migraines: Per chart review has had 2 ED visits due to severe headaches. Follows with Dr. Troy with neurology. Trialed sumatriptan however made her nauseous. Continue butalbital, APAP, and caffeine tablet. All questions have been answered to patient's satisfaction. Patient verbalized understanding of diagnosis and treatments explained. Advised to call sooner prior to next visit it any questions/concerns arise. Case discussed with collaborating physician Hudson Vela who reviewed the assessment and plan. Chart, medications, labs, vital signs reviewed. Dictation was accomplished with the use of [employer] voice recognition software, which is prone to medical misidentifications and grammatical errors. This are unintentional and the practitioner does try to identify and correct these, but some could still be present. Please do not hesitate to contact practitioner for clarification. 05/27/2024 Other insomnia (ICD-10 - G47.09) Patient is here for weight management follow-up. We focused on significance of healthy lifestyle changes. We talked about need to track steps with goal between 6000-10,000 steps daily, focus on portion control, read food labels, get adequate sleep between 7 to 8 hours, get adequate rest to the body, meditate, frequent nutritious meals including vegetables and healthy choices of lean meats, fish, and elimination of refined carbohydrates. We also talked about mindfulness and mindful eating. Particular focus was on continuing to improve diet and increase physical activity as well as reducing alcohol consumption. Total time spent with 30 minutes with greater than 50% spent on counseling and coordinating care. 11/30/2023:Weight 184, BMI 32 Extensively educated on lifestyle modifications including high-protein foods, low carbohydrate snacks, healthy fats, sleep hygiene, stress reduction. Provided with educational documentation in regards to all of this. Discussed cortisol manager [place] for sleep. Options limited for medication secondary to Medicare. Discussed Contrave which patient would like to avoid because she does drink alcohol on occasion. Avoid phentermine due to age. Patient also has a history of insomnia/difficulty sleeping. Will obtain blood work for physical in 4 weeks. 01/03/2024: Weight 184, BMI 32.7. Patient's weight has plateaued since consultation last visit. She is still working on lifestyle. Hesitant to start GLP-1 secondary to patient's concern for hair loss. Is going to contact her health insurance to see if they cover medication such as Wegovy or Zepbound. Otherwise, discussed [id number] options but patient states that this is a challenge for her to afford. Continue to encourage that she is able to do this with lifestyle alone with consistency. 02/28/24: Weight 186, BMI 32. Patient is going to contact her health insurance to see if they cover medication such as Zepbound or Wegovy and with the [id number] cost looks like. Avoid Contrave due to other psychiatric medications.Avoid phentermine secondary to history of hypertension, Continue to encourage lifestyle, Body scan showing 2 pounds of increased fat, but also 2 pounds of increased muscle. 04/01/2024: Weight 189 pounds, BMI 33.48. Currently not on weight loss medication. She is not a good candidate for Contrave given concomitant psychiatric medications. Would avoid phentermine given history of hypertension. Discussed Wegovy and Zepbound and patient will contact insurance to understand which medication may be covered by plan. Reviewed goals of lifestyle including diet and exercise. Plan to follow-up in approximately 1 month for further management. 04/29/2024: Weight 183 pounds, BMI 32.41. Seca scan completed today and interpreted with patient. She is down approximately 6 pounds from last visit. Prior authorization for Wegovy denied by insurance. Otherwise has been implementing lifestyle modifications including exercise. Reviewed goals of diet and hydration of 60 to 80 ounces daily. At this time we will trial Contrave 8-90 mg. Discussed proper use of the medication and potential side effect profile including but not limited to headache, dizziness, dry mouth, and GI upset. Advised that medication requires a prior authorization which can take 2 to 4 weeks. If medication is uncovered she will pay as much as $99 per month through [email or web address]. Patient understanding. She will follow-up in office in 4 weeks for further management. 05/27/2024: Weight 183 pounds, BMI 32.41. Seca scan completed today and interpreted with the patient. Patient's weight has been stable since last visit. Is now going to retrial Contrave, tried a couple doses however had a headache. Reviewed goals of diet and exercise as well as hydration 60 to 80 ounces daily. She will follow-up in office in approximately 4 weeks at which time we will reevaluate progress. # Osteoporosis of forearm and femoral head/hip: Taking vitamin D/calcium. Finding in 2022 with plan to repeat in next 1 to 2 years. Not interested in medication for treatment of osteoporosis at this time. # Hypertension: BP 128/88. Continue amlodipine 5 mg once daily. No longer taking clonidine. Discussed red flag signs of hypertension clinic but not limited to headache, blurry vision, chest pain, difficulty breathing, dizziness, or weakness. Will continue to monitor. # Asthma: Currently well-controlled without maintenance inhalers. Continue albuterol sulfate as needed. # Bipolar disorder: History of 2 prior hospitalizations. Currently stable on current regimen followed by psychiatry through [facility]. # Insomnia: Continue trazodone and gabapentin. Medications managed by psychiatry. # Hyperlipidemia: Total cholesterol on 12/06/2023 with LDL 107. Reviewed importance of lifestyle to help lower cholesterol and prevent other comorbidities. Will repeat lipid panel in 6 months and consider statin if increased. Discussed importance of incorporating fish oil. # Anxiety: Stable at this time, managed with psychiatry through [facility]. Infrequently uses lorazepam for panic symptoms. Reports some improvement with the clonidine. # Migraines: Per chart review has had 2 ED visits due to severe headaches. Follows with Dr. Troy with neurology. Trialed sumatriptan however made her nauseous. Continue butalbital, APAP, and caffeine tablet. All questions have been answered to patient's satisfaction. Patient verbalized understanding of diagnosis and treatments explained. Advised to call sooner prior to next visit it any questions/concerns arise. Case discussed with collaborating physician Hudson Vela who reviewed the assessment and plan. Chart, medications, labs, vital signs reviewed. Dictation was accomplished with the use of [employer] voice recognition software, which is prone to medical misidentifications and grammatical errors. This are unintentional and the practitioner does try to identify and correct these, but some could still be present. Please do not hesitate to contact practitioner for clarification. 04/01/2024 Hyperlipidemia, unspecified hyperlipidemia type (ICD-10 - E78.5) Patient is here for weight management follow-up. We focused on significance of healthy lifestyle changes. We talked about need to track steps with goal between 6000-10,000 steps daily, focus on portion control, read food labels, get adequate sleep between 7 to 8 hours, get adequate rest to the body, meditate, frequent nutritious meals including vegetables and healthy choices of lean meats, fish, and elimination of refined carbohydrates. We also talked about mindfulness and mindful eating. Particular focus was on continuing to improve diet and increase physical activity as well as reducing alcohol consumption. Total time spent with 30 minutes with greater than 50% spent on counseling and coordinating care. 11/30/2023:Weight 184, BMI 32 Extensively educated on lifestyle modifications including high-protein foods, low carbohydrate snacks, healthy fats, sleep hygiene, stress reduction. Provided with educational documentation in regards to all of this. Discussed cortisol [place] for sleep. Options limited for medication secondary to Medicare. Discussed Contrave which patient would like to avoid because she does drink alcohol on occasion. Avoid phentermine due to age. Patient also has a history of insomnia/difficulty sleeping. Will obtain blood work for physical in 4 weeks. 01/03/2024: Weight 184, BMI 32.7. Patient's weight has plateaued since consultation last visit. She is still working on lifestyle. Hesitant to start GLP-1 secondary to patient's concern for hair loss. Is going to contact her health insurance to see if they cover medication such as Wegovy or Zepbound. Otherwise, discussed [id number] options but patient states that this is a challenge for her to afford. Continue to encourage that she is able to do this with lifestyle alone with consistency. 02/28/24: Weight 186, BMI 32. Patient is going to contact her health insurance to see if they cover medication such as Zepbound or Wegovy and with the [id number] cost looks like. Avoid Contrave due to other psychiatric medications.Avoid phentermine secondary to history of hypertension, Continue to encourage lifestyle, Body scan showing 2 pounds of increased fat, but also 2 pounds of increased muscle. 04/01/2024: Weight 189 pounds, BMI 33.48. Currently not on weight loss medication. She is not a good candidate for Contrave given concomitant psychiatric medications. Would avoid phentermine given history of hypertension. Discussed Wegovy and Zepbound and patient will contact insurance to understand which medication may be covered by plan. Reviewed goals of lifestyle including diet and exercise. Plan to follow-up in approximately 1 month for further management. # Left ankle pain: Patient reporting injury to left ankle while she was consuming alcohol, was dressing and had a mechanical fall on her left foot. Reports improvement in pain overall, following up with podiatry tomorrow at [facility] [place] with Dr. Sheldon Spencer. Advised to continue [id number] Tylenol or ibuprofen as needed for pain. Will continue to monitor. # Hot flashes: Reporting on and off sensation of feeling hot then cold. TSH within normal limits at 1.670. She is in menopause at this time. Was previously on hormone replacement therapy however discontinued due to risks associated. Can consider DHEA-S for symptomatic treatment. # Osteoporosis of forearm and femoral head/hip: Taking vitamin D/calcium. Finding in 2022 with plan to repeat in next 1 to 2 years. Not interested in medication for treatment of osteoporosis at this time. # Hypertension: Continue amlodipine 5 mg once daily. No longer taking clonidine. Discussed red flag signs of hypertension clinic but not limited to headache, blurry vision, chest pain, difficulty breathing, dizziness, or weakness. Will continue to monitor. # Asthma: Currently well-controlled without maintenance inhalers. Continue albuterol sulfate as needed. # Bipolar disorder: History of 2 prior hospitalizations. Currently stable on current regimen followed by psychiatry through [facility]. # Insomnia: Continue trazodone and gabapentin. Medications managed by psychiatry. # Hyperlipidemia: Total cholesterol on 12/06/2023 with LDL 107. Reviewed importance of lifestyle to help lower cholesterol and prevent other comorbidities. Will repeat lipid panel in 6 months and consider statin if increased. Discussed importance of incorporating fish oil. # Anxiety: Stable at this time, managed with psychiatry through [facility]. Infrequently uses lorazepam for panic symptoms. Reports some improvement with the clonidine. # Migraines: Per chart review has had 2 ED visits due to severe headaches. Follows with Dr. Troy with neurology. Trialed sumatriptan however made her nauseous. Continue butalbital, APAP, and caffeine tablet. 05/27/2024 Hyperlipidemia, unspecified hyperlipidemia type (ICD-10 - E78.5) Patient is here for weight management follow-up. We focused on significance of healthy lifestyle changes. We talked about need to track steps with goal between 6000-10,000 steps daily, focus on portion control, read food labels, get adequate sleep between 7 to 8 hours, get adequate rest to the body, meditate, frequent nutritious meals including vegetables and healthy choices of lean meats, fish, and elimination of refined carbohydrates. We also talked about mindfulness and mindful eating. Particular focus was on continuing to improve diet and increase physical activity as well as reducing alcohol consumption. Total time spent with 30 minutes with greater than 50% spent on counseling and coordinating care. 11/30/2023:Weight 184, BMI 32 Extensively educated on lifestyle modifications including high-protein foods, low carbohydrate snacks, healthy fats, sleep hygiene, stress reduction. Provided with educational documentation in regards to all of this. Discussed cortisol [place] for sleep. Options limited for medication secondary to Medicare. Discussed Contrave which patient would like to avoid because she does drink alcohol on occasion. Avoid phentermine due to age. Patient also has a history of insomnia/difficulty sleeping. Will obtain blood work for physical in 4 weeks. 01/03/2024: Weight 184, BMI 32.7. Patient's weight has plateaued since consultation last visit. She is still working on lifestyle. Hesitant to start GLP-1 secondary to patient's concern for hair loss. Is going to contact her health insurance to see if they cover medication such as Wegovy or Zepbound. Otherwise, discussed [id number] options but patient states that this is a challenge for her to afford. Continue to encourage that she is able to do this with lifestyle alone with consistency. 02/28/24: Weight 186, BMI 32. Patient is going to contact her health insurance to see if they cover medication such as Zepbound or Wegovy and with the [id number] cost looks like. Avoid Contrave due to other psychiatric medications.Avoid phentermine secondary to history of hypertension, Continue to encourage lifestyle, Body scan showing 2 pounds of increased fat, but also 2 pounds of increased muscle. 04/01/2024: Weight 189 pounds, BMI 33.48. Currently not on weight loss medication. She is not a good candidate for Contrave given concomitant psychiatric medications. Would avoid phentermine given history of hypertension. Discussed Wegovy and Zepbound and patient will contact insurance to understand which medication may be covered by plan. Reviewed goals of lifestyle including diet and exercise. Plan to follow-up in approximately 1 month for further management. 04/29/2024: Weight 183 pounds, BMI 32.41. Seca scan completed today and interpreted with patient. She is down approximately 6 pounds from last visit. Prior authorization for Wegovy denied by insurance. Otherwise has been implementing lifestyle modifications including exercise. Reviewed goals of diet and hydration of 60 to 80 ounces daily. At this time we will trial Contrave 8-90 mg. Discussed proper use of the medication and potential side effect profile including but not limited to headache, dizziness, dry mouth, and GI upset. Advised that medication requires a prior authorization which can take 2 to 4 weeks. If medication is uncovered she will pay as much as $99 per month through [email or web address]. Patient understanding. She will follow-up in office in 4 weeks for further management. 05/27/2024: Weight 183 pounds, BMI 32.41. Seca scan completed today and interpreted with the patient. Patient's weight has been stable since last visit. Is now going to retrial Contrave, tried a couple doses however had a headache. Reviewed goals of diet and exercise as well as hydration 60 to 80 ounces daily. She will follow-up in office in approximately 4 weeks at which time we will reevaluate progress. # Osteoporosis of forearm and femoral head/hip: Taking vitamin D/calcium. Finding in 2022 with plan to repeat in next 1 to 2 years. Not interested in medication for treatment of osteoporosis at this time. # Hypertension: BP 128/88. Continue amlodipine 5 mg once daily. No longer taking clonidine. Discussed red flag signs of hypertension clinic but not limited to headache, blurry vision, chest pain, difficulty breathing, dizziness, or weakness. Will continue to monitor. # Asthma: Currently well-controlled without maintenance inhalers. Continue albuterol sulfate as needed. # Bipolar disorder: History of 2 prior hospitalizations. Currently stable on current regimen followed by psychiatry through [facility]. # Insomnia: Continue trazodone and gabapentin. Medications managed by psychiatry. # Hyperlipidemia: Total cholesterol on 12/06/2023 with LDL 107. Reviewed importance of lifestyle to help lower cholesterol and prevent other comorbidities. Will repeat lipid panel in 6 months and consider statin if increased. Discussed importance of incorporating fish oil. # Anxiety: Stable at this time, managed with psychiatry through [facility]. Infrequently uses lorazepam for panic symptoms. Reports some improvement with the clonidine. # Migraines: Per chart review has had 2 ED visits due to severe headaches. Follows with Dr. Troy with neurology. Trialed sumatriptan however made her nauseous. Continue butalbital, APAP, and caffeine tablet. All questions have been answered to patient's satisfaction. Patient verbalized understanding of diagnosis and treatments explained. Advised to call sooner prior to next visit it any questions/concerns arise. Case discussed with collaborating physician Hudson Vela who reviewed the assessment and plan. Chart, medications, labs, vital signs reviewed. Dictation was accomplished with the use of [employer] voice recognition software, which is prone to medical misidentifications and grammatical errors. This are unintentional and the practitioner does try to identify and correct these, but some could still be present. Please do not hesitate to contact practitioner for clarification. 04/29/2024 Episodic migraine (ICD-10 - G43.909) Patient is here for weight management follow-up. We focused on significance of healthy lifestyle changes. We talked about need to track steps with goal between 6000-10,000 steps daily, focus on portion control, read food labels, get adequate sleep between 7 to 8 hours, get adequate rest to the body, meditate, frequent nutritious meals including vegetables and healthy choices of lean meats, fish, and elimination of refined carbohydrates. We also talked about mindfulness and mindful eating. Particular focus was on continuing to improve diet and increase physical activity as well as reducing alcohol consumption. Total time spent with 30 minutes with greater than 50% spent on counseling and coordinating care. 11/30/2023:Weight 184, BMI 32 Extensively educated on lifestyle modifications including high-protein foods, low carbohydrate snacks, healthy fats, sleep hygiene, stress reduction. Provided with educational documentation in regards to all of this. Discussed cortisol [place] for sleep. Options limited for medication secondary to Medicare. Discussed Contrave which patient would like to avoid because she does drink alcohol on occasion. Avoid phentermine due to age. Patient also has a history of insomnia/difficulty sleeping. Will obtain blood work for physical in 4 weeks. 01/03/2024: Weight 184, BMI 32.7. Patient's weight has plateaued since consultation last visit. She is still working on lifestyle. Hesitant to start GLP-1 secondary to patient's concern for hair loss. Is going to contact her health insurance to see if they cover medication such as Wegovy or Zepbound. Otherwise, discussed [id number] options but patient states that this is a challenge for her to afford. Continue to encourage that she is able to do this with lifestyle alone with consistency. 02/28/24: Weight 186, BMI 32. Patient is going to contact her health insurance to see if they cover medication such as Zepbound or Wegovy and with the [id number] cost looks like. Avoid Contrave due to other psychiatric medications.Avoid phentermine secondary to history of hypertension, Continue to encourage lifestyle, Body scan showing 2 pounds of increased fat, but also 2 pounds of increased muscle. 04/01/2024: Weight 189 pounds, BMI 33.48. Currently not on weight loss medication. She is not a good candidate for Contrave given concomitant psychiatric medications. Would avoid phentermine given history of hypertension. Discussed Wegovy and Zepbound and patient will contact insurance to understand which medication may be covered by plan. Reviewed goals of lifestyle including diet and exercise. Plan to follow-up in approximately 1 month for further management. 04/29/2024: Weight 183 pounds, BMI 32.41. Seca scan completed today and interpreted with patient. She is down approximately 6 pounds from last visit. Prior authorization for Wegovy denied by insurance. Otherwise has been implementing lifestyle modifications including exercise. Reviewed goals of diet and hydration of 60 to 80 ounces daily. At this time we will trial Contrave 8-90 mg. Discussed proper use of the medication and potential side effect profile including but not limited to headache, dizziness, dry mouth, and GI upset. Advised that medication requires a prior authorization which can take 2 to 4 weeks. If medication is uncovered she will pay as much as $99 per month through [email or web address]. Patient understanding. She will follow-up in office in 4 weeks for further management. # Osteoporosis of forearm and femoral head/hip: Taking vitamin D/calcium. Finding in 2022 with plan to repeat in next 1 to 2 years. Not interested in medication for treatment of osteoporosis at this time. # Hypertension: BP 118/76. Continue amlodipine 5 mg once daily. No longer taking clonidine. Discussed red flag signs of hypertension clinic but not limited to headache, blurry vision, chest pain, difficulty breathing, dizziness, or weakness. Will continue to monitor. # Asthma: Currently well-controlled without maintenance inhalers. Continue albuterol sulfate as needed. # Bipolar disorder: History of 2 prior hospitalizations. Currently stable on current regimen followed by psychiatry through [facility]. # Insomnia: Continue trazodone and gabapentin. Medications managed by psychiatry. # Hyperlipidemia: Total cholesterol on 12/06/2023 with LDL 107. Reviewed importance of lifestyle to help lower cholesterol and prevent other comorbidities. Will repeat lipid panel in 6 months and consider statin if increased. Discussed importance of incorporating fish oil. # Anxiety: Stable at this time, managed with psychiatry through [facility]. Infrequently uses lorazepam for panic symptoms. Reports some improvement with the clonidine. # Migraines: Per chart review has had 2 ED visits due to severe headaches. Follows with Dr. Troy with neurology. Trialed sumatriptan however made her nauseous. Continue butalbital, APAP, and caffeine tablet. All questions have been answered to patient's satisfaction. Patient verbalized understanding of diagnosis and treatments explained. Advised to call sooner prior to next visit it any questions/concerns arise. Case discussed with collaborating physician Hudson Vela who reviewed the assessment and plan. Chart, medications, labs, vital signs reviewed. Dictation was accomplished with the use of [employer] voice recognition software, which is prone to medical misidentifications and grammatical errors. This are unintentional and the practitioner does try to identify and correct these, but some could still be present. Please do not hesitate to contact practitioner for clarification. 04/01/2024 Episodic migraine (ICD-10 - G43.909) Patient is here for weight management follow-up. We focused on significance of healthy lifestyle changes. We talked about need to track steps with goal between 6000-10,000 steps daily, focus on portion control, read food labels, get adequate sleep between 7 to 8 hours, get adequate rest to the body, meditate, frequent nutritious meals including vegetables and healthy choices of lean meats, fish, and elimination of refined carbohydrates. We also talked about mindfulness and mindful eating. Particular focus was on continuing to improve diet and increase physical activity as well as reducing alcohol consumption. Total time spent with 30 minutes with greater than 50% spent on counseling and coordinating care. 11/30/2023:Weight 184, BMI 32 Extensively educated on lifestyle modifications including high-protein foods, low carbohydrate snacks, healthy fats, sleep hygiene, stress reduction. Provided with educational documentation in regards to all of this. Discussed cortisol [place] for sleep. Options limited for medication secondary to Medicare. Discussed Contrave which patient would like to avoid because she does drink alcohol on occasion. Avoid phentermine due to age. Patient also has a history of insomnia/difficulty sleeping. Will obtain blood work for physical in 4 weeks. 01/03/2024: Weight 184, BMI 32.7. Patient's weight has plateaued since consultation last visit. She is still working on lifestyle. Hesitant to start GLP-1 secondary to patient's concern for hair loss. Is going to contact her health insurance to see if they cover medication such as Wegovy or Zepbound. Otherwise, discussed [id number] options but patient states that this is a challenge for her to afford. Continue to encourage that she is able to do this with lifestyle alone with consistency. 02/28/24: Weight 186, BMI 32. Patient is going to contact her health insurance to see if they cover medication such as Zepbound or Wegovy and with the [id number] cost looks like. Avoid Contrave due to other psychiatric medications.Avoid phentermine secondary to history of hypertension, Continue to encourage lifestyle, Body scan showing 2 pounds of increased fat, but also 2 pounds of increased muscle. 04/01/2024: Weight 189 pounds, BMI 33.48. Currently not on weight loss medication. She is not a good candidate for Contrave given concomitant psychiatric medications. Would avoid phentermine given history of hypertension. Discussed Wegovy and Zepbound and patient will contact insurance to understand which medication may be covered by plan. Reviewed goals of lifestyle including diet and exercise. Plan to follow-up in approximately 1 month for further management. # Left ankle pain: Patient reporting injury to left ankle while she was consuming alcohol, was dressing and had a mechanical fall on her left foot. Reports improvement in pain overall, following up with podiatry tomorrow at [facility] [place] with Dr. Sheldon Spencer. Advised to continue [id number] Tylenol or ibuprofen as needed for pain. Will continue to monitor. # Hot flashes: Reporting on and off sensation of feeling hot then cold. TSH within normal limits at 1.670. She is in menopause at this time. Was previously on hormone replacement therapy however discontinued due to risks associated. Can consider DHEA-S for symptomatic treatment. # Osteoporosis of forearm and femoral head/hip: Taking vitamin D/calcium. Finding in 2022 with plan to repeat in next 1 to 2 years. Not interested in medication for treatment of osteoporosis at this time. # Hypertension: Continue amlodipine 5 mg once daily. No longer taking clonidine. Discussed red flag signs of hypertension clinic but not limited to headache, blurry vision, chest pain, difficulty breathing, dizziness, or weakness. Will continue to monitor. # Asthma: Currently well-controlled without maintenance inhalers. Continue albuterol sulfate as needed. # Bipolar disorder: History of 2 prior hospitalizations. Currently stable on current regimen followed by psychiatry through [facility]. # Insomnia: Continue trazodone and gabapentin. Medications managed by psychiatry. # Hyperlipidemia: Total cholesterol on 12/06/2023 with LDL 107. Reviewed importance of lifestyle to help lower cholesterol and prevent other comorbidities. Will repeat lipid panel in 6 months and consider statin if increased. Discussed importance of incorporating fish oil. # Anxiety: Stable at this time, managed with psychiatry through [facility]. Infrequently uses lorazepam for panic symptoms. Reports some improvement with the clonidine. # Migraines: Per chart review has had 2 ED visits due to severe headaches. Follows with Dr. Troy with neurology. Trialed sumatriptan however made her nauseous. Continue butalbital, APAP, and caffeine tablet. 06/24/2024 Episodic migraine (ICD-10 - G43.741) Patient is here for weight management follow-up. We focused on significance of healthy lifestyle changes. We talked about need to track steps with goal between 6000-10,000 steps daily, focus on portion control, read food labels, get adequate sleep between 7 to 8 hours, get adequate rest to the body, meditate, frequent nutritious meals including vegetables and healthy choices of lean meats, fish, and elimination of refined carbohydrates. We also talked about mindfulness and mindful eating. Particular focus was on continuing to practice portion control and implement physical activity. Total time spent with 30 minutes with greater than 50% spent on counseling and coordinating care. 11/30/2023:Weight 184, BMI 32 Extensively educated on lifestyle modifications including high-protein foods, low carbohydrate snacks, healthy fats, sleep hygiene, stress reduction. Provided with educational documentation in regards to all of this. Discussed cortisol manager [place] for sleep. Options limited for medication secondary to Medicare. Discussed Contrave which patient would like to avoid because she does drink alcohol on occasion. Avoid phentermine due to age. Patient also has a history of insomnia/difficulty sleeping. Will obtain blood work for physical in 4 weeks. 01/03/2024: Weight 184, BMI 32.7. Patient's weight has plateaued since consultation last visit. She is still working on lifestyle. Hesitant to start GLP-1 secondary to patient's concern for hair loss. Is going to contact her health insurance to see if they cover medication such as Wegovy or Zepbound. Otherwise, discussed [id number] options but patient states that this is a challenge for her to afford. Continue to encourage that she is able to do this with lifestyle alone with consistency. 02/28/24: Weight 186, BMI 32. Patient is going to contact her health insurance to see if they cover medication such as Zepbound or Wegovy and with the [id number] cost looks like. Avoid Contrave due to other psychiatric medications.Avoid phentermine secondary to history of hypertension, Continue to encourage lifestyle, Body scan showing 2 pounds of increased fat, but also 2 pounds of increased muscle. 04/01/2024: Weight 189 pounds, BMI 33.48. Currently not on weight loss medication. She is not a good candidate for Contrave given concomitant psychiatric medications. Would avoid phentermine given history of hypertension. Discussed Wegovy and Zepbound and patient will contact insurance to understand which medication may be covered by plan. Reviewed goals of lifestyle including diet and exercise. Plan to follow-up in approximately 1 month for further management. 04/29/2024: Weight 183 pounds, BMI 32.41. Seca scan completed today and interpreted with patient. She is down approximately 6 pounds from last visit. Prior authorization for Wegovy denied by insurance. Otherwise has been implementing lifestyle modifications including exercise. Reviewed goals of diet and hydration of 60 to 80 ounces daily. At this time we will trial Contrave 8-90 mg. Discussed proper use of the medication and potential side effect profile including but not limited to headache, dizziness, dry mouth, and GI upset. Advised that medication requires a prior authorization which can take 2 to 4 weeks. If medication is uncovered she will pay as much as $99 per month through [email or web address]. Patient understanding. She will follow-up in office in 4 weeks for further management. 05/27/2024: Weight 183 pounds, BMI 32.41. Seca scan completed today and interpreted with the patient. Patient's weight has been stable since last visit. Is now going to retrial Contrave, tried a couple doses however had a headache. Reviewed goals of diet and exercise as well as hydration 60 to 80 ounces daily. She will follow-up in office in approximately 4 weeks at which time we will reevaluate progress. 06/24/2024: Weight 177 pounds, BMI 31.35. SECA scan completed today and interpreted with the patient. Patient is down about 6 pounds from last visit. She is down 4 pounds of fat mass and has increased amounts of muscle mass. Waist circumference has decreased by 2 inches. Patient is no longer on Contrave due to adverse effects of dizziness and sensation of off balance. At this time not on medication. Insurance not covering GLP-1 medications. We discussed use of compounded medications including compounded tirzepatide and semaglutide. Patient will have discussion with her and get back to our office regarding plan of action. Otherwise we reviewed goals of diet and exercise as well as hydration 60 to 80 ounces daily. Plan is to follow-up for weight management in 4 weeks for further assessment. # Osteoporosis of forearm and femoral head/hip: Taking vitamin D/calcium. Finding in 2022 with plan to repeat in next 1 to 2 years. Not interested in medication for treatment of osteoporosis at this time. # Hypertension: BP (). Continue amlodipine 5 mg once daily. No longer taking clonidine. Discussed red flag signs of hypertension clinic but not limited to headache, blurry vision, chest pain, difficulty breathing, dizziness, or weakness. Will continue to monitor. # Asthma: Currently well-controlled without maintenance inhalers. Continue albuterol sulfate as needed. # Bipolar disorder: History of 2 prior hospitalizations. Currently stable on current regimen followed by psychiatry through [facility]. # Insomnia: Continue trazodone and gabapentin. Medications managed by psychiatry. # Hyperlipidemia: Total cholesterol on 12/06/2023 with LDL 107. Reviewed importance of lifestyle to help lower cholesterol and prevent other comorbidities. Will repeat lipid panel at next f/u and consider statin if increased. Discussed importance of incorporating fish oil. # Anxiety: Stable at this time, managed with psychiatry through [facility]. Infrequently uses lorazepam for panic symptoms. Reports some improvement with the clonidine. # Migraines: Per chart review has had 2 ED visits due to severe headaches. Follows with Dr. Troy with neurology. Trialed sumatriptan however made her nauseous. Continue butalbital, APAP, and caffeine tablet. # Preventative medicine: Patient recently updated her Shingrix vaccine. Had first dose in series however this was a few years ago and now has to restart series. Will complete second dose in approximately 2 to 6 months. Also recently updated COVID booster. All questions have been answered to patient's satisfaction. Patient verbalized understanding of diagnosis and treatments explained. Advised to call sooner prior to next visit it any questions/concerns arise. Case discussed with collaborating physician Hudson Vela who reviewed the assessment and plan. Chart, medications, labs, vital signs reviewed. Dictation was accomplished with the use of [employer] voice recognition software, which is prone to medical misidentifications and grammatical errors. This are unintentional and the practitioner does try to identify and correct these, but some could still be present. Please do not hesitate to contact practitioner for clarification. 06/26/2024 Obesity (BMI 30.0-34.9) (ICD-10 - E66.811) Wendi is a 64-year-old male with a of multiple medical conditions who presents today for follow-up today of hyperlipidemia. Cardiopulmonary exam unremarkable. Patient will follow-up in office for her annual exam in December with updated labs. # Hyperlipidemia: Updated lipid panel on with total cholesterol 229, HDL 91, triglycerides 86, LDL 119. LDL and total cholesterol have slightly increased from labs in November. Low ASCVD risk less than 10%, no indication for statin at this time. Discussed other measures of lowering cholesterol including incorporating fiber in diet, regular vitamin D intake, use of turmeric supplements, fish oil which she currently takes, as well as maintaining regular physical activity. Patient understanding and will reevaluate lipid panel at her next visit in December. # Hypertension: BP 122/80. Continue amlodipine 5 mg once daily. No longer taking clonidine. Discussed red flag signs of hypertension clinic but not limited to headache, blurry vision, chest pain, difficulty breathing, dizziness, or weakness. Will continue to monitor. # Asthma: Currently well-controlled without maintenance inhalers. Continue albuterol sulfate as needed. # Bipolar disorder: History of 2 prior hospitalizations. Currently stable on current regimen followed by psychiatry through [facility]. # Insomnia: Continue trazodone and gabapentin. Medications managed by psychiatry. # Anxiety: Stable at this time, managed with psychiatry through [facility]. Infrequently uses lorazepam for panic symptoms. Reports some improvement with the clonidine. # Migraines: Per chart review has had 2 ED visits due to severe headaches. Follows with Dr. Troy with neurology. Trialed sumatriptan however made her nauseous. Continue butalbital, APAP, and caffeine tablet. # Obesity: Weight 177 pounds, BMI 31.35. Patient established in weight management program, next follow-up on 07/25/2024. Will continue to monitor. All questions have been answered to patient's satisfaction. Patient verbalized understanding of diagnosis and treatments explained. Advised to call sooner prior to next visit it any questions/concerns arise. Case discussed with collaborating physician Hudson Vela who reviewed the assessment and plan. Chart, medications, labs, vital signs reviewed. Dictation was accomplished with the use of [employer] voice recognition software, which is prone to medical misidentifications and grammatical errors. This are unintentional and the practitioner does try to identify and correct these, but some could still be present. Please do not hesitate to contact practitioner for clarification. 01/07/2025 Bipolar disease, chronic (ICD-10 - F31.9) Patient is here for a Medicare wellness visit. Complete paperwork was reviewed and updated and has been filed and scanned. Depression screen completed. Alcohol AUDIT SCREEN completed. Obesity screen completed. Cardiovascular risk stratification screen completed. # Hyperlipidemia: Lipid panel updated on 01/03/2025 with values of total cholesterol 220, triglycerides 55, LDL 103, HDL 106. ASCVD risk of 5.4%, moderate intensity statin is recommended. Patient centered discussion had today regarding ongoing treatment for hyperlipidemia, at this time patient states that she would prefer to not go on statin and continue to prioritize lifestyle. Discussed other measures of lowering cholesterol including incorporating fiber in diet, regular vitamin D intake, use of turmeric supplements, fish oil which she currently takes, as well as maintaining regular physical activity. # Hypertension: BP stable in office. Continue amlodipine 5 mg once daily. No longer taking clonidine. Discussed red flag signs of hypertension clinic but not limited to headache, blurry vision, chest pain, difficulty breathing, dizziness, or weakness. Will continue to monitor. # Asthma: Currently well-controlled without maintenance inhalers. Continue albuterol sulfate as needed. # Bipolar II disorder: Last televisit with psychiatry on 05/13/2024. Per specialist note review, mood symptoms are well-managed. She reports some sleep issues but is satisfied with trazodone and will work on sleep hygiene. Psychiatric evaluation is without wilfredo, psychosis, delusions, or OCD behaviors. Denies SI or HI. No previous history of suicidal attempts. Plan with specialist is to continue Ativan 0.5 mg daily as needed for anxiety, trazodone 225 to 300 mg nightly for sleep as needed, and to decrease gabapentin 800 mg from 3 times daily to 2 times daily. # Insomnia: Continue trazodone 225 to 300 mg once nightly as needed for sleep. Continue to practice good sleep hygiene. # Anxiety: Stable at this time, managed with psychiatry through [facility]. Infrequently uses lorazepam for panic symptoms. Reports some improvement with the clonidine. # Migraines: Per chart review has had 2 ED visits due to severe headaches. Follows with Dr. Troy with neurology. Trialed sumatriptan however made her nauseous. Continue butalbital, APAP, and caffeine tablet. # Obesity: Weight 186 pounds, BMI 32.94. Discussed lifestyle modifications to treat underlying obesity. Patient has been improving her diet. She is down 4 pounds from her last visit in October. Continue to monitor. # Preventative medicine: Patient up-to-date on all vaccinations. Mammogram updated November 2024. Updated bone mineral density scan is scheduled. # Advance care planning: Discussed and provided forms today for healthcare proxy and MOLST. Cognition assessed and within reasonable limits Fall risk assessed. Discussed healthcare proxy. Discussed [place] order for life sustaining treatment, end-of-life issues, intubation and resuscitation dialysis artificial nutrition and hydration is appropriate. We discussed [place] order for life sustaining treatment and healthcare proxy. We discussed need for resuscitation, intubation, ventilation, need for dialysis, short-term versus long-term, nutrition, IV nutrition and hydration. Total time spent was 45 minutes with greater than 50% spent on counseling and coordinating care All questions have been answered to patient's satisfaction. Patient verbalized understanding of diagnosis and treatments explained. Advised to call sooner prior to next visit it any questions/concerns arise. Case discussed with collaborating physician Hudson Vela who reviewed the assessment and plan. Chart, medications, labs, vital signs reviewed. Dictation was accomplished with the use of [employer] voice recognition software, which is prone to medical misidentifications and grammatical errors. This are unintentional and the practitioner does try to identify and correct these, but some could still be present. Please do not hesitate to contact practitioner for clarification. 01/07/2025 Anxiety (ICD-10 - F41.9) Patient is here for a Medicare wellness visit. Complete paperwork was reviewed and updated and has been filed and scanned. Depression screen completed. Alcohol AUDIT SCREEN completed. Obesity screen completed. Cardiovascular risk stratification screen completed. # Hyperlipidemia: Lipid panel updated on 01/03/2025 with values of total cholesterol 220, triglycerides 55, LDL 103, HDL 106. ASCVD risk of 5.4%, moderate intensity statin is recommended. Patient centered discussion had today regarding ongoing treatment for hyperlipidemia, at this time patient states that she would prefer to not go on statin and continue to prioritize lifestyle. Discussed other measures of lowering cholesterol including incorporating fiber in diet, regular vitamin D intake, use of turmeric supplements, fish oil which she currently takes, as well as maintaining regular physical activity. # Hypertension: BP stable in office. Continue amlodipine 5 mg once daily. No longer taking clonidine. Discussed red flag signs of hypertension clinic but not limited to headache, blurry vision, chest pain, difficulty breathing, dizziness, or weakness. Will continue to monitor. # Asthma: Currently well-controlled without maintenance inhalers. Continue albuterol sulfate as needed. # Bipolar II disorder: Last televisit with psychiatry on 05/13/2024. Per specialist note review, mood symptoms are well-managed. She reports some sleep issues but is satisfied with trazodone and will work on sleep hygiene. Psychiatric evaluation is without wilfredo, psychosis, delusions, or OCD behaviors. Denies SI or HI. No previous history of suicidal attempts. Plan with specialist is to continue Ativan 0.5 mg daily as needed for anxiety, trazodone 225 to 300 mg nightly for sleep as needed, and to decrease gabapentin 800 mg from 3 times daily to 2 times daily. # Insomnia: Continue trazodone 225 to 300 mg once nightly as needed for sleep. Continue to practice good sleep hygiene. # Anxiety: Stable at this time, managed with psychiatry through [facility]. Infrequently uses lorazepam for panic symptoms. Reports some improvement with the clonidine. # Migraines: Per chart review has had 2 ED visits due to severe headaches. Follows with Dr. Troy with neurology. Trialed sumatriptan however made her nauseous. Continue butalbital, APAP, and caffeine tablet. # Obesity: Weight 186 pounds, BMI 32.94. Discussed lifestyle modifications to treat underlying obesity. Patient has been improving her diet. She is down 4 pounds from her last visit in October. Continue to monitor. # Preventative medicine: Patient up-to-date on all vaccinations. Mammogram updated November 2024. Updated bone mineral density scan is scheduled. # Advance care planning: Discussed and provided forms today for healthcare proxy and MOLST. Cognition assessed and within reasonable limits Fall risk assessed. Discussed healthcare proxy. Discussed [place] order for life sustaining treatment, end-of-life issues, intubation and resuscitation dialysis artificial nutrition and hydration is appropriate. We discussed [place] order for life sustaining treatment and healthcare proxy. We discussed need for resuscitation, intubation, ventilation, need for dialysis, short-term versus long-term, nutrition, IV nutrition and hydration. Total time spent was 45 minutes with greater than 50% spent on counseling and coordinating care All questions have been answered to patient's satisfaction. Patient verbalized understanding of diagnosis and treatments explained. Advised to call sooner prior to next visit it any questions/concerns arise. Case discussed with collaborating physician Hudson Vela who reviewed the assessment and plan. Chart, medications, labs, vital signs reviewed. Dictation was accomplished with the use of [employer] voice recognition software, which is prone to medical misidentifications and grammatical errors. This are unintentional and the practitioner does try to identify and correct these, but some could still be present. Please do not hesitate to contact practitioner for clarification. 05/27/2024 Episodic migraine (ICD-10 - G43.909) Patient is here for weight management follow-up. We focused on significance of healthy lifestyle changes. We talked about need to track steps with goal between 6000-10,000 steps daily, focus on portion control, read food labels, get adequate sleep between 7 to 8 hours, get adequate rest to the body, meditate, frequent nutritious meals including vegetables and healthy choices of lean meats, fish, and elimination of refined carbohydrates. We also talked about mindfulness and mindful eating. Particular focus was on continuing to improve diet and increase physical activity as well as reducing alcohol consumption. Total time spent with 30 minutes with greater than 50% spent on counseling and coordinating care. 11/30/2023:Weight 184, BMI 32 Extensively educated on lifestyle modifications including high-protein foods, low carbohydrate snacks, healthy fats, sleep hygiene, stress reduction. Provided with educational documentation in regards to all of this. Discussed cortisol manager [place] for sleep. Options limited for medication secondary to Medicare. Discussed Contrave which patient would like to avoid because she does drink alcohol on occasion. Avoid phentermine due to age. Patient also has a history of insomnia/difficulty sleeping. Will obtain blood work for physical in 4 weeks. 01/03/2024: Weight 184, BMI 32.7. Patient's weight has plateaued since consultation last visit. She is still working on lifestyle. Hesitant to start GLP-1 secondary to patient's concern for hair loss. Is going to contact her health insurance to see if they cover medication such as Wegovy or Zepbound. Otherwise, discussed [id number] options but patient states that this is a challenge for her to afford. Continue to encourage that she is able to do this with lifestyle alone with consistency. 02/28/24: Weight 186, BMI 32. Patient is going to contact her health insurance to see if they cover medication such as Zepbound or Wegovy and with the [id number] cost looks like. Avoid Contrave due to other psychiatric medications.Avoid phentermine secondary to history of hypertension, Continue to encourage lifestyle, Body scan showing 2 pounds of increased fat, but also 2 pounds of increased muscle. 04/01/2024: Weight 189 pounds, BMI 33.48. Currently not on weight loss medication. She is not a good candidate for Contrave given concomitant psychiatric medications. Would avoid phentermine given history of hypertension. Discussed Wegovy and Zepbound and patient will contact insurance to understand which medication may be covered by plan. Reviewed goals of lifestyle including diet and exercise. Plan to follow-up in approximately 1 month for further management. 04/29/2024: Weight 183 pounds, BMI 32.41. Seca scan completed today and interpreted with patient. She is down approximately 6 pounds from last visit. Prior authorization for Wegovy denied by insurance. Otherwise has been implementing lifestyle modifications including exercise. Reviewed goals of diet and hydration of 60 to 80 ounces daily. At this time we will trial Contrave 8-90 mg. Discussed proper use of the medication and potential side effect profile including but not limited to headache, dizziness, dry mouth, and GI upset. Advised that medication requires a prior authorization which can take 2 to 4 weeks. If medication is uncovered she will pay as much as $99 per month through [email or web address]. Patient understanding. She will follow-up in office in 4 weeks for further management. 05/27/2024: Weight 183 pounds, BMI 32.41. Seca scan completed today and interpreted with the patient. Patient's weight has been stable since last visit. Is now going to retrial Contrave, tried a couple doses however had a headache. Reviewed goals of diet and exercise as well as hydration 60 to 80 ounces daily. She will follow-up in office in approximately 4 weeks at which time we will reevaluate progress. # Osteoporosis of forearm and femoral head/hip: Taking vitamin D/calcium. Finding in 2022 with plan to repeat in next 1 to 2 years. Not interested in medication for treatment of osteoporosis at this time. # Hypertension: BP 128/88. Continue amlodipine 5 mg once daily. No longer taking clonidine. Discussed red flag signs of hypertension clinic but not limited to headache, blurry vision, chest pain, difficulty breathing, dizziness, or weakness. Will continue to monitor. # Asthma: Currently well-controlled without maintenance inhalers. Continue albuterol sulfate as needed. # Bipolar disorder: History of 2 prior hospitalizations. Currently stable on current regimen followed by psychiatry through [facility]. # Insomnia: Continue trazodone and gabapentin. Medications managed by psychiatry. # Hyperlipidemia: Total cholesterol on 12/06/2023 with LDL 107. Reviewed importance of lifestyle to help lower cholesterol and prevent other comorbidities. Will repeat lipid panel in 6 months and consider statin if increased. Discussed importance of incorporating fish oil. # Anxiety: Stable at this time, managed with psychiatry through [facility]. Infrequently uses lorazepam for panic symptoms. Reports some improvement with the clonidine. # Migraines: Per chart review has had 2 ED visits due to severe headaches. Follows with Dr. Troy with neurology. Trialed sumatriptan however made her nauseous. Continue butalbital, APAP, and caffeine tablet. All questions have been answered to patient's satisfaction. Patient verbalized understanding of diagnosis and treatments explained. Advised to call sooner prior to next visit it any questions/concerns arise. Case discussed with collaborating physician Hudson Vela who reviewed the assessment and plan. Chart, medications, labs, vital signs reviewed. Dictation was accomplished with the use of [employer] voice recognition software, which is prone to medical misidentifications and grammatical errors. This are unintentional and the practitioner does try to identify and correct these, but some could still be present. Please do not hesitate to contact practitioner for clarification. 04/01/2024 Acute left ankle pain (ICD-10 - M25.572) Patient is here for weight management follow-up. We focused on significance of healthy lifestyle changes. We talked about need to track steps with goal between 6000-10,000 steps daily, focus on portion control, read food labels, get adequate sleep between 7 to 8 hours, get adequate rest to the body, meditate, frequent nutritious meals including vegetables and healthy choices of lean meats, fish, and elimination of refined carbohydrates. We also talked about mindfulness and mindful eating. Particular focus was on continuing to improve diet and increase physical activity as well as reducing alcohol consumption. Total time spent with 30 minutes with greater than 50% spent on counseling and coordinating care. 11/30/2023:Weight 184, BMI 32 Extensively educated on lifestyle modifications including high-protein foods, low carbohydrate snacks, healthy fats, sleep hygiene, stress reduction. Provided with educational documentation in regards to all of this. Discussed cortisol manager [place] for sleep. Options limited for medication secondary to Medicare. Discussed Contrave which patient would like to avoid because she does drink alcohol on occasion. Avoid phentermine due to age. Patient also has a history of insomnia/difficulty sleeping. Will obtain blood work for physical in 4 weeks. 01/03/2024: Weight 184, BMI 32.7. Patient's weight has plateaued since consultation last visit. She is still working on lifestyle. Hesitant to start GLP-1 secondary to patient's concern for hair loss. Is going to contact her health insurance to see if they cover medication such as Wegovy or Zepbound. Otherwise, discussed [id number] options but patient states that this is a challenge for her to afford. Continue to encourage that she is able to do this with lifestyle alone with consistency. 02/28/24: Weight 186, BMI 32. Patient is going to contact her health insurance to see if they cover medication such as Zepbound or Wegovy and with the [id number] cost looks like. Avoid Contrave due to other psychiatric medications.Avoid phentermine secondary to history of hypertension, Continue to encourage lifestyle, Body scan showing 2 pounds of increased fat, but also 2 pounds of increased muscle. 04/01/2024: Weight 189 pounds, BMI 33.48. Currently not on weight loss medication. She is not a good candidate for Contrave given concomitant psychiatric medications. Would avoid phentermine given history of hypertension. Discussed Wegovy and Zepbound and patient will contact insurance to understand which medication may be covered by plan. Reviewed goals of lifestyle including diet and exercise. Plan to follow-up in approximately 1 month for further management. # Left ankle pain: Patient reporting injury to left ankle while she was consuming alcohol, was dressing and had a mechanical fall on her left foot. Reports improvement in pain overall, following up with podiatry tomorrow at [facility] [place] with Dr. Sheldon Spencer. Advised to continue [id number] Tylenol or ibuprofen as needed for pain. Will continue to monitor. # Hot flashes: Reporting on and off sensation of feeling hot then cold. TSH within normal limits at 1.670. She is in menopause at this time. Was previously on hormone replacement therapy however discontinued due to risks associated. Can consider DHEA-S for symptomatic treatment. # Osteoporosis of forearm and femoral head/hip: Taking vitamin D/calcium. Finding in 2022 with plan to repeat in next 1 to 2 years. Not interested in medication for treatment of osteoporosis at this time. # Hypertension: Continue amlodipine 5 mg once daily. No longer taking clonidine. Discussed red flag signs of hypertension clinic but not limited to headache, blurry vision, chest pain, difficulty breathing, dizziness, or weakness. Will continue to monitor. # Asthma: Currently well-controlled without maintenance inhalers. Continue albuterol sulfate as needed. # Bipolar disorder: History of 2 prior hospitalizations. Currently stable on current regimen followed by psychiatry through [facility]. # Insomnia: Continue trazodone and gabapentin. Medications managed by psychiatry. # Hyperlipidemia: Total cholesterol on 12/06/2023 with LDL 107. Reviewed importance of lifestyle to help lower cholesterol and prevent other comorbidities. Will repeat lipid panel in 6 months and consider statin if increased. Discussed importance of incorporating fish oil. # Anxiety: Stable at this time, managed with psychiatry through [facility]. Infrequently uses lorazepam for panic symptoms. Reports some improvement with the clonidine. # Migraines: Per chart review has had 2 ED visits due to severe headaches. Follows with Dr. Troy with neurology. Trialed sumatriptan however made her nauseous. Continue butalbital, APAP, and caffeine tablet. 04/01/2024 Hot flashes (ICD-10 - R23.2) Patient is here for weight management follow-up. We focused on significance of healthy lifestyle changes. We talked about need to track steps with goal between 6000-10,000 steps daily, focus on portion control, read food labels, get adequate sleep between 7 to 8 hours, get adequate rest to the body, meditate, frequent nutritious meals including vegetables and healthy choices of lean meats, fish, and elimination of refined carbohydrates. We also talked about mindfulness and mindful eating. Particular focus was on continuing to improve diet and increase physical activity as well as reducing alcohol consumption. Total time spent with 30 minutes with greater than 50% spent on counseling and coordinating care. 11/30/2023:Weight 184, BMI 32 Extensively educated on lifestyle modifications including high-protein foods, low carbohydrate snacks, healthy fats, sleep hygiene, stress reduction. Provided with educational documentation in regards to all of this. Discussed cortisol [place] for sleep. Options limited for medication secondary to Medicare. Discussed Contrave which patient would like to avoid because she does drink alcohol on occasion. Avoid phentermine due to age. Patient also has a history of insomnia/difficulty sleeping. Will obtain blood work for physical in 4 weeks. 01/03/2024: Weight 184, BMI 32.7. Patient's weight has plateaued since consultation last visit. She is still working on lifestyle. Hesitant to start GLP-1 secondary to patient's concern for hair loss. Is going to contact her health insurance to see if they cover medication such as Wegovy or Zepbound. Otherwise, discussed [id number]-[id number] options but patient states that this is a challenge for her to afford. Continue to encourage that she is able to do this with lifestyle alone with consistency. 02/28/24: Weight 186, BMI 32. Patient is going to contact her health insurance to see if they cover medication such as Zepbound or Wegovy and with the [id number] cost looks like. Avoid Contrave due to other psychiatric medications.Avoid phentermine secondary to history of hypertension, Continue to encourage lifestyle, Body scan showing 2 pounds of increased fat, but also 2 pounds of increased muscle. 04/01/2024: Weight 189 pounds, BMI 33.48. Currently not on weight loss medication. She is not a good candidate for Contrave given concomitant psychiatric medications. Would avoid phentermine given history of hypertension. Discussed Wegovy and Zepbound and patient will contact insurance to understand which medication may be covered by plan. Reviewed goals of lifestyle including diet and exercise. Plan to follow-up in approximately 1 month for further management. # Left ankle pain: Patient reporting injury to left ankle while she was consuming alcohol, was dressing and had a mechanical fall on her left foot. Reports improvement in pain overall, following up with podiatry tomorrow at [facility] [place] with Dr. Sheldon Spencer. Advised to continue [id number] Tylenol or ibuprofen as needed for pain. Will continue to monitor. # Hot flashes: Reporting on and off sensation of feeling hot then cold. TSH within normal limits at 1.670. She is in menopause at this time. Was previously on hormone replacement therapy however discontinued due to risks associated. Can consider DHEA-S for symptomatic treatment. # Osteoporosis of forearm and femoral head/hip: Taking vitamin D/calcium. Finding in 2022 with plan to repeat in next 1 to 2 years. Not interested in medication for treatment of osteoporosis at this time. # Hypertension: Continue amlodipine 5 mg once daily. No longer taking clonidine. Discussed red flag signs of hypertension clinic but not limited to headache, blurry vision, chest pain, difficulty breathing, dizziness, or weakness. Will continue to monitor. # Asthma: Currently well-controlled without maintenance inhalers. Continue albuterol sulfate as needed. # Bipolar disorder: History of 2 prior hospitalizations. Currently stable on current regimen followed by psychiatry through [facility]. # Insomnia: Continue trazodone and gabapentin. Medications managed by psychiatry. # Hyperlipidemia: Total cholesterol on 12/06/2023 with LDL 107. Reviewed importance of lifestyle to help lower cholesterol and prevent other comorbidities. Will repeat lipid panel in 6 months and consider statin if increased. Discussed importance of incorporating fish oil. # Anxiety: Stable at this time, managed with psychiatry through [facility]. Infrequently uses lorazepam for panic symptoms. Reports some improvement with the clonidine. # Migraines: Per chart review has had 2 ED visits due to severe headaches. Follows with Dr. Troy with neurology. Trialed sumatriptan however made her nauseous. Continue butalbital, APAP, and caffeine tablet. 01/07/2025 Episodic migraine (ICD-10 - G43.909) Patient is here for a Medicare wellness visit. Complete paperwork was reviewed and updated and has been filed and scanned. Depression screen completed. Alcohol AUDIT SCREEN completed. Obesity screen completed. Cardiovascular risk stratification screen completed. # Hyperlipidemia: Lipid panel updated on 01/03/2025 with values of total cholesterol 220, triglycerides 55, LDL 103, HDL 106. ASCVD risk of 5.4%, moderate intensity statin is recommended. Patient centered discussion had today regarding ongoing treatment for hyperlipidemia, at this time patient states that she would prefer to not go on statin and continue to prioritize lifestyle. Discussed other measures of lowering cholesterol including incorporating fiber in diet, regular vitamin D intake, use of turmeric supplements, fish oil which she currently takes, as well as maintaining regular physical activity. # Hypertension: BP stable in office. Continue amlodipine 5 mg once daily. No longer taking clonidine. Discussed red flag signs of hypertension clinic but not limited to headache, blurry vision, chest pain, difficulty breathing, dizziness, or weakness. Will continue to monitor. # Asthma: Currently well-controlled without maintenance inhalers. Continue albuterol sulfate as needed. # Bipolar II disorder: Last televisit with psychiatry on 05/13/2024. Per specialist note review, mood symptoms are well-managed. She reports some sleep issues but is satisfied with trazodone and will work on sleep hygiene. Psychiatric evaluation is without wilfredo, psychosis, delusions, or OCD behaviors. Denies SI or HI. No previous history of suicidal attempts. Plan with specialist is to continue Ativan 0.5 mg daily as needed for anxiety, trazodone 225 to 300 mg nightly for sleep as needed, and to decrease gabapentin 800 mg from 3 times daily to 2 times daily. # Insomnia: Continue trazodone 225 to 300 mg once nightly as needed for sleep. Continue to practice good sleep hygiene. # Anxiety: Stable at this time, managed with psychiatry through [facility]. Infrequently uses lorazepam for panic symptoms. Reports some improvement with the clonidine. # Migraines: Per chart review has had 2 ED visits due to severe headaches. Follows with Dr. Troy with neurology. Trialed sumatriptan however made her nauseous. Continue butalbital, APAP, and caffeine tablet. # Obesity: Weight 186 pounds, BMI 32.94. Discussed lifestyle modifications to treat underlying obesity. Patient has been improving her diet. She is down 4 pounds from her last visit in October. Continue to monitor. # Preventative medicine: Patient up-to-date on all vaccinations. Mammogram updated November 2024. Updated bone mineral density scan is scheduled. # Advance care planning: Discussed and provided forms today for healthcare proxy and MOLST. Cognition assessed and within reasonable limits Fall risk assessed. Discussed healthcare proxy. Discussed [place] order for life sustaining treatment, end-of-life issues, intubation and resuscitation dialysis artificial nutrition and hydration is appropriate. We discussed [place] order for life sustaining treatment and healthcare proxy. We discussed need for resuscitation, intubation, ventilation, need for dialysis, short-term versus long-term, nutrition, IV nutrition and hydration. Total time spent was 45 minutes with greater than 50% spent on counseling and coordinating care All questions have been answered to patient's satisfaction. Patient verbalized understanding of diagnosis and treatments explained. Advised to call sooner prior to next visit it any questions/concerns arise. Case discussed with collaborating physician Hudson Vela who reviewed the assessment and plan. Chart, medications, labs, vital signs reviewed. Dictation was accomplished with the use of [employer] voice recognition software, which is prone to medical misidentifications and grammatical errors. This are unintentional and the practitioner does try to identify and correct these, but some could still be present. Please do not hesitate to contact practitioner for clarification. 01/07/2025 Mixed hyperlipidemia (ICD-10 - E78.2) Patient is here for a Medicare wellness visit. Complete paperwork was reviewed and updated and has been filed and scanned. Depression screen completed. Alcohol AUDIT SCREEN completed. Obesity screen completed. Cardiovascular risk stratification screen completed. # Hyperlipidemia: Lipid panel updated on 01/03/2025 with values of total cholesterol 220, triglycerides 55, LDL 103, HDL 106. ASCVD risk of 5.4%, moderate intensity statin is recommended. Patient centered discussion had today regarding ongoing treatment for hyperlipidemia, at this time patient states that she would prefer to not go on statin and continue to prioritize lifestyle. Discussed other measures of lowering cholesterol including incorporating fiber in diet, regular vitamin D intake, use of turmeric supplements, fish oil which she currently takes, as well as maintaining regular physical activity. # Hypertension: BP stable in office. Continue amlodipine 5 mg once daily. No longer taking clonidine. Discussed red flag signs of hypertension clinic but not limited to headache, blurry vision, chest pain, difficulty breathing, dizziness, or weakness. Will continue to monitor. # Asthma: Currently well-controlled without maintenance inhalers. Continue albuterol sulfate as needed. # Bipolar II disorder: Last televisit with psychiatry on 05/13/2024. Per specialist note review, mood symptoms are well-managed. She reports some sleep issues but is satisfied with trazodone and will work on sleep hygiene. Psychiatric evaluation is without wilfredo, psychosis, delusions, or OCD behaviors. Denies SI or HI. No previous history of suicidal attempts. Plan with specialist is to continue Ativan 0.5 mg daily as needed for anxiety, trazodone 225 to 300 mg nightly for sleep as needed, and to decrease gabapentin 800 mg from 3 times daily to 2 times daily. # Insomnia: Continue trazodone 225 to 300 mg once nightly as needed for sleep. Continue to practice good sleep hygiene. # Anxiety: Stable at this time, managed with psychiatry through [facility]. Infrequently uses lorazepam for panic symptoms. Reports some improvement with the clonidine. # Migraines: Per chart review has had 2 ED visits due to severe headaches. Follows with Dr. Troy with neurology. Trialed sumatriptan however made her nauseous. Continue butalbital, APAP, and caffeine tablet. # Obesity: Weight 186 pounds, BMI 32.94. Discussed lifestyle modifications to treat underlying obesity. Patient has been improving her diet. She is down 4 pounds from her last visit in October. Continue to monitor. # Preventative medicine: Patient up-to-date on all vaccinations. Mammogram updated November 2024. Updated bone mineral density scan is scheduled. # Advance care planning: Discussed and provided forms today for healthcare proxy and MOLST. Cognition assessed and within reasonable limits Fall risk assessed. Discussed healthcare proxy. Discussed [place] order for life sustaining treatment, end-of-life issues, intubation and resuscitation dialysis artificial nutrition and hydration is appropriate. We discussed [place] order for life sustaining treatment and healthcare proxy. We discussed need for resuscitation, intubation, ventilation, need for dialysis, short-term versus long-term, nutrition, IV nutrition and hydration. Total time spent was 45 minutes with greater than 50% spent on counseling and coordinating care All questions have been answered to patient's satisfaction. Patient verbalized understanding of diagnosis and treatments explained. Advised to call sooner prior to next visit it any questions/concerns arise. Case discussed with collaborating physician Hudson Vela who reviewed the assessment and plan. Chart, medications, labs, vital signs reviewed. Dictation was accomplished with the use of [employer] voice recognition software, which is prone to medical misidentifications and grammatical errors. This are unintentional and the practitioner does try to identify and correct these, but some could still be present. Please do not hesitate to contact practitioner for clarification. 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 Complete paperwork was reviewed and updated and has been filed and scanned. Depression screen completed. Alcohol AUDIT SCREEN completed. Obesity screen completed. Cardiovascular risk stratification screen completed. # Hyperlipidemia: Lipid panel updated on 01/03/2025 with values of total cholesterol 220, triglycerides 55, LDL 103, HDL 106. ASCVD risk of 5.4%, moderate intensity statin is recommended. Patient centered discussion had today regarding ongoing treatment for hyperlipidemia, at this time patient states that she would prefer to not go on statin and continue to prioritize lifestyle. Discussed other measures of lowering cholesterol including incorporating fiber in diet, regular vitamin D intake, use of turmeric supplements, fish oil which she currently takes, as well as maintaining regular physical activity. # Hypertension: BP stable in office. Continue amlodipine 5 mg once daily. No longer taking clonidine. Discussed red flag signs of hypertension clinic but not limited to headache, blurry vision, chest pain, difficulty breathing, dizziness, or weakness. Will continue to monitor. # Asthma: Currently well-controlled without maintenance inhalers. Continue albuterol sulfate as needed. # Bipolar II disorder: Last televisit with psychiatry on 05/13/2024. Per specialist note review, mood symptoms are well-managed. She reports some sleep issues but is satisfied with trazodone and will work on sleep hygiene. Psychiatric evaluation is without wilfredo, psychosis, delusions, or OCD behaviors. Denies SI or HI. No previous history of suicidal attempts. Plan with specialist is to continue Ativan 0.5 mg daily as needed for anxiety, trazodone 225 to 300 mg nightly for sleep as needed, and to decrease gabapentin 800 mg from 3 times daily to 2 times daily. # Insomnia: Continue trazodone 225 to 300 mg once nightly as needed for sleep. Continue to practice good sleep hygiene. # Anxiety: Stable at this time, managed with psychiatry through [facility]. Infrequently uses lorazepam for panic symptoms. Reports some improvement with the clonidine. # Migraines: Per chart review has had 2 ED visits due to severe headaches. Follows with Dr. Troy with neurology. Trialed sumatriptan however made her nauseous. Continue butalbital, APAP, and caffeine tablet. # Obesity: Weight 186 pounds, BMI 32.94. Discussed lifestyle modifications to treat underlying obesity. Patient has been improving her diet. She is down 4 pounds from her last visit in October. Continue to monitor. # Preventative medicine: Patient up-to-date on all vaccinations. Mammogram updated November 2024. Updated bone mineral density scan is scheduled. # Advance care planning: Discussed and provided forms today for healthcare proxy and MOLST. Cognition assessed and within reasonable limits Fall risk assessed. Discussed healthcare proxy. Discussed [place] order for life sustaining treatment, end-of-life issues, intubation and resuscitation dialysis artificial nutrition and hydration is appropriate. We discussed [place] order for life sustaining treatment and healthcare proxy. We discussed need for resuscitation, intubation, ventilation, need for dialysis, short-term versus long-term, nutrition, IV nutrition and hydration. Total time spent was 45 minutes with greater than 50% spent on counseling and coordinating care All questions have been answered to patient's satisfaction. Patient verbalized understanding of diagnosis and treatments explained. Advised to call sooner prior to next visit it any questions/concerns arise. Case discussed with collaborating physician Hudson Vela who reviewed the assessment and plan. Chart, medications, labs, vital signs reviewed. Dictation was accomplished with the use of [employer] voice recognition software, which is prone to medical misidentifications and grammatical errors. This are unintentional and the practitioner does try to identify and correct these, but some could still be present. Please do not hesitate to contact practitioner for clarification. Plan Of Treatment Pending Test Test Name Order Date LIPID PANEL, STANDARD 11/30/2023 LIPID PANEL, STANDARD 01/03/2024 LIPID PANEL, STANDARD 06/26/2024 COMPREHENSIVE METABOLIC PANEL 06/26/2024 COMPREHENSIVE METABOLIC PANEL 11/30/2023 CBC (INCLUDES DIFF/PLT) 11/30/2023 CBC (INCLUDES DIFF/PLT) 06/26/2024 URINALYSIS, COMPLETE 11/30/2023 URINALYSIS, COMPLETE 06/26/2024 HEMOGLOBIN A1c 11/30/2023 TSH 11/30/2023 TSH W/REFLEX TO FT4 06/26/2024 VITAMIN D,25-OH,TOTAL,IA 11/30/2023 VITAMIN D,25-OH,TOTAL,IA 06/26/2024 Next Appt Details Provider Name:LALO PRATER , 05/13/2025 01:00:00 PM, [address] [facility], [facility] [address], [place], [address], Insurance Providers Payer Name Payer Address Payer Phone Subscriber Number Group Number Insured Name Patient Relationship to Insured Coverage Start Date Coverage End Date [employer]vantage [address] [place] [address] [phone] [id number] Sullivan Self - patient is the insured Medical (General) History Medical History History ICD Code hypertension hypercholesterolemia asthma weight gain/loss hemorrhoids headache Arthritis anxiety depression vision loss seasonal allergies Surgical History Surgery Date(Month/Year) 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
--- OUTSIDE RECORDS SUMMARY | 2025-03-12 18:35 | XMS_ITS | Clinical Summary ---
Author Organization [facility] Address [address] [place] [address] Phone Care Team Providers Care Checker In Name Role Phone Tan Vela MD Primary Care Provider [phone] Encounters Date Type Department Care Team Description 02/03/2025 12:39 PM EST - 02/03/2025 11:59 PM EST Hospital Encounter [facility] Bone Density [address] [place] [address] Encounter for screening for osteoporosis Discharge Disposition: Home or Self Care from Last 3 Months Medical History Medical History Date Comments Family history of cardiovascular disease DX:Family history of cardiovascular disease Essential hypertension DX:Essent ial hypertension Family History Medical History Relation Name Comments Heart failure Mother Relation Name Status Comments Mother Social History Tobacco Use Types Packs/Day Years Used Date Smoking Tobacco: Former Smokeless Tobacco: Never Comments Unknown Sex and Gender Information Value Date Recorded Sex Assigned at Not on file Legal Sex Female 3:11 AM EST Gender Identity Not on file Sexual Orientation Not on file Plan of Treatment Health Maintenance Due Date Last Done Comments Colorectal Cancer Screening: Colonoscopy 1960 Hepatitis B Vaccines (2 of 3 - 19+ 3-dose series) 01/08/2019 12/11/2018 Hepatitis C Screening 02/27/2022 Medicare Annual Wellness Visit 02/27/2022 Social Influencers of Health Screening 02/27/2022 Falls Risk Assessment 01/20/2024 Depression Screening 03/27/2024 Breast Cancer Screening 11/17/2024 11/18/19 23, 10/08/2021, 08/31/2020, Additional history exists COVID-19 Vaccine (2024- season) 2025 12/12/2024, 06/21/2024, 12/14/2023, Additional history exists Hypertension/CHF/CAD Annual BMP Blood Test 01/03/2026 01/03/2025, 06/16/2021 DTaP,Tdap,and Td Vaccines (2 - Td or Tdap) 10/26/2027 10/25/2017 Cholesterol Screening (Lipid Panel) 01/03/2030 01/03/2025, 06/16/2021, 06/16/2021, Additional history exists Osteoporosis Screening (Bone Density Screening) 02/03/2035 02/03/2025, 12/28/2018 Meningococcal ACWY Vaccine Aged Out 06/02/2021 N o longer eligible based on patient's age to complete this topic RSV Immunization Adult Patients Completed 01/02/2023 Zoster Vaccines Completed 06/21/2024, 0311/2021, 12/13/2018 MMR Vaccines Aged Out 10/07/2024 No longer eligi ble based on patient's age to complete this topic Influenza Vaccine Completed 12/12/2024, , 12/29/2022, Additional history exists Pneumococcal Vaccine: 50+ Years Completed 12/12/2024, 12/11/2018, 12/30/2008 HIB Vaccines Aged Out No longer eligi ble based on patient's age to complete this topic HPV Vaccines Aged Out No longer eligi ble based on patient's age to complete this topic Hepatitis A Vaccines Aged Out No long er eligible based on patient's age to complete this topic IPV Vaccines Aged Out No longer eligi ble based on patient's age to complete this topic Meningococcal B Vaccine Aged Out No l onger eligible based on patient's age to complete this topic RSV Immunization Patients Under 20 months Aged Out No longer eligible based on patient's age to complete this topic Varicella Vaccines Aged Out No longer eligible based on patient's age to complete this topic Procedures Procedure Name Priority Date/Time Associated Diagnosis Comments BD BONE DENSITY DXA AXIAL SKELETON Routine 02/03/2025 1:14 PM EST Encounter for screening for osteoporosis URINALYSIS WITH REFLEX MICROSCOPIC Routine 01/03/2025 11:21 AM EDT Routine general medical examination at a [facility] facility Screening for lipoid disorders Vitamin D deficiency disease Screening for thyroid disorder High risk medications (not anticoagulants) long-term use CBC WITH AUTO DIFFERENTIAL Routine 01/03/2025 11:21 AM EDT Routine general medical examination at a [facility] facility Screening for lipoid disorders Vitamin D deficiency disease Screening for thyroid disorder High risk medications (not anticoagulants) long-term use THYROID STIMULATING HORMONE WITH REFLEX TO FREE T4 AND FREE T3 Routine 01/03/2025 11:21 AM EDT Routine general medical examination at a [facility] Screening for lipoid disorders Vitamin D deficiency disease Screening for thyroid disorder High risk medications (not anticoagulants) long-term use VITAMIN D 25 HYDROXY Routine 01/03/2025 11:21 AM EDT Routine general medical examination at a [facility] Screening for lipoid disorders Vitamin D deficiency disease Screening for thyroid disorder High risk medications (not anticoagulants) long-term use LIPID PANEL WITH REFLEX TO DIRECT LDL Routine 01/03/2025 11:21 AM EDT Routine general medical examination at a [facility] Screening for lipoid disorders Vitamin D deficiency disease Screening for thyroid disorder High risk medications (not anticoagulants) long-term use URINALYSIS WITH REFLEX MICROSCOPIC Routine 01/03/2025 11:21 AM EDT Routine general medical examination at a [facility] Screening for lipoid disorders Vitamin D deficiency disease Screening for thyroid disorder High risk medications (not anticoagulants) long-term use COMPREHENSIVE METABOLIC PANEL Routine 01/03/2025 11:21 AM EDT Routine general medical examination at a health care facility Screening for lipoid disorders Vitamin D deficiency disease Screening for thyroid disorder High risk medications (not anticoagulants) long-term use CBC AND DIFFERENTIAL Routine 01/03/2025 11:21 AM EDT Routine general medical examination at a health care facility Screening for lipoid disorders Vitamin D deficiency disease Screening for thyroid disorder High risk medications (not anticoagulants) long-term use PEGGY SCREENING DIGITAL Routine 11/17/2022 4:05 PM EDT Encounter for screening mammogram for malignant neoplasm of breast from Last 3 Months or Most Recently Relevant to Health Maintenance Results * BD Bone Density DXA Axial Skeleton (02/03/2025 1:14 PM EST) Anatomical Region Laterality Modality Wrist, Hip, L-spine Bone Densito metry 02/04/2025 8:06 AM EST Impressions 02/04/2025 8:08 AM EST Osteopenia. There has been a decrease of 7.0% in bone mineral density in the lumbar spine since the prior examination of 12/28/2018. Code 50531 -------- FINAL REPORT -------- Dictated By: Oswald Witt Dictated Date: 02/04/2025 08:06 ET Assigned Physician: Oswald Witt Reviewed and Electronically Signed By: Oswald Witt Signed Date: 02/04/2025 08:08 ET Workstation ID: [id number] Transcribed By: Self Edit Transcribed Date: 02/04/2025 08:06 ET Narrative 02/04/2025 8:08 AM EST HISTORY: The patient is a 65-year-old postmenopausal [...] of age matched controls. This yields a T- score of -1.2 and a Z-score of -0.3 which is diagnostic of osteopenia. Procedure Note Oswald Witt MD - 02/04/2025 HISTORY: The patient is a 65-year-old postmenopausal female with clinicalconcern for metabolic bone disease. The patient has undergone previousbilateral hip replacement surgery. FINDINGS: Dual energy x-ray absorptiometry of the lumbar spine isperformed. The mean bone mineral density at L1-L4 (with the exclusion ofL3) is 1.031 gm/cm2 which is 88% of that of young normals and 97% of thatof age matched controls. This yields a T-score of -1.2 and a Z-score of-0.3 which is diagnostic of osteopenia. IMPRESSION: Osteopenia. There has been a decrease of 7.0% in bone mineral density inthe lumbar spine since the prior examination of 12/28/2018. Code 37746 -------- FINAL REPORT -------- Dictated By: Oswald Witt Dictated Date: 02/04/2025 08:06 ET Assigned Physician: Oswald Witt Reviewed and Electronically Signed By: Oswald Witt Signed Date: 02/04/2025 08:08 ET Workstation ID: [id number] Transcribed By: Self Edit Transcribed Date: 02/04/2025 08:06 ET Naa ALCAR[facility] IM DXA PROCEDURES Final Result * (ABNORMAL) Urinalysis with reflex microscopic (01/03/2025 11:21 AM EDT) Specific [place] Urine 1.014 1.003 - 1.030 LAB URINALYSIS - AUTOMATED METHOD 01/03/2025 1:07 PM [facility] pH, Urine 7.5 5.0 - 8.0 pH LAB URINALYSIS - AUTOMATED METHOD 01/03/2025 1:07 PM [facility] Leukocytes, Urine Large(A) Negative LAB URINALYSIS - AUTOMATED METHOD 01/03/2025 1:07 PM [facility] Nitrite, Urine Negative Negative LAB URINALYSIS - AUTOMATED METHOD 01/03/2025 1:07 PM [facility] Protein, Urine Negative <=Trace mg/dL LAB URINALYSIS - AUTOMATED METHOD 01/03/2025 1:07 PM [facility] Glucose, Urine Negative Negative mg/dL LAB URINALYSIS - AUTOMATED METHOD 01/03/2025 1:07 PM [facility] Ketones, Urine Negative Negative mg/dL LAB URINALYSIS - AUTOMATED METHOD 01/03/2025 1:07 PM [facility] Urobilinogen , Urine 1.0 0.2 - 1.0 mg/dL LAB URINALYSIS - AUTOMATED METHOD 01/03/2025 1:07 PM [facility] Bilirubin, Urine Negative Negative LAB URINALYSIS - AUTOMATED METHOD 01/03/2025 1:07 PM [facility] Blood, Urine Negative Negative LAB URINALYSIS - AUTOMATED METHOD 01/03/2025 1:07 PM [facility] RBC, Urine 0.0 0 - 4 /HPF LAB URINALYSIS - AUTOMATED METHOD 01/03/2025 1:07 PM [facility] WBC, Urine 8.0(H) 0 - 4 /HPF LAB URINALYSIS - AUTOMATED METHOD 01/03/2025 1:07 PM [facility] Squamous Epithelial, Urine 33 0 - 60 /LPF LAB URINALYSIS - AUTOMATED METHOD 01/03/2025 1:07 PM [facility] Non-Squamous Epithelial, Urine 5-10 Transitional epithelial cells. /LPF LAB URINALYSIS - AUTOMATED METHOD 01/03/2025 1:07 PM [facility] Bacteria, Urine Few(A) Negative /HPF LAB URINALYSIS - AUTOMATED METHOD 01/03/2025 1:07 PM [facility] Hyaline Casts, Urine 0.8 0 - 3 /LPF LAB URINALYSIS - AUTOMATED METHOD 01/03/2025 1:07 PM [facility] Urine Urine specimen obtained by clean catch procedure / Unknown Non-blood Collection / Unknown 01/03/2025 11:21 AM EDT 01/03/2025 12:20 PM EDT us Naa [facility] LAB URINE ORDERABLES Kathie plata Result [facility] [address] [place] [address], [place] [phone] * Thyroid stimulating hormone with reflex to free t4 and free t3 (01/03/2025 11:21 AM EDT) TSH 1.41 0.40 - 4.00 mcIU/mL LAB CHEMISTRY METHOD 01/03/2025 2:08 PM EDT [facility] Blood Venous blood specimen / Unknown Venipuncture / Unknown 01/03/2025 11:21 AM EDT 01/03/2025 12:19 PM EDT us Naa [facility]CAR[facility] LAB BLOOD ORDERABLES Kathie l Result [facility] [address] [place] [address], [place] [phone] * (ABNORMAL) Lipid panel with reflex to direct LDL (01/03/2025 11:21 AM EDT) Cholesterol 220(H) 0 - 200 mg/dL LAB CHEMISTRY METHOD 01/03/2025 1:27 PM EDT [facility] Triglycerides 55 0 - 150 mg/dL LAB CHEMISTRY METHOD 01/03/2025 1:27 PM T [facility] HDL 106 >=40 mg/dL LAB CHEMISTRY METHOD 01/03/2025 1:27 PM [facility] LDL Calculated 103(H) 0 - 100 mg/dL LAB CHEMISTRY METHOD 01/03/2025 1:27 PM EDT [facility] Comment:Estimated LDL Calcul ated using equation: Total cholesterol - HDL cholesterol - (Triglycerides/5) VLDL Cholesterol Isaac 11 mg/dL LAB CHEMISTRY METHOD 01/03/2025 1:27 PM EDT [facility] Non HDL Chol. (LDL+VLDL) 114 <145 mg/dL LAB CHEMISTRY METHOD 01/03/2025 1:27 PM [facility] Chol/HDL Ratio 2.1 0.0 - 4.4 LAB CHEMISTRY METHOD 01/03/2025 1:27 PM [facility] Blood Venous blood specimen / Unknown Venipuncture / Unknown 01/03/2025 11:21 AM EDT 01/03/2025 12:19 PM EDT Naa [facility] LAB BLOOD ORDERABLES Kathie plata Result [facility] [address] [place] [address], * CBC auto differential (01/03/2025 11:21 AM EDT) WBC 6.1 4.8 - 10.8 K/mcL LAB HEMETOLOGY METHOD 01/03/2025 12:37 PM EDT [facility] RBC 4.20 3.80 - 4.80 M/mcL LAB HEMETOLOGY METHOD 01/03/2025 12:37 PM EDT [facility] Hemoglobin 12.9 11.5 - 16.0 g/dL LAB HEMETOLOGY METHOD 01/03/2025 12:37 PM EDT [facility] Hematocrit 39.3 35.0 - 47.0 % LAB HEMETOLOGY METHOD 01/03/2025 12:37 PM EDT [facility] MCV 92.9 79.0 - 98.0 FL LAB HEMETOLOGY METHOD 01/03/2025 12:37 PM EDT [facility] MCH 30.5 27.0 - 32.0 pcg LAB HEMETOLOGY METHOD 01/03/2025 12:37 PM EDT [facility] MCHC 32.8 32.0 - 37.0 g/dL LAB HEMETOLOGY METHOD 01/03/2025 12:37 PM EDT [facility] RDW 13.4 11.0 - 15.0 % LAB HEMETOLOGY METHOD 01/03/2025 12:37 PM EDT [facility] Platelets 314 130 - 400 K/mcL LAB HEMETOLOGY METHOD 01/03/2025 12:37 PM EDT [facility] MPV 11.0 7.0 - 11.0 FL LAB HEMETOLOGY METHOD 01/03/2025 12:37 PM [facility] NRBC 0.0 <1.0 % LAB HEMETOLOGY METHOD 01/03/2025 12:37 PM [facility] NRBC Absolute 0.00 <0.10 K/[facility] Neutrophils Relative 49.6 % LAB HEMETOLOGY METHOD 01/03/2025 12:37 PM [facility] Lymphocytes Relative 32.4 % LAB HEMETOLOGY METHOD 01/03/2025 12:37 PM [facility] Monocytes Relative 12.7 % LAB HEMETOLOGY METHOD 01/03/2025 12:37 PM [facility] Eosinophils Relative 4.0 % LAB HEMETOLOGY METHOD 01/03/2025 12:37 PM [facility] Basophils Relative 1.0 % LAB HEMETOLOGY METHOD 01/03/2025 12:37 PM [facility] Immature Granulocytes Relative 0.3 % LAB HEMETOLOGY METHOD 01/03/2025 12:37 PM [facility] Neutrophils Absolute 3.00 1.50 - 7.00 K/[facility] LAB HEMETOLOGY [facility] Lymphocytes Absolute 1.96 1.00 - 5.00 K/[facility] LAB HEMETOLOGY METHOD 01/03/2025 12:37 PM [facility] Monocytes Absolute 0.77 0.20 - 1.00 K/[facility] LAB HEMETOLOGY METHOD 01/03/2025 12:37 PM [facility] Eosinophils Absolute 0.24 0.00 - 0.50 K/[facility] LAB HEMETOLOGY METHOD 01/03/2025 12:37 PM EDT [facility] Basophils Absolute 0.06 0.00 - 0.20 K/[facility] LAB HEMETOLOGY METHOD 01/03/2025 12:37 PM EDT [facility] Immature Granulocytes Absolute 0.02 0.00 - 0.03 K/[facility] LAB HEMETOLOGY METHOD 01/03/2025 12:37 PM EDT [facility] Blood Venous blood specimen / Unknown Venipuncture / Unknown 01/03/2025 11:21 AM EDT 01/03/2025 12:21 PM EDT Naa [facility] LAB BLOOD ORDERABLES Kathie l Result Performing Organization Address City/[facility]/ZIP Co de Phone Number [facility] [address] [place] [address], [place] [phone] * Vitamin D 25 hydroxy (01/03/2025 11:21 AM EDT) Vit D, 25-Hydroxy 68.2 30.0 - 80.0 ng/mL LAB CHEMISTRY METHOD 01/03/2025 2:08 PM EDT [facility] Blood Venous blood specimen / Unknown Venipuncture / Unknown 01/03/2025 11:21 AM EDT 01/03/2025 12:19 PM EDT Naa [facility] LAB BLOOD ORDERABLES Kathie l Result [facility] [address] [place] [address], [place] [phone] * Comprehensive metabolic panel (01/03/2025 11:21 AM EDT) Sodium 135 133 - 145 mmol/L LAB CHEMISTRY METHOD 01/03/2025 1:25 PM EDT [facility] Potassium 3.9 3.5 - 5.5 mmol/L LAB CHEMISTRY METHOD 01/03/2025 1:25 PM [facility] Chloride 104 96 - 110 mmol/L LAB CHEMISTRY METHOD 01/03/2025 1:25 PM [facility] CO2 27 21 - 32 mmol/L LAB CHEMISTRY METHOD 01/03/2025 1:25 PM [facility] Anion Gap 4 3 - 11 LAB CHEMISTRY METHOD 01/03/2025 1:25 PM [facility] Glucose 89 70 - 100 mg/dL LAB CHEMISTRY METHOD 01/03/2025 1:25 PM [facility] BUN 13 5 - 25 mg/dL LAB CHEMISTRY METHOD 01/03/2025 1:25 PM [facility] Creatinine 0.94 0.50 - 1.10 mg/dL LAB CHEMISTRY METHOD 01/03/2025 1:25 PM [facility] eGFR 67 >=60 mL/min/1. 73m2 LAB CHEMISTRY METHOD 01/03/2025 1:25 PM [facility] Comment:Calculation based on the Chronic Kidney Disease Epidemiology Collaboration (CKD-EPI) equation refit without adjustment for race. BUN/Creatinine Ratio 13.8 LAB CHEMISTRY METHOD 01/03/2025 1:25 PM [facility] Calcium 9.1 8.5 - 10.5 mg/dL LAB CHEMISTRY METHOD 01/03/2025 1:25 PM [facility] AST (SGOT) 21 10 - 42 unit/L LAB CHEMISTRY METHOD 01/03/2025 1:25 PM [facility] ALT (SGPT) 23 10 - 60 unit/L LAB CHEMISTRY METHOD 01/03/2025 1:25 PM [facility] Alkaline Phosphatase 80 42 - 121 unit/L LAB CHEMISTRY METHOD 01/03/2025 1:25 PM [facility] Total Protein 7.5 6.0 - 8.0 g/dL LAB CHEMISTRY METHOD 01/03/2025 1:25 PM EDT [facility] Albumin 3.9 3.2 - 5.0 g/dL LAB CHEMISTRY METHOD 01/03/2025 1:25 PM EDT [facility] Total Bilirubin 0.4 0.0 - 1.4 mg/dL LAB CHEMISTRY METHOD 01/03/2025 1:25 PM EDT [facility] Blood Venous blood specimen / Unknown Venipuncture / Unknown 01/03/2025 11:21 AM EDT 01/03/2025 12:19 PM EDT Naa [facility] LAB BLOOD ORDERABLES Kathie plata Result [facility] [address] [place] [address], * PEGGY SCREENING DIGITAL (11/17/2022 4:05 PM EDT) Anatomical Region Laterality Modality Mammography 11/17/2022 2:47 PM EDT Narrative 11/17/2022 4:[address] [facility] Diagnostic Imaging Department [address] [place] [address] Patient: KIERA COOK./Age/Sex: 1960 - 62 - F Unit#: [id number] Location/Status: SPDIMAM/REG CLI Mnem[facility] Order[facility] Physician: ELVIE URIAS MD [facility] Screening Digital - 11/17/22 - [id number] Report Status:Signed EXAM: [facility] Screening Digital EXAM DATE AND TIME: 11/17/2022 3:20 PM HISTORY: Screening. COMPARISON: 10/08/21, 08/31/20, 11/22/18 TECHNIQUE: Bilateral digital breast tomosynthesis was performed in the CC and MLO projections. Computer aided detection with RelayRides 3D 3.1 was employed. TISSUE DENSITY: b. There are scattered areas of fibroglandular density. FINDINGS: No suspicious masses, grouped microcalcifications, or areas of architectural distortion are seen. There are scattered microcalcifications, unchanged. The skin and vascularity are unremarkable. IMPRESSION: Stable mammographic appearance of the breasts. No evidence of malignancy is seen. A negative mammogram in the presence of a clinically suspicious palpable abnormality does not preclude the possibility of malignancy or alter the indications for biopsy. BI-RADS: Category 2: Benign RECOMMENDATION(S): 1: Routine screening mammogram BILATERAL in 1 year. Dictating Physician: FAITH GALVAN MD Electronically Signed by: FAITH GALVAN MD Dic Date/Time: 11/17/221603 Sign date/Time: 11/17/22 1605 Procedure Note Faith Galvan MD - 05/02/[address] [facility] Diagnostic Imaging Department [address] [place] [address] [id number] Patient: KIERA COOK/Age/Sex: 1960 - 62 - F Unit#: [id number] Location/Status: [facility] CLI Mnemonic/Ordering [facility] Ordering Physician: ELVIE URIAS MD [facility] Screening Digital - 11/17/22 - [id number] Report Status:Signed EXAM: Peggy Screening Digital EXAM DATE AND TIME: 11/17/2022 3:20 PM HISTORY: Screening. COMPARISON: 10/08/21, 08/31/20, 11/22/18 TECHNIQUE: Bilateral digital breast tomosynthesis was performed in the CCand MLO projections. Computer aided detection with RelayRides 3D 3.1was employed. TISSUE DENSITY: b. There are scattered areas of fibroglandular density. FINDINGS: No suspicious masses, grouped microcalcifications, or areas ofarchitectural distortion are seen. There are scattered microcalcifications, unchanged.The skin and vascularity are unremarkable. IMPRESSION: Stable mammographic appearance of the breasts. No evidence of malignancyis seen. A negative mammogram in the presence of a clinically suspicious palpable abnormality does not preclude the possibility of malignancy or alter the indications for biopsy. BI-RADS: Category 2: Benign RECOMMENDATION(S): 1: Routine screening mammogram BILATERAL in 1 year. Dictating Physician: FAITH GALVAN MD Electronically Signed by: FAITH GALVAN MD Dic Date/Time: 11/17/22 1604 Sign date/Time: 11/17/22 1605 us Elvie Johnson MD IMG BI PROCEDURES Final Result from Last 3 Months or Most Recently Relevant to Health Maintenance Insurance [employer] - [place] MEDICARE ADVANTAGE Advance Directives Documents on File Type Date Recorded Patient Live In Housekeeper Nanny Expl anation Health Care Decision (hx) 10/27/2021 AD POZO DIRECTIVE Health Care Decision (hx) 10/27/2021 AD POZO DIRECTIVE Health Care Decision (hx) 10/27/2021 AD POZO DIRECTIVE Health Care Decision (hx) 10/27/2021 AD POZO DIRECTIVE Care Teams Checker In Relationship Specialty Start Date End Date Tan Vela MD [address] [place] [id number] PCP - General Internal Medicine 02/03/25
== END 2025-03-12 14:27 | disposition home or self-care (01) ==
LOC: HO.HSM 13:59
PROVIDERS: PCP Internal Medicine; Referring Provider Physician Assistant; Visit Provider Registered Nurse
DX: G44.209 Tension-type headache, unspecified, not intractable (principal)
CPT/HCPCS: 99214

== ENCOUNTER → 2025-03-12 13:58 | Outpatient (BNVA) | payer MEDICARE, SELFPAY | PROVIDERS: PCP Internal Medicine; Referring Provider Physician Assistant; Visit Provider Registered Nurse | DX: G44.209 Tension-type headache, unspecified, not intractable (principal); Z79.899 Other long term (current) drug therapy | CPT/HCPCS: 99212 ==